=== PATIENT | female | born 1950 | race American Indian/Alaskan Native ===

== ENCOUNTER 2016-10-07 15:05 | Emergency (ER) | payer MEDICARE ==
[2016-10-07] MEDS ORDERED: BOOSTRIX IM ONE (18:47)
[2016-10-07] MEDS ORDERED: NORCO 5/325 PO ONE (18:48)
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
[2016-10-07 18:58] LABS: Basophils % (Auto) 0.3 % (0.0-1.8); Eosinophils % (Auto) 0.1 % (0.0-4.3); Hemoglobin 9.6 gm/dl (10.1-14.3); Mean Corpuscular HGB Conc 32 % (30-34); Mean Corpuscular Hemoglobin 29 pg (28-32); Mean Corpuscular Volume 91 fl (79-97); Platelet Count 310 K/mm3 (140-440); Red Blood Count 3.31 M/mm3 (3.65-5.03); Red Cell Distribution Width 15.2 % (13.2-15.2)
[2016-10-07 19:08] LABS: BUN/Creatinine Ratio 5.86; Calcium 9.6 mg/dL (8.4-10.2); Chloride 90.7 mmol/L (98-107); Potassium 5.2 mmol/L (3.6-5.0)
[2016-10-07 19:13] LABS: INR 1.16 (0.87-1.13)
[2016-10-07 19:14] LABS: Partial Thromboplastin Time 28.7 Sec. (24.2-36.6)
[2016-10-07] MEDS ORDERED: TRIPLE ANTIBIOTIC TP ONE ×2 (19:44→21:18)
[2016-10-07] MEDS ORDERED: ZOFRAN IV ONE (19:59)
[2016-10-07] MEDS ORDERED: BACITRACIN (ED) OINT PACKET TP ONE (20:00)
--- NOTE | 2016-10-07 20:00 | Cat Scan Report ---
FINAL REPORT EXAM: CT CERVICAL SPINE WO CON HISTORY: fall, hit head, on blood thinners TECHNIQUE: CT imaging is acquired through the cervical spine without contrast. Transaxial, coronal and sagittal reformations are provided. PRIORS: None. FINDINGS: Diffuse demineralization. The cervical spine is intact. Vertebral body heights are preserved. No acute fracture or listhesis. Atlanto-dens interval and odontoid process are intact. Intervertebral disc narrowing is moderate with associated endplate spondylosis C5-C6.. No perivertebral soft tissue swelling or hematoma identified. Limited soft tissue exam of the visualized neck is remarkable for a partially imaged right chest port, as well as scattered carotid calcifications. IMPRESSION: No acute cervical spine fracture identified. Sensitivity of fracture detection is decreased by demineralization and degenerative findings. Correlate with physical exam and follow up as warranted.
--- NOTE | 2016-10-07 20:02 | Cat Scan Report ---
FINAL REPORT EXAM: CT HEAD/BRAIN WO CON HISTORY: fall, hit head, on blood thinners TECHNIQUE: CT imaging is acquired through the brain without contrast. Transaxial reformations are provided. PRIORS: None. FINDINGS: Ventricles and CSF spaces are proportionately enlarged, consistent with parenchymal atrophy. Scattered deep and subcortical white matter hypodense foci are confluent in some areas and are compatible with microvascular angiopathy. No acute intracranial hemorrhage or mass effect. Left frontal and periorbital soft tissue swelling. Partially imaged fluid in the left maxillary sinus. Please see CT face of the same date. IMPRESSION: No acute intracranial abnormality. There are chronic sequela of atrophy and microvascular angiopathy. Left frontal and periorbital soft tissue swelling with fluid in the left maxillary sinus. Please see CT face of the same date.
--- NOTE | 2016-10-07 20:12 | Cat Scan Report ---
FINAL REPORT EXAM: CT FACIAL BONES WO CON HISTORY: fall, left facial injury TECHNIQUE: CT images are acquired through the face without contrast. Transaxial coronal and sagittal reformations are provided. PRIORS: Head CT of the same date FINDINGS: No facial fracture identified. Specifically, bony orbits, nasal bones and septum, pterygoid plates, mandible and maxilla appear intact.. Apical lucencies in the maxilla or most prominent about the left lateral incisor seen on coronal image 15. Streak artifact is present from dental catholic. Normal spherical shape of the globes. Retro bulbar fat is unremarkable. Preseptal left periorbital and left frontal soft tissue swelling and stranding. Hyperostosis frontalis. There is moderate mucosal thickening with a fluid level in the left maxillary sinus. Mild frontal ethmoid and right maxillary mucosal thickening in. A small fluid level is also present in the sphenoid sinus. The imaged nasopharynx is unremarkable. Mastoid air cells are unremarkable. IMPRESSION: No facial fracture. Mucosal thickening and fluid level in the left maxillary sinus are favored to be secondary to infection/sinusitis. Left maxillary incisor periapical lucency is concerning for dental infection. Clinical correlation is requested.
[2016-10-07] MEDS ORDERED: ZOFRAN ODT PO ONE (20:23)
[2016-10-07 20:37] VITALS: BP 138/76
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
[2016-10-07] MEDS ORDERED: KIONEX PO ONE (20:46)
[2016-10-08] MEDS ORDERED: TRIPLE ANTIBIOTIC TP ONE (03:27)
== END 2016-10-07 21:25 | disposition home or self-care (01) ==
LOC: ED 15:05
DX: S09.90XA Unspecified injury of head, initial encounter (principal); S80.01XA Contusion of right knee, initial encounter; I12.0 Hypertensive chronic kidney disease with stage 5 chronic kidney disease or end stage renal disease; N18.6 End stage renal disease; E87.5 Hyperkalemia; Z86.73 Personal history of transient ischemic attack (TIA), and cerebral infarction without residual deficits; I25.2 Old myocardial infarction; E11.9 Type 2 diabetes mellitus without complications; W01.0XXA Fall on same level from slipping, tripping and stumbling without subsequent striking against object, initial encounter; Y93.01 Activity, walking, marching and hiking; Y92.89 Other specified places as the place of occurrence of the external cause; Y99.8 Other external cause status
CPT/HCPCS: 36415; 70450; 70486; 72125; 80048; 85025; 85610; 85730; 90471; 90715; 93005; 93010; A6250; Q0162

== ENCOUNTER 2016-10-11 23:43 | Inpatient (IN) | payer MEDICARE ==
[2016-10-11] MEDS ORDERED: D50W (25GM) IV ONE (23:59)
[2016-10-12] MEDS ORDERED: D50W (25GM) IV ONE (00:07)
[2016-10-12] MEDS ORDERED: ZOFRAN IV ONE (00:08)
[2016-10-12 00:29] LABS: Mean Corpuscular HGB Conc 27 % (30-34); Mean Corpuscular Hemoglobin 29 pg (28-32); Mean Corpuscular Volume 105 fl (79-97); Platelet Count 529 K/mm3 (140-440); Red Blood Count 3.32 M/mm3 (3.65-5.03); Red Cell Distribution Width 16.7 % (13.2-15.2); White Blood Count 17.4 K/mm3 (4.5-11.0)
[2016-10-12 00:34] LABS: Hematocrit 34.9 % (30.3-42.9); Hemoglobin 9.4 gm/dl (10.1-14.3)
[2016-10-12 00:42] LABS: Albumin 3.3 g/dL (3.9-5); Albumin/Globulin Ratio 0.7 %; BUN/Creatinine Ratio 5.83; Bilirubin,Total 0.3 mg/dL (0.1-1.2); Calcium 9.9 mg/dL (8.4-10.2); Chloride 83.6 mmol/L (98-107); Potassium 5.3 mmol/L (3.6-5.0); Total Protein 8.1 g/dL (6.3-8.2)
--- NOTE | 2016-10-12 00:57 | Emergency Department Report ---
ED General Adult HPI - General Stated complaint: NAUSEA/VOMITING Time Seen by Provider: 10/12/16 00:02 Source: patient, family Mode of arrival: Stretcher Limitations: Altered Mental Status (ed caveat for altered mental status) - History of Present Illness Initial comments: This is a 66-year-old female brought in by EMS after nephew noted the patient to be unresponsive. EMS arrived on scene and found patient to have low blood sugar. He was given oral glucose. She did have some increase in temperature of her mental status. And was brought to us. Upon arrival here she still noted to be quite altered. IV was established patient was given D50 with good results. Patient still seems to be quite agitated and uncomfortable. She still has significant confusion as well. Daughter is at the bedside and is the major historian at this time. Daughter indicates patient is new onset end-stage renal disease with hemodialysis. She did get dialyzed on Friday and Friday. She went for dialysis this morning but apparently her catheter was clogged and could not be dialyzed. She is supposed to follow-up on Friday for reassessment of her catheter. Patient has had poor oral intake in general. She apparently has had other episodes of hypoglycemia. The daughter indicates this one seems much worse than the prior ones. Recent admission to the hospital one week ago which sounds similar to presentation today as well. She had metabolic acidosis at that time as well combination likely due to uremia as well as lactic acidosis. She was on a bicarbonate drip and ultimately require required hemodialysis. The patient specifically complains of some nausea. No vomiting. Minimal abdominal pain. -: Gradual, hour(s) Location: abdomen Radiation: non-radiation - Related Data Home Medications Medication Instructions Recorded Confirmed Last Taken AtorvaSTATin [Lipitor] 80 mg PO HS 09/27/16 10/07/16 09/25/16 Colchicine 0.6 mg PO BID 09/27/16 10/07/16 09/25/16 Ranitidine HCl [Zantac 300 MG TAB] 300 mg PO DAILY 09/27/16 10/07/16 09/25/16 metFORMIN [Glucophage] 500 mg PO BID 09/27/16 10/07/16 09/25/16 Previous Rx's Medication Instructions Recorded Last Taken Type Losartan [Cozaar] 100 mg PO QDAY #30 tablet 10/05/16 Unknown Rx Sodium Polystyrene Sulfonate 45 gm PO ONCE #180 ml 10/07/16 Unknown Rx traMADol [Ultram] 50 mg PO Q6HR PRN #10 tablet 10/07/16 Unknown Rx Allergies Allergy/AdvReac Type Severity Reaction Status Date / Time No Known Allergies Allergy Unverified 09/26/16 13:51 ED Review of Systems ROS: Stated complaint: NAUSEA/VOMITING Other details as noted in HPI Comment: Unobtainable due to pts medical conditions Respiratory: denies: cough Cardiovascular: denies: chest pain Gastrointestinal: abdominal pain, nausea. denies: vomiting, diarrhea ED Past Medical Hx - Past Medical History Hx Hypertension: Yes Hx CVA: Yes Hx Heart Attack/AMI: Yes Hx Diabetes: Yes Hx Renal Disease: Yes Hx HIV: No - Surgical History Hx Open Heart Surgery: Yes (CABG 2005) - Social History Smoking Status: Never Smoker - Medications Home Medications: Home Medications Medication Instructions Recorded Confirmed Last Taken Type AtorvaSTATin [Lipitor] 80 mg PO HS 09/27/16 10/07/16 09/25/16 History Colchicine 0.6 mg PO BID 09/27/16 10/07/16 09/25/16 History Ranitidine HCl [Zantac 300 MG TAB] 300 mg PO DAILY 09/27/16 10/07/16 09/25/16 History metFORMIN [Glucophage] 500 mg PO BID 09/27/16 10/07/16 09/25/16 History Losartan [Cozaar] 100 mg PO QDAY #30 tablet 10/05/16 10/07/16 Unknown Rx Sodium Polystyrene Sulfonate 45 gm PO ONCE #180 ml 10/07/16 Unknown Rx traMADol [Ultram] 50 mg PO Q6HR PRN #10 tablet 10/07/16 Unknown Rx ED Physical Exam - General Limitations: Altered Mental Status General appearance: lethargic, in distress, other (rapid breathing) - Head Head exam: Present: other (L forehead and L periorbital region with ecchymoses c /w 4-5 days. No bony depression appreciated.) - Eye Eye exam: Present: PERRL, EOMI, other (Large L subconj hematoma. ) - ENT ENT exam: Present: normal orophraynx, mucous membranes dry - Neck Neck exam: Present: full ROM. Absent: tenderness, meningismus, lymphadenopathy - Respiratory Respiratory exam: Present: other (tachypnea). Absent: wheezes, rales, decreased breath sounds - Cardiovascular Cardiovascular Exam: Present: tachycardia, other (L chest wall with port-a-cath in place. No surrounding erythema). Absent: systolic murmur, diastolic murmur - GI/Abdominal GI/Abdominal exam: Present: soft, tenderness (mild), normal bowel sounds. Absent: guarding, rebound - Extremities Exam Extremities exam: Present: pedal edema (trace). Absent: tenderness, calf tenderness - Back Exam Back exam: Absent: CVA tenderness (R), CVA tenderness (L), paraspinal tenderness , rash noted - Neurological Exam Neurological exam: Present: other (follows very simple commands. Moves all 4 extremities spontaneously. He is quite somnolent here.) - Skin Skin exam: Present: warm, dry, intact. Absent: diaphoretic ED Course Vital Signs 10/12/16 10/12/16 10/12/16 00:05 00:26 02:00 Temperature Pulse Rate 118 H 111 H Respiratory 34 H 24 Rate Blood Pressure 158/80 Blood Pressure 154/77 [Left] O2 Sat by Pulse 100 98 96 Oximetry 10/12/16 10/12/16 10/12/16 02:43 03:00 03:46 Temperature 92.7 F L Pulse Rate 99 H Respiratory 21 Rate Blood Pressure Blood Pressure 132/113 76/49 [Left] O2 Sat by Pulse 96 Oximetry 10/12/16 10/12/16 04:30 04:45 Temperature Pulse Rate 97 H 94 H Respiratory 15 16 Rate Blood Pressure Blood Pressure 78/39 75/42 [Left] O2 Sat by Pulse 100 99 Oximetry - Reevaluation(s) Reevaluation #1: 10/12/16 02:25 ECG at 0046 with sinus tachycardia at 119 bpm normal AL and QRS is noted. Nonspecific ST-T wave abnormalities are noted. Normal Moira is noted. Reevaluation #2: 10/12/16 02:36 Patient is not well-appearing here appears to be acidotic. Tachypnea is noted. CO2 is 5 here. Lactate is noted to be quite high at 20 patient was given 1 L saline bolus due to appearing dehydrated as well as needing to wash out the lactate. A little bit limited as she is only minimally urine producing. She does need dialysis. Did look for infectious etiology chest x-ray appears normal. Awaiting urinalysis. Cell count noted to be elevated troponin is also noted be elevated. Suspect this is more a stress response and a primary cardiac etiology. ECG does not demonstrate STEMI. CT brain is negative for acute process. Dr. Vasquez from hospitalist service was contacted regarding this patient. I consider to be in septic shock. I did start her empirically on antibiotics. I do not see etiology to this though I do feel it is a possibility. Her acidosis appears consistent with the lactate as well as probably uremia component as well. Suspicion is her hypoglycemia is secondary to the other conditions described though it could be the primary problem and they cause for the other systems noted as well 10/12/16 06:07 Reevaluation #3: 10/12/16 06:07 Central line was placed to the pressures continuing to drop. The patient was started on norepinephrine. She will be admitted to the ICU. Passive rewarming has been taking place as well with Iqra perry. - Central Line Placement Left SC Consent Obtained: emergent situation Time Out Performed: Yes Patient Placed on Monitor/Pulse Ox: Yes MD Prep: mask, gown, gloves Central Line Prep: Chlorhexidine scrub Local Anesthesia Used: Lidocaine 1% Amount of Anesthesia Used (mls): 1 Ultrasound Used for Placement: Yes Central Line Lumen Inserted: triple Bloods Obtained for Lab: Yes Central Line Position: good blood return, sutured in place with 2-0, other ( proximal port failed to return blood but flushes well.) Dressing Applied: Tegaderm Post Procedure X-Ray: tip of catheter in good p Patient Tolerated Procedure: well ED Medical Decision Making - Lab Data Result diagrams: 10/12/16 00:02 10/12/16 00:02 - Radiology Data Radiology results: report reviewed, image reviewed interpreted by me: Chest x-ray with out acute. Chest x-ray without acute CT brain without acute process. Small ischemic changes are noted please refer to the CT results. Critical Care Time: Yes Critical care time in (mins) excluding proc time.: 45 Critical care attestation.: If time is entered above; I have spent that time in minutes in the direct care of this critically ill patient, excluding procedure time. ED Disposition Clinical Impression: Septic shock, Renal failure, Lactic acidosis, Hypoglycemia Disposition: OP ADMITTED IP TO THIS HOSP Is pt being admited?: Yes Does the pt Need Aspirin: No Condition: Stable Time of Disposition: 02:26
[2016-10-12] MEDS ORDERED: NACL 0.9% 1000 ML 1,000 ML IV ONE ×6 (01:06→11:42)
[2016-10-12 01:46] LABS: Bilirubin,Urine NEG (Negative); Blood,Urine SM (Negative); Ketones,Urine TR mg/dL (Negative); Leukocyte Esterase,Urine NEG (Negative); Nitrite,Urine NEG (Negative); RBC,Urine < 1.0 /HPF (0.0-6.0); Urobilinogen,Urine < 2.0 mg/dL (<2.0)
[2016-10-12] MEDS ORDERED: ROCEPHIN/NS 1 GM/50 ML 1 GM/50 ML BAG IV ONE (02:02)
--- NOTE | 2016-10-12 02:09 | Cat Scan Report ---
FINAL REPORT PROCEDURE: CT HEAD/BRAIN WO CON TECHNIQUE: Computerized tomography of the head was performed without contrast material. HISTORY: trauma COMPARISON: 10/07/2016 FINDINGS: Skull and scalp: There is left frontal scalp swelling. There is no skull fracture.. Paranasal sinuses: Normal. Ventricles and subarachnoid spaces: There is advanced central and cortical atrophy. There is no hydrocephalus or asymmetry.. Cerebrum: No evidence of hemorrhage, acute infarction or mass . Cerebellum and brainstem: No evidence of hemorrhage, acute infarction or mass. There is an old lacunar infarct defect in the kenny. Vasculature: Normal. Comments: There is chronic deep white matter ischemic gliosis. There are old lacunar infarct defects in the basal ganglia bilaterally.. IMPRESSION: There are chronic involutional and ischemic changes. There is no intracranial hemorrhage. There is left frontal scalp swelling.
[2016-10-12 02:34] LABS: Basophils % (Manual) 0 % (0.0-1.8); Blastocytes % (Manual) 0 %; Eosinophils % (Manual) 0 % (0.0-4.3); Total Cells Counted Percent 0
[2016-10-12 02:35] LABS: Anisocytosis 1+; Hypochromasia 1+
[2016-10-12 02:36] LABS: Burr Cells 1+; Diff Status Complete; Large Platelets Few; Platelet Estimate Consistent w Auto
[2016-10-12] MEDS ORDERED: SODIUM BICARBONATE 150 MEQ in D5W 1,000 ML IV ONE (03:45)
[2016-10-12] MEDS: LEVOPHED DRIP 4 MG/NS 250 ML 4 MG/250 ML BAG IV SCH ×2 (05:28→13:49)
--- NOTE | 2016-10-12 07:49 | XRay Report ---
FINAL REPORT PROCEDURE: XRAY CHEST SINGLE VIEW TECHNIQUE: Chest radiograph anteroposterior view. CPT 37411 HISTORY: Nausea and Vomiting. Diabetes. Dialysis PT. Septic Shock. Renal Failure. Acidosis. COMPARISON: Chest one view 09/26/2016 FINDINGS: Vaso cath has its tip projecting over the SVC as well as noted smaller line overlying the left neck tip projecting over the SVC. Prior CABG noted. The heart is top-normal in size. There no focal infiltrate, pneumothorax or definite pleural fluid. The thoracic cage is intact. IMPRESSION: No radiographically evident acute disease.
[2016-10-12 09:02] LABS: Albumin 2.7 g/dL (3.9-5); Albumin/Globulin Ratio 0.7 %; Alkaline Phosphatase 99 units/L (35-129); BUN/Creatinine Ratio 6.04; Bilirubin,Total 0.2 mg/dL (0.1-1.2); Blood Urea Nitrogen 52 mg/dL (7-17); Calcium 9.2 mg/dL (8.4-10.2); Chloride 81.9 mmol/L (98-107); Glucose 320 mg/dL (65-100); Sodium 139 mmol/L (137-145); Total Protein 6.4 g/dL (6.3-8.2)
[2016-10-12 09:07] LABS: Anion Gap 60 mmol/L
[2016-10-12 09:11] LABS: Alanine Aminotransferase < 5 units/L (7-56); Carbon Dioxide 3 mmol/L (22-30)
[2016-10-12 09:24] LABS: ISTAT Base Excess -26; ISTAT HCO3 4.1; ISTAT PCO2 13.8 (35-45); ISTAT PO2 155 (80-105); ISTAT SO2 99; ISTAT TCO2 < 5
[2016-10-12] MEDS ORDERED: SODIUM BICARBONATE IV ONE ×4 (09:28→10:30)
--- NOTE | 2016-10-12 09:32 | XRay Report ---
AP CHEST: HISTORY: Altered mental status CABG changes and right IJ venous catheter are unchanged since 09/26/16. Heart and mediastinal structures are within normal limits. The lungs are clear. No pleural effusion or pneumothorax. IMPRESSION: No acute cardiopulmonary process.
[2016-10-12] MEDS ORDERED: SODIUM BICARBONATE 150 MEQ in D5W 1,000 ML IV SCH (10:00)
--- NOTE | 2016-10-12 11:42 | Event Note ---
Date: 10/12/16 See H/p in reports Sepsis Hypoglycemia ESRD on HD Hypotension on levophed GERD Vas cath malfunction
--- NOTE | 2016-10-12 11:49 | Consultation ---
History of Present Illness - Reason for Consult Consult date: 10/12/16 Metabolic acidosis, Hypotension, hyperkalemia Requesting physician: MILI RIOS - History of Present Illness 66 y/o female with ESRD on HD, admitted with toxic encephalopathy, and hypotension. Mixed reports but per nursing who spoke with daughter, patient found down at home. was brought to ED and was hypotensive. Questionable if she had HD this week or not. Per Daughter, missed M and yesterday but had HD on Friday. In the ED appears a venous pH was less than 7. Bicarb drip was started and patient was started on vasopressors and transferred to ICU this am during shift change. An ABG was ordered and I was called with the results. I had not been notified about this patient prior to arrival to ICU. pH this am was 7. CO2 was 13. Bicarb was 3 and Lactic acid is 23. I ordered 4 more liter boluses of fluid (patient satting 100% on room air) and ordered bicarb pushes. IT does not appear that renal or IR were notified until this am as well. Patient is obtunded but responds to painful stimuli. Remainder is negative. Past History Past Medical History: diabetes, ESRD, GERD, hypertension, hyperlipidemia, other (all history obtained from chart as patient cannot provide at this time. ) Medications and Allergies Allergies Allergy/AdvReac Type Severity Reaction Status Date / Time No Known Allergies Allergy Unverified 09/26/16 13:51 Home Medications Medication Instructions Recorded Confirmed Last Taken Type AtorvaSTATin [Lipitor] 80 mg PO HS 09/27/16 10/12/16 09/25/16 History Colchicine 0.6 mg PO BID 09/27/16 10/12/16 09/25/16 History Ranitidine HCl [Zantac 300 MG TAB] 300 mg PO DAILY 09/27/16 10/12/16 09/25/16 History metFORMIN [Glucophage] 500 mg PO BID 09/27/16 10/12/16 09/25/16 History Losartan [Cozaar] 100 mg PO QDAY #30 tablet 10/05/16 10/12/16 Unknown Rx Sodium Polystyrene Sulfonate 45 gm PO ONCE #180 ml 10/07/16 10/12/16 Unknown Rx traMADol [Ultram] 50 mg PO Q6HR PRN #10 tablet 10/07/16 10/12/16 Unknown Rx Active Meds: Active Medications Norepinephrine (Levophed Drip 4 Mg/Ns 250 Ml) 4 mg in 250 mls @ 18.75 mls/hr IV TITR GUANACO; 5 MCG/MIN PRN Reason: Protocol Last Titration: 10/12/16 10:18 Dose: 8 mcg/min, 30 mls/hr Sodium Bicarbonate 150 meq/ (Dextrose) 1,150 mls @ 250 mls/hr IV DIRECT GUANACO Vasopressin 20 unit/ Sodium (Chloride) 101 mls @ 12.12 mls/hr IV TITR GUANACO; 0.04 UNITS/MIN PRN Reason: Protocol Sodium Chloride (Nacl 0.9% 1000 Ml) 1,000 mls @ 999 mls/hr IV BOLUS ONE Stop: 10/12/16 12:41 Sodium Chloride (Nacl 0.9% 1000 Ml) 1,000 mls @ 999 mls/hr IV BOLUS ONE Stop: 10/12/16 12:42 Sodium Chloride (Nacl 0.9% 1000 Ml) 1,000 mls @ 999 mls/hr IV BOLUS ONE Stop: 10/12/16 12:42 Influenza Virus Vaccine Quadrival (Fluarix Quad 2755-4625(36 Mos+)) 60 mcg IM .ONCE ONE Stop: 10/13/16 12:01 Insulin Human Regular (Novolin R) 10 units IV ONCE ONE Stop: 10/12/16 12:01 Pneumococcal Polyvalent Vaccine (Pneumovax 23) 0.5 ml IM .ONCE ONE Stop: 10/13/16 08:43 Review of Systems ROS unobtainable: due to mental status Exam - Constitutional Vitals: Temp Pulse Resp BP Pulse Ox 94.3 F L 115 H 27 H 124/60 100 10/12/16 08:00 10/12/16 08:40 10/12/16 08:40 10/12/16 08:40 10/12/16 08:40 General appearance: Present: no acute distress, disheveled, other (black left eye with some hemorrhage) - EENT ENT: hearing intact, poor dentition - Neck Neck: Present: supple Details: EVidence of prior venous access sticks on right side of neck - Respiratory Respiratory effort: other (tachypnic, which appropriate based on acid base status) Respiratory: bilateral: CTA Details: Patient with HD catheter in right chest Results - Labs CBC & Chem 7: 10/12/16 00:02 10/12/16 08:05 Labs: Abnormal lab results 10/12/16 10/12/16 10/12/16 Range/Units 06:45 07:51 08:05 POC ABG pH (7.35-7.45) POC ABG pCO2 (35-45) POC ABG pO2 (80-105) VBG pH 6.953 L* (7.320-7.420) Potassium 6.0 H (3.6-5.0) mmol/L Chloride 81.9 L (98-107) mmol/L Carbon Dioxide 3 L* (22-30) mmol/L BUN 52 H (7-17) mg/dL Creatinine 8.6 H (0.7-1.2) mg/dL Glucose 320 H (65-100) mg/dL POC Glucose 298 H (70-105) Lactic Acid (0.7-2.0) mmol/L ALT < 5 L (7-56) units/L Albumin 2.7 L (3.9-5) g/dL 10/12/16 10/12/16 10/12/16 Range/Units 08:05 08:42 11:13 POC ABG pH 7.080 L (7.35-7.45) POC ABG pCO2 13.8 L (35-45) POC ABG pO2 155 H (80-105) VBG pH (7.320-7.420) Potassium (3.6-5.0) mmol/L Chloride (98-107) mmol/L Carbon Dioxide (22-30) mmol/L BUN (7-17) mg/dL Creatinine (0.7-1.2) mg/dL Glucose (65-100) mg/dL POC Glucose 281 H (70-105) Lactic Acid 22.7 H* (0.7-2.0) mmol/L ALT (7-56) units/L Albumin (3.9-5) g/dL - Imaging and Cardiology Chest x-ray: image reviewed (Cardiomegaly with clear lung krueger, prior surgical clips) Assessment and Plan 66 y/o female with toxic encephalopathy secondary to severe metabolic acidosis with elevated lactic acid and renal failure, possible from lack of HD vs, sepsis vs ischemia with shock, most likely related to profound acidemia and hyperkalemia. 1. Insulin 10 units. Patient already on D5 with Bicarb drip. Also given 2 amps of bicarb pushed this am 2. Will add vasopressin to levophed to help with blood pressure given profound acidemia, doubt that levophed is helping much 3. Continue to bolus IVF's, despite renal disease. 4. Serial lactic acids, at least q 6hours 5. Will discuss with RT about obtaining art line if possible 6. At this point, not indicated for intubation as she is able to protect her airway, however she is critically il. 7. Follow up with renal in regards to HD, hopeful they can do this soon Overall prognosis is guarded to poor. No family at bedside. CCT 31 minutes.
[2016-10-12] MEDS ORDERED: NACL 0.9% 100 ML IV PRN (12:14)
[2016-10-12] MEDS: PITRESSin 20 UNIT in NACL 0.9% 100 ML IV SCH (12:25)
--- NOTE | 2016-10-12 13:14 | XRay Report ---
SUPINE KUB: History: Dobbhoff tube placement. The abdominal gas pattern is unremarkable. No masses or organomegaly is identified and there is no gross evidence of free air or fluid. No significant soft tissue calcifications are noted. The Dobbhoff tube is coiled in the fundus of the stomach. IMPRESSION: Normal study.
[2016-10-12] MEDS ORDERED: VANCOMYCIN PHARMACY TO DOSE IV SCH (14:00)
--- NOTE | 2016-10-12 14:18 | History and Physical Report ---
CHIEF COMPLAINT: Altered mental status and low blood sugar. HISTORY OF PRESENT ILLNESS: A 66-year-old female, who was recently started on hemodialysis, brought in for low blood sugar and altered mental status. The patient has fever and altered mental status. On arrival, she was found to be quite altered. D50 was given with good results, but the patient seemed to be quite agitated and uncomfortable, was still confused. The patient had new onset end-stage renal disease with hemodialysis. She did get dialyzed on Friday and Friday; today is Friday, she went for dialysis, where the catheter was clogged and could not be dialyzed. She was supposed to follow up on Friday for reassessment for catheter. The patient had poor oral intake in general. She has been having episodes of hypoglycemia. She has history of diabetes and was on metformin till recently and metformin was not discontinued in spite of worsening renal function. PAST MEDICAL HISTORY: As mentioned, significant for hypertension, cerebrovascular accident, end-stage renal disease , and diabetes. PAST SURGICAL HISTORY: Coronary artery bypass graft in 2005. SOCIAL HISTORY: Does not smoke. No alcohol, no recreational drugs. Lives with family. FAMILY HISTORY: Significant for hypertension. CURRENT MEDICATIONS: Atorvastatin 80 mg p.o. at bedtime, colchicine 0.6 twice a day, ranitidine 300 mg once a day, metformin 500 mg twice a day, losartan 100 mg once a day, sodium polystyrene sulfonate 45 g once a day, and tramadol 50 mg p.o. q.6. REVIEW OF SYSTEMS: Significant for altered sensorium, agitation, confusion, and fever. PHYSICAL EXAMINATION: GENERAL: Elderly female, altered sensorium, agitated, lying in bed. VITAL SIGNS: Temperature was 92.7, pulse rate is 118, respiratory rate is 34, and blood pressure was 154/77, which later dropped to 76/49 and 75/42. HEENT: Unremarkable. Pupils are equal and reactive. NECK: Supple, no lymphadenopathy, no thyromegaly. LUNGS: Clear to auscultation and percussion. Good air entry. CARDIOVASCULAR: S1, S2 heard. No gallop, no murmur, no rub. Apical impulse in left fifth intercostal space and midclavicular line. ABDOMEN: Soft and benign. No hepatosplenomegaly. No guarding, no rigidity. Hernial orifices are normal. EXTREMITIES: Good pedal pulses. No pedal edema. CENTRAL NERVOUS SYSTEM: Lethargic, altered sensorium, decreased responsiveness, and agitated occasionally. SKIN: Normal. LABORATORY DATA: Significant for white count of 17,400; hemoglobin of 9.4 and hematocrit of 34.9. As mentioned sodium is 139, potassium is 5.3, chloride is 83.6, bicarbonate is 5, glucose is 19. Lactic acid is 20.2. Lipase is 214. Urine negative. Head CT was normal. Chest x-ray shows no acute cardiopulmonary process. ASSESSMENT AND PLAN: 1. Septic shock syndrome. The patient is put on IV Zosyn, IV fluids, and IV Levophed. 2. Hypoglycemia corrected. Persistent hypoglycemia secondary to end-stage renal disease and metformin. Metformin is stopped. Metformin needs to be discontinued totally because of the high creatinine. Continue hemodialysis. Vascath malformation. 3. Vascath malformation, Vascular Surgery consult requested. 4. End-stage renal disease, needing dialysis. Nephrology consulted. 5. Hypotension, IV Levophed titrated to keep the systolic blood pressure over 100. 6. Type 2 diabetes. The patient does not need to be on metformin. We will hold metformin and Accu-Cheks in the morning and at bedtime coverage. 7. Hypertension. We will hold antihypertensives as the patient is hypotensive. 8. Gastroesophageal reflux disease. Continue ranitidine. 9. Deep venous thrombosis prophylaxis, heparin 5000 q.12. The patient is critically ill. In the ED, the patient was started with a central line on IV Levophed and IV antibiotics. Also, possibly to be done. CRITICAL CARE STATEMENT: The high probability of a clinically significant sudden or life-threatening deterioration of the cardiopulmonary system required my full and direct attention, intervention, and personal management. The aggregate critical care time was 40 minutes. This time is in addition to time spent performing reported procedures, but includes the following; data review and interpretation, the patient's assessment and monitoring of vital signs, documentation, medication orders and management. JOB# [id number] MORENA/JAYDEN CLAY
[2016-10-12] MEDS ORDERED: KIONEX PO ONE (14:32)
--- NOTE | 2016-10-12 14:44 | XRay Report ---
FINAL REPORT PROCEDURE: XR ABDOMEN 1V AP TECHNIQUE: AP view HISTORY: Right femoral Vas Cath placement COMPARISON: None FINDINGS: Right femoral Vas-Cath has been placed, catheter tip overlying the expected location of the IVC superior L2 level. There is a dense calcification of the left hemipelvis 6.2 x 6.5 centimeters likely a calcified fibroid. Bowel gas pattern is nonspecific. Feeding tube is in place coiled within the stomach. There is no acute osseous abnormality. IMPRESSION: Right femoral Vas-Cath in place, distal catheter tip at the superior L2 vertebral body level. Feeding tube in place. No radiographically evident acute abdominal disease. Calcified fibroid.
[2016-10-12] MEDS: ZOSYN/NS 2.25 GM/50ML 2.25 GM/50 ML BAG IV SCH (14:49)
[2016-10-12] MEDS ORDERED: VANCOMYCIN VIAL 500 MG in NACL 0.9% 100 ML IV SCH (15:00)
--- NOTE | 2016-10-12 16:11 | Consultation ---
History of Present Illness - Reason for Consult Consult date: 10/12/16 nonfunctioning vascular catheter - History of Present Illness 66 year old female with ESRD on HD who was admitted with toxic encephalopathy, and hypotension. According to the patient's daughter, she fell on Friday injuring her left face and one of her legs, had dialysis on Friday, but on Friday could not have dialysis due to catheter malfunction (clotted catheter). [facility] was not contacted. The patient had altered mental status with severe metabolic derangements including severe hypoglycemia (which the family reports this happened in the past) and was brought to the emergency room due to the mental status decline at home. Unclear if she was "found down". Consultation for nonfunctional PermCath. Evaluation of the right chest PermCath demonstrates no purulence or erythema. The patient is severely altered. Past History Past Medical History: diabetes, ESRD, GERD, hypertension, hyperlipidemia, other (all history obtained from chart as patient cannot provide at this time. ) Past Surgical History: Other (patient unable to provide history) Social history: other (patient unable to provide history) Family history: other (non-contributory) Medications and Allergies Allergies Allergy/AdvReac Type Severity Reaction Status Date / Time No Known Allergies Allergy Unverified 09/26/16 13:51 Home Medications Medication Instructions Recorded Confirmed Last Taken Type AtorvaSTATin [Lipitor] 80 mg PO HS 09/27/16 10/12/16 09/25/16 History Colchicine 0.6 mg PO BID 09/27/16 10/12/16 09/25/16 History Ranitidine HCl [Zantac 300 MG TAB] 300 mg PO DAILY 09/27/16 10/12/16 09/25/16 History metFORMIN [Glucophage] 500 mg PO BID 09/27/16 10/12/16 09/25/16 History Losartan [Cozaar] 100 mg PO QDAY #30 tablet 10/05/16 10/12/16 Unknown Rx Sodium Polystyrene Sulfonate 45 gm PO ONCE #180 ml 10/07/16 10/12/16 Unknown Rx traMADol [Ultram] 50 mg PO Q6HR PRN #10 tablet 10/07/16 10/12/16 Unknown Rx Active Meds: Active Medications Famotidine (Pepcid) 40 mg PO BID GUANACO Norepinephrine (Levophed Drip 4 Mg/Ns 250 Ml) 4 mg in 250 mls @ 18.75 mls/hr IV TITR GUANACO; 5 MCG/MIN PRN Reason: Protocol Last Admin: 10/12/16 13:49 Dose: 8 mcg/min, 30 mls/hr Sodium Bicarbonate 150 meq/ (Dextrose) 1,150 mls @ 250 mls/hr IV DIRECT GUANACO Last Admin: 10/12/16 12:30 Dose: 250 mls/hr Vasopressin 20 unit/ Sodium (Chloride) 101 mls @ 12.12 mls/hr IV TITR GUANACO; 0.04 UNITS/MIN PRN Reason: Protocol Last Admin: 10/12/16 12:25 Dose: 0.04 units/min, 12.12 mls/hr Piperacillin Sod/Tazobactam Sod (Zosyn/Ns 2.25 Gm/50ml) 2.25 gm in 50 mls @ 100 mls/hr IV Q8HR GUANACO PRN Reason: Protocol Last Admin: 10/12/16 14:49 Dose: 100 mls/hr Sodium Chloride (Nacl 0.9%) 100 mls @ 999 mls/hr IV ANDRES PRN PRN Reason: Hypotension Vancomycin HCl 500 mg/ Sodium (Chloride) 100 mls @ 66.667 mls/hr IV Q48H GUANACO Last Admin: 10/12/16 14:49 Dose: 66.667 mls/hr Influenza Virus Vaccine Quadrival (Fluarix Quad [id number](36 Mos+)) 60 mcg IM .ONCE ONE Stop: 10/13/16 12:01 Pneumococcal Polyvalent Vaccine (Pneumovax 23) 0.5 ml IM .ONCE ONE Stop: 10/13/16 08:43 Vancomycin HCl (Vancomycin Pharmacy To Dose) 1 each IV PKCONSULT GUANACO PRN Reason: Protocol Review of Systems ROS unobtainable: due to mental status Exam - Constitutional Vitals: Temp Pulse Resp BP Pulse Ox 94.3 F L 133 H 29 H 136/81 100 10/12/16 12:14 10/12/16 16:00 10/12/16 12:20 10/12/16 16:00 10/12/16 12:20 General appearance: Present: other (severely altered with intermittent random movements and attempts to get out of bed) - EENT ENT: other (altered) - Neck Neck: Present: other (right chest PermCath without purulence or erythema) - Extremities Extremities: normal temperature, normal color - Psychiatric Psychiatric: other (altered mental status) - Neurologic Neurologic: other (altered mental status) Results - Labs CBC & Chem 7: 10/12/16 00:02 10/12/16 08:05 Labs: Abnormal lab results 10/12/16 10/12/16 10/12/16 Range/Units 06:39 06:45 06:45 POC ABG pH (7.35-7.45) POC ABG pCO2 (35-45) POC ABG pO2 (80-105) VBG pH 6.953 L* (7.320-7.420) Potassium (3.6-5.0) mmol/L Chloride (98-107) mmol/L Carbon Dioxide (22-30) mmol/L BUN (7-17) mg/dL Creatinine (0.7-1.2) mg/dL Glucose (65-100) mg/dL POC Glucose 378 H 365 H (70-105) Lactic Acid (0.7-2.0) mmol/L ALT (7-56) units/L Albumin (3.9-5) g/dL 10/12/16 10/12/16 10/12/16 Range/Units 07:51 08:05 08:05 POC ABG pH (7.35-7.45) POC ABG pCO2 (35-45) POC ABG pO2 (80-105) VBG pH (7.320-7.420) Potassium 6.0 H (3.6-5.0) mmol/L Chloride 81.9 L (98-107) mmol/L Carbon Dioxide 3 L* (22-30) mmol/L BUN 52 H (7-17) mg/dL Creatinine 8.6 H (0.7-1.2) mg/dL Glucose 320 H (65-100) mg/dL POC Glucose 298 H (70-105) Lactic Acid 22.7 H* (0.7-2.0) mmol/L ALT < 5 L (7-56) units/L Albumin 2.7 L (3.9-5) g/dL 10/12/16 10/12/16 10/12/16 Range/Units 08:42 11:13 12:24 POC ABG pH 7.080 L (7.35-7.45) POC ABG pCO2 13.8 L (35-45) POC ABG pO2 155 H (80-105) VBG pH (7.320-7.420) Potassium (3.6-5.0) mmol/L Chloride (98-107) mmol/L Carbon Dioxide (22-30) mmol/L BUN (7-17) mg/dL Creatinine (0.7-1.2) mg/dL Glucose (65-100) mg/dL POC Glucose 281 H 256 H (70-105) Lactic Acid (0.7-2.0) mmol/L ALT (7-56) units/L Albumin (3.9-5) g/dL // Range/Units 14:06 POC ABG pH (7.35-7.45) POC ABG pCO2 (35-45) POC ABG pO2 (80-105) VBG pH (7.320-7.420) Potassium (3.6-5.0) mmol/L Chloride (98-107) mmol/L Carbon Dioxide (22-30) mmol/L BUN (7-17) mg/dL Creatinine (0.7-1.2) mg/dL Glucose (65-100) mg/dL POC Glucose 279 H (70-105) Lactic Acid (0.7-2.0) mmol/L ALT (7-56) units/L Albumin (3.9-5) g/dL Assessment and Plan 66-year-old female with end-stage renal disease and multiple metabolic abnormalities requiring urgent hemodialysis. Discussed with the patient's sister and daughter that she will need both a PermCath exchange once stable, and a Vas-Cath placement urgently for dialysis now. I also discussed with the family to contact [facility] vascular she has any further problems with her hemodialysis access. Overall, due to severe metabolic derangements, poor prognosis.
--- NOTE | 2016-10-12 16:21 | Operative Report ---
Operative Report Operative Report: EXAM: 1. Ultrasound-guided puncture of the right common femoral vein 2. Placement of a right common femoral vein triple lumen nontunneled noncuffed hemodialysis catheter. DATE: 10/12/16 ; I was alerted at approximately 10:30 AM about this consult; the procedure was started at approximately 12:30 to 1PM and required significant preparation including restraints for patient safety. INDICATION: End-stage renal disease with severe metabolic derangements requiring hemodialysis access. MEDICATIONS: Local anesthetic (1% lidocaine). DEVICES: Triple lumen nontunneled noncuffed hemodialysis catheter, 13 [place], 30 cm CAFETERIA DIRECTOR: NOEL CARRILLO MD CONTRAST: None PROCEDURE: The risks, benefits, and alternatives were discussed and informed consent was obtained by the patient's daughter. The patient's right common femoral vein was assessed with ultrasound at bedside and determined to be patent prior to procedure. The patient was prepped and draped in a sterile fashion. The puncture site was anesthetized. Under sonographic guidance, the right common femoral vein was punctured with a 18-gauge micropuncture needle and a 0.035 inch wire was advanced through the needle. Over the 0.035 inch wire, dilatation was performed. The catheter was advanced over the wire. 3-0 nylon suture was used to secure the catheter. The hemodialysis lumens of the catheter were charged with 1000 units of heparin per mL of space. The central lumen of the catheter was charged with saline. Biopatch and tegaderm were applied. Abdominal x ray was ordered and the patient tolerated the procedure without immediate post procedual complication. FINDINGS: 1. Ultrasound documented patency of the right common femoral vein. The vessel was accessed under direct ultrasound guidance. 2. On the post procedural abdominal x ray, the catheter tip is appropriately placed in the IVC, to the right of the spine. IMPRESSION: 1. Successful ultrasound guided bedside placement of a right common femoral vein triple lumen nontunneled noncuffed hemodialysis catheter.
[2016-10-12] MEDS ORDERED: NACL 0.9% 1000 ML 2,000 ML ONE (17:26)
[2016-10-12] MEDS: HEPARIN IV PRN (19:59)
--- NOTE | 2016-10-12 20:08 | Consultation ---
History of Present Illness - Reason for Consult Consult date: 10/12/16 end stage renal disease, metabolic acidosis - History of Present Illness History obtained from medical records due to patient's mental status Mrs. Hernandez is a 66yo w/ new ESRD who presented to the ED with hx of unresponsiveness at home. EMS arrived on scene and found patient was hypoglycemic and was given oral glucose. Upon arrival to ED, she remained altered and confused. Per outpatient dialysis clinic records, patient only dialyzed on Oct 11 last week. In ED, labs were notable for HCO3 5. Patient was admitted to the ICU. Nephrology was called this am by Dr. Cline re: metabolic acidosis Past History Past Medical History: diabetes, ESRD, GERD, hypertension, hyperlipidemia, other (all history obtained from chart as patient cannot provide at this time. ) Past Surgical History: Other (patient unable to provide history) Social history: other (patient unable to provide history) Family history: other (non-contributory) Medications and Allergies Allergies Allergy/AdvReac Type Severity Reaction Status Date / Time No Known Allergies Allergy Unverified 09/26/16 13:51 Home Medications Medication Instructions Recorded Confirmed Last Taken Type AtorvaSTATin [Lipitor] 80 mg PO HS 09/27/16 10/12/16 09/25/16 History Colchicine 0.6 mg PO BID 09/27/16 10/12/16 09/25/16 History Ranitidine HCl [Zantac 300 MG TAB] 300 mg PO DAILY 09/27/16 10/12/16 09/25/16 History metFORMIN [Glucophage] 500 mg PO BID 09/27/16 10/12/16 09/25/16 History Losartan [Cozaar] 100 mg PO QDAY #30 tablet 10/05/16 10/12/16 Unknown Rx Sodium Polystyrene Sulfonate 45 gm PO ONCE #180 ml 10/07/16 10/12/16 Unknown Rx traMADol [Ultram] 50 mg PO Q6HR PRN #10 tablet 10/07/16 10/12/16 Unknown Rx Active Meds: Active Medications Famotidine (Pepcid) 40 mg PO BID GUANACO Heparin Sodium (Porcine) (Heparin) 5,000 unit IV ANDRES PRN PRN Reason: hemodialysis Last Admin: 10/12/16 19:59 Dose: 5,000 unit Norepinephrine (Levophed Drip 4 Mg/Ns 250 Ml) 4 mg in 250 mls @ 18.75 mls/hr IV TITR GUANACO; 5 MCG/MIN PRN Reason: Protocol Last Admin: 10/12/16 13:49 Dose: 8 mcg/min, 30 mls/hr Sodium Bicarbonate 150 meq/ (Dextrose) 1,150 mls @ 250 mls/hr IV DIRECT GUANACO Last Admin: 10/12/16 12:30 Dose: 250 mls/hr Vasopressin 20 unit/ Sodium (Chloride) 101 mls @ 12.12 mls/hr IV TITR GUANACO; 0.04 UNITS/MIN PRN Reason: Protocol Last Admin: 10/12/16 12:25 Dose: 0.04 units/min, 12.12 mls/hr Piperacillin Sod/Tazobactam Sod (Zosyn/Ns 2.25 Gm/50ml) 2.25 gm in 50 mls @ 100 mls/hr IV Q8HR GUANACO PRN Reason: Protocol Last Admin: 10/12/16 14:49 Dose: 100 mls/hr Sodium Chloride (Nacl 0.9%) 100 mls @ 999 mls/hr IV ANDRES PRN PRN Reason: Hypotension Vancomycin HCl 500 mg/ Sodium (Chloride) 100 mls @ 66.667 mls/hr IV Q48H GUANACO Last Admin: 10/12/16 14:49 Dose: 66.667 mls/hr Influenza Virus Vaccine Quadrival (Fluarix Quad [id number](36 Mos+)) 60 mcg IM .ONCE ONE Stop: 10/13/16 12:01 Pneumococcal Polyvalent Vaccine (Pneumovax 23) 0.5 ml IM .ONCE ONE Stop: 10/13/16 08:43 Vancomycin HCl (Vancomycin Pharmacy To Dose) 1 each IV PKCONSULT GUANACO PRN Reason: Protocol Review of Systems ROS unobtainable: due to mental status Exam - Vital Signs Vital signs: Vital Signs Pulse Resp BP Pulse Ox 118 H 34 H 154/77 100 10/12/16 00:05 10/12/16 00:05 10/12/16 00:05 10/12/16 00:05 - General Appearance General appearance: well-developed, well-nourished EENT: other (ecchymosis - periorbital, left eye) Respiratory: Clear to Ascultation Heart: regular, S1S2 Gastrointestinal: Present: normal. Absent: tenderness, distended Integumentary: no rash Psychiatric: cooperative Results - Lab Results 10/12/16 22:43 10/12/16 21:13 Most recent lab results Calcium 9.2 mg/dL (8.4-10.2) 10/12/16 08:05 Assessment and Plan Impression: * End stage renal disease * Severe metabolic acidosis * Malfunctioning permcath * Sepsis * Anemia secondary to ESRD Plan: * Stat hemodialysis ordered this am; patient is seen s/p treatment * Reassess for need for HD tomorrow am * Access management per vascular surgery - femoral vas cath inserted as HD need emergent * Abx per primary team * Await culture data * Pressors prn maintain MAP>65 * Epogen for goal Hb 10-12
[2016-10-12 21:34] LABS: ISTAT Base Excess 3; ISTAT HCO3 25.4; ISTAT PCO2 29.4 (35-45); ISTAT PH 7.544 (7.35-7.45); ISTAT PO2 110 (80-105); ISTAT SO2 99; ISTAT TCO2 26
[2016-10-12 21:46] LABS: Hematocrit TNR % (30.3-42.9); Hemoglobin TNR gm/dl (10.1-14.3)
[2016-10-12 22:03] LABS: BUN/Creatinine Ratio 6.19; Chloride 94.4 mmol/L (98-107); Potassium 3.3 mmol/L (3.6-5.0)
[2016-10-12 22:19] LABS: Calcium 7.6 mg/dL (8.4-10.2)
[2016-10-12 23:08] LABS: Hematocrit 21.2 % (30.3-42.9); Hemoglobin 6.6 gm/dl (10.1-14.3)
[2016-10-13] MEDS: PEPCID PO SCH ×2 (00:34→10:05)
[2016-10-13] MEDS: ZOSYN/NS 2.25 GM/50ML 2.25 GM/50 ML BAG IV SCH ×4 (00:34→21:33)
--- NOTE | 2016-10-13 02:19 | Admit Criteria Form ---
Admission Criteria Documentation: SEPSIS and OTHER FEBRILE ILLNESS, W/O FOCAL INFECTION Clinical Indications for Admission to Inpatient Care ( Place 'X' for any and all applicable criteria): Admission is indicated for ANY ONE of the following (1)(2)(3)(4): [ ] I. Bacteremia [ ]II. Suspected or identified specific infection requiring hospitalization (eg, meningitis, endocarditis) [ ]III. Hemodynamic instability [ ]IV. Altered mental status [ ]V. Failure or unavailability of outpatient antimicrobial treatment [ ]. Hypoxemia [ ]VII. Seizures [ ]VIII. High-risk febrile neutropenia [ ]IX. Need for parenteral antibiotic in patient who is likely to abuse vascular access device (eg, injection drug user) [A](7) [ ]X. Temperature greater than 104.9 degrees F (40.5 degrees C) (oral) [X ]XI. Inpatient admission required rather than observation care because of ANY ONE of the following: [ ]1) Specific infection identified that is too severe for outpatient treatment or observation care trial [ X]2) Metabolic disorder (eg, hypoglycemia, hyperglycemia, metabolic acidosis) that is severe or persistent [ ]3) Temperature greater than 103.1 degrees F (39.5 degrees C) ( oral) that is not responsive to observation care treatment [ ]4) IV fluid to replace significant ongoing (eg, for over 24 hours) losses (> 3 L/m2 per day) [ ]5) Supplemental oxygen or respiratory treatments for over 24 hours that is performable only in acute inpatient setting [ ]6) Parenteral nutrition regimen need that must be implemented on inpatient basis [ ]7) Strict or protective (eg, laminar flow) isolation [X ]8) Other condition, treatment or monitoring requiring inpatient admission Extended stay beyond goal length of stay may be needed for(1)(3) [ ]a) Sepsis or septic shock(22) [ ]b) Positive blood cultures [ ]c) Insufficient oral intake [ ]d) High-risk febrile neutropenia(29)(30) [ ]e) Continued fever and clinical instability [ ]f) Clinically active comorbid illness (e.g,heart failure, renal failure , diabetes) The original [facility] content created by Sabino Valdez has been revised. The portions of the content which have been revised are identified through the use of italic text or in bold, and [email or web address] has neither reviewed nor approved the modified material. All other unmodified content is copyright [facility]. Please see references footnoted in the original [facility] edition 2016 Admission Criteria Met: Yes
[2016-10-13] MEDS: PITRESSin 20 UNIT in NACL 0.9% 100 ML IV SCH (03:37)
[2016-10-13] MEDS ORDERED: PNEUMOVAX 23 IM ONE (08:42)
--- NOTE | 2016-10-13 09:26 | XRay Report ---
AP PELVIS: History: Pelvic pain, right hip pain after fall. AP view of the pelvis shows normal pelvic contour and soft tissues. The hips are symmetric and within normal limits as are the sacroiliac joints. Large 7 cm calcified uterine fibroid is noted in the left side of the pelvis. A right femoral line is last visualized at the level of L2. IMPRESSION: No pelvic fracture or right hip abnormality appreciated.
[2016-10-13] MEDS ORDERED: NON-FORMULARY (Ranitidine Hcl [Zantac 300 Mg Tab] 300 MG) PO SCH (10:00)
--- NOTE | 2016-10-13 10:58 | Progress Note ---
Assessment and Plan Impression: * End stage renal disease * Severe metabolic acidosis - resolved * Malfunctioning permcath * Sepsis * Anemia secondary to ESRD Plan: * Acidosis improved with HD yesterday * Will plan for hemodialysis tomorrow * Access management per vascular surgery - femoral vas cath inserted as HD need emergent * Abx per primary team * Await culture data - blood cx NGTD * Pressors prn maintain MAP>65 * Epogen for goal Hb 10-12 Subjective Date of service: 10/13/16 Interval history: Patient more alert this am. Nods head to questions. Objective - Vital Signs Vital signs: Vital Signs - 12hr 10/12/16 10/12/16 10/12/16 22:56 23:00 23:01 Temperature Pulse Rate 99 H 98 H 101 H Respiratory 16 18 19 Rate Blood Pressure 160/78 161/79 161/79 O2 Sat by Pulse 100 100 100 Oximetry 10/12/16 10/12/16 10/12/16 23:10 23:12 23:20 Temperature Pulse Rate 103 H 102 H 100 H Respiratory 13 15 15 Rate Blood Pressure 161/79 161/79 146/74 O2 Sat by Pulse 100 100 100 Oximetry 10/12/16 10/12/16 10/12/16 23:30 23:41 23:51 Temperature Pulse Rate 91 H 104 H 101 H Respiratory 21 16 16 Rate Blood Pressure 146/74 140/77 O2 Sat by Pulse 100 100 100 Oximetry 10/13/16 10/13/16 10/13/16 00:00 00:11 00:21 Temperature 97.8 F Pulse Rate 107 H 106 H 108 H Respiratory 18 18 20 Rate Blood Pressure 136/79 136/79 134/72 O2 Sat by Pulse 100 100 100 Oximetry 10/13/16 10/13/16 10/13/16 00:30 00:41 00:51 Temperature Pulse Rate 115 H 105 H 103 H Respiratory 17 16 16 Rate Blood Pressure 124/70 124/70 137/73 O2 Sat by Pulse 100 100 100 Oximetry 10/13/16 10/13/16 10/13/16 01:00 01:11 01:21 Temperature Pulse Rate 104 H 95 H 100 H Respiratory 17 16 18 Rate Blood Pressure 130/69 130/69 145/70 O2 Sat by Pulse 100 100 100 Oximetry 10/13/16 10/13/16 10/13/16 01:30 01:41 01:51 Temperature Pulse Rate 88 95 H 95 H Respiratory 18 17 19 Rate Blood Pressure 134/67 134/67 138/69 O2 Sat by Pulse 100 100 100 Oximetry 10/13/16 10/13/16 10/13/16 02:00 02:11 02:21 Temperature Pulse Rate 101 H 96 H 102 H Respiratory 21 19 13 Rate Blood Pressure 136/69 136/69 136/69 O2 Sat by Pulse 100 100 100 Oximetry 10/13/16 10/13/16 10/13/16 02:30 02:41 02:51 Temperature Pulse Rate 97 H 92 H 95 H Respiratory 19 21 17 Rate Blood Pressure 130/67 130/67 130/67 O2 Sat by Pulse 100 100 100 Oximetry 10/13/16 10/13/16 10/13/16 03:00 03:11 03:21 Temperature Pulse Rate 96 H 98 H 100 H Respiratory 20 23 18 Rate Blood Pressure 138/69 138/69 138/69 O2 Sat by Pulse 100 100 100 Oximetry 10/13/16 10/13/16 10/13/16 03:30 03:41 03:51 Temperature Pulse Rate 96 H 93 H 98 H Respiratory 19 22 22 Rate Blood Pressure 144/66 144/66 144/66 O2 Sat by Pulse 100 100 100 Oximetry 10/13/16 10/13/16 10/13/16 03:59 04:00 04:05 Temperature 98.8 F 98.0 F Pulse Rate 93 H Respiratory 18 20 Rate Blood Pressure 138/67 O2 Sat by Pulse 100 Oximetry 10/13/16 10/13/16 10/13/16 04:11 04:21 04:31 Temperature Pulse Rate 95 H 93 H 107 H Respiratory 16 18 14 Rate Blood Pressure 138/67 138/67 135/76 O2 Sat by Pulse 100 100 Oximetry 10/13/16 10/13/16 10/13/16 04:41 04:51 05:00 Temperature Pulse Rate 92 H 93 H 93 H Respiratory 19 20 17 Rate Blood Pressure 135/76 135/76 150/75 O2 Sat by Pulse 100 100 100 Oximetry 10/13/16 10/13/16 10/13/16 05:11 05:21 05:30 Temperature Pulse Rate 93 H 92 H 99 H Respiratory 21 21 15 Rate Blood Pressure 150/75 150/75 145/77 O2 Sat by Pulse 100 100 100 Oximetry 03/12/2510/13/16 10/13/16 05:41 05:51 06:00 Temperature Pulse Rate 94 H 99 H 98 H Respiratory 21 20 21 Rate Blood Pressure 145/77 145/77 136/75 O2 Sat by Pulse 100 100 100 Oximetry 10/13/16 10/13/16 10/13/16 06:11 06:21 06:30 Temperature Pulse Rate 92 H 97 H 95 H Respiratory 20 18 19 Rate Blood Pressure 136/75 136/75 135/73 O2 Sat by Pulse 100 100 100 Oximetry 10/13/16 10/13/16 10/13/16 06:41 06:51 07:00 Temperature Pulse Rate 89 96 H 96 H Respiratory 20 18 20 Rate Blood Pressure 135/73 135/73 138/72 O2 Sat by Pulse 100 100 100 Oximetry 10/13/16 10/13/16 10/13/16 07:11 07:21 07:30 Temperature Pulse Rate 91 H 89 92 H Respiratory 19 20 20 Rate Blood Pressure 138/72 138/72 142/74 O2 Sat by Pulse 100 100 100 Oximetry 10/13/16 10/13/16 10/13/16 07:41 07:51 08:00 Temperature Pulse Rate 91 H 93 H 88 Respiratory 20 17 18 Rate Blood Pressure 142/74 142/74 136/70 O2 Sat by Pulse 100 100 100 Oximetry 10/13/16 08:38 Temperature Pulse Rate Respiratory Rate Blood Pressure O2 Sat by Pulse 100 Oximetry - General Appearance General appearance: well-developed, well-nourished EENT: other (periorbital ) Respiratory: Present: Decreased Breath Sounds Cardiology: regular, S1S2 Gastrointestinal: normal, no tenderness, no distended Integumentary: no rash Neurologic: alert and oriented x3 - Lab 10/12/16 22:43 10/12/16 21:13 Most recent lab results Calcium 7.6 mg/dL (8.4-10.2) L D 10/12/16 21:13
[2016-10-13] MEDS ORDERED: VANCOMYCIN/NS 1 GM/250 ML 1 GM/250 ML BAG IV ONE (12:00)
[2016-10-13] MEDS ORDERED: FLUARIX QUAD 2016-2017(36 MOS+) IM ONE (12:00)
--- NOTE | 2016-10-13 13:15 | Progress Note ---
Assessment and Plan 66 y/o female with toxic encephalopathy secondary to severe metabolic acidosis with elevated lactic acid and renal failure, possible from lack of HD vs, sepsis vs ischemia with shock, most likely related to profound acidemia and hyperkalemia. 1. Stat repeat CBC now. 2. Off all pressors, monitor BP 3. Stopped bicarb drip once ph was 7.5 on repeat ABG 4. Can stop serial lactic acids now that these are normal 5. No art Line is needed now. 6. HD tomorrow per renal 7. If repeat H/H is low, will transfuse at least 2 units of PRBC's 8. Can likely stop abx therapy. Subjective Date of service: 10/13/16 Interval history: Dialysis done on yesterday. Tolerated. Now off all pressors. Repeat H/H was low at 6.6. None drawn this am. Will repeat Stat. Patient more awake. Normal BP but still low for her as she suffers from hypertension. Objective - Constitutional Vitals: Vital Signs - 12hr 10/13/16 10/13/16 10/13/16 01:21 01:30 01:41 Temperature Pulse Rate 100 H 88 95 H Respiratory 18 18 17 Rate Blood Pressure 145/70 134/67 134/67 O2 Sat by Pulse 100 100 100 Oximetry 10/13/16 10/13/16 10/13/16 01:51 02:00 02:11 Temperature Pulse Rate 95 H 101 H 96 H Respiratory 19 21 19 Rate Blood Pressure 138/69 136/69 136/69 O2 Sat by Pulse 100 100 100 Oximetry 10/13/16 10/13/16 10/13/16 02:21 02:30 02:41 Temperature Pulse Rate 102 H 97 H 92 H Respiratory 13 19 21 Rate Blood Pressure 136/69 130/67 130/67 O2 Sat by Pulse 100 100 100 Oximetry 10/13/16 10/13/16 10/13/16 02:51 03:00 03:11 Temperature Pulse Rate 95 H 96 H 98 H Respiratory 17 20 23 Rate Blood Pressure 130/67 138/69 138/69 O2 Sat by Pulse 100 100 100 Oximetry 10/13/16 10/13/16 10/13/16 03:21 03:30 03:41 Temperature Pulse Rate 100 H 96 H 93 H Respiratory 18 19 22 Rate Blood Pressure 138/69 144/66 144/66 O2 Sat by Pulse 100 100 100 Oximetry 03/05/17 03/05/17 03/05/17 03:51 03:59 04:00 Temperature 98.8 F 98.0 F Pulse Rate 98 H 93 H Respiratory 22 18 Rate Blood Pressure 144/66 138/67 O2 Sat by Pulse 100 100 Oximetry 10/13/16 10/13/16 10/13/16 04:05 04:11 04:21 Temperature Pulse Rate 95 H 93 H Respiratory 20 16 18 Rate Blood Pressure 138/67 138/67 O2 Sat by Pulse 100 100 Oximetry 10/13/16 10/13/16 10/13/16 04:31 04:41 04:51 Temperature Pulse Rate 107 H 92 H 93 H Respiratory 14 19 20 Rate Blood Pressure 135/76 135/76 135/76 O2 Sat by Pulse 100 100 Oximetry 10/13/16 10/13/16 10/13/16 05:00 05:11 05:21 Temperature Pulse Rate 93 H 93 H 92 H Respiratory 17 21 21 Rate Blood Pressure 150/75 150/75 150/75 O2 Sat by Pulse 100 100 100 Oximetry 10/13/16 10/13/16 10/13/16 05:30 05:41 05:51 Temperature Pulse Rate 99 H 94 H 99 H Respiratory 15 21 20 Rate Blood Pressure 145/77 145/77 145/77 O2 Sat by Pulse 100 100 100 Oximetry 10/13/16 10/13/16 10/13/16 06:00 06:11 06:21 Temperature Pulse Rate 98 H 92 H 97 H Respiratory 21 20 18 Rate Blood Pressure 136/75 136/75 136/75 O2 Sat by Pulse 100 100 100 Oximetry 10/13/16 10/13/16 10/13/16 06:30 06:41 06:51 Temperature Pulse Rate 95 H 89 96 H Respiratory 19 20 18 Rate Blood Pressure 135/73 135/73 135/73 O2 Sat by Pulse 100 100 100 Oximetry 10/13/16 10/13/16 10/13/16 07:00 07:11 07:21 Temperature Pulse Rate 96 H 91 H 89 Respiratory 20 19 20 Rate Blood Pressure 138/72 138/72 138/72 O2 Sat by Pulse 100 100 100 Oximetry 10/13/16 10/13/16 10/13/16 07:30 07:41 07:51 Temperature Pulse Rate 92 H 91 H 93 H Respiratory 20 20 17 Rate Blood Pressure 142/74 142/74 142/74 O2 Sat by Pulse 100 100 100 Oximetry 10/13/16 10/13/16 10/13/16 08:00 08:11 08:21 Temperature 99.5 F Pulse Rate 88 88 84 Respiratory 18 16 20 Rate Blood Pressure 136/70 142/74 142/74 O2 Sat by Pulse 100 100 100 Oximetry 10/13/16 10/13/16 10/13/16 08:30 08:38 08:41 Temperature Pulse Rate 90 90 Respiratory 18 22 Rate Blood Pressure 142/73 136/70 O2 Sat by Pulse 100 100 98 Oximetry 10/13/16 10/13/16 10/13/16 08:51 09:00 09:11 Temperature Pulse Rate 91 H 89 93 H Respiratory 18 17 15 Rate Blood Pressure 136/70 139/75 139/75 O2 Sat by Pulse 100 100 100 Oximetry 10/13/16 10/13/16 10/13/16 09:20 09:30 09:41 Temperature Pulse Rate 88 104 H 90 Respiratory 19 14 17 Rate Blood Pressure 139/75 149/72 139/75 O2 Sat by Pulse 100 100 100 Oximetry 10/13/16 10/13/16 10/13/16 09:51 10:00 10:11 Temperature Pulse Rate 88 89 88 Respiratory 22 16 21 Rate Blood Pressure 139/75 139/69 149/72 O2 Sat by Pulse 100 100 100 Oximetry 10/13/16 10/13/16 10/13/16 10:21 10:30 10:41 Temperature Pulse Rate 88 94 H 98 H Respiratory 18 19 12 Rate Blood Pressure 149/72 134/70 134/70 O2 Sat by Pulse 100 100 100 Oximetry 10/13/16 10/13/16 10/13/16 10:51 11:00 11:15 Temperature Pulse Rate 93 H 92 H 89 Respiratory 19 18 18 Rate Blood Pressure 134/70 135/64 135/64 O2 Sat by Pulse 100 100 100 Oximetry 10/13/16 10/13/16 10/13/16 11:30 11:45 12:00 Temperature 98.9 F Pulse Rate 89 95 H 95 H Respiratory 20 23 15 Rate Blood Pressure 134/68 134/68 131/66 O2 Sat by Pulse 100 100 100 Oximetry - Labs CBC & Chem 7: 10/12/16 22:43 10/12/16 21:13 Labs: Abnormal lab results 10/12/16 10/12/16 10/12/16 Range/Units 06:39 06:45 12:24 Hgb (10.1-14.3) gm/dl Hct (30.3-42.9) % POC ABG pH (7.35-7.45) POC ABG pCO2 (35-45) POC ABG pO2 (80-105) Potassium (3.6-5.0) mmol/L Chloride (98-107) mmol/L Creatinine (0.7-1.2) mg/dL Glucose (65-100) mg/dL POC Glucose 378 H 365 H 256 H (70-105) Lactic Acid (0.7-2.0) mmol/L Calcium (8.4-10.2) mg/dL 10/12/16 10/12/16 10/12/16 Range/Units 14:06 17:18 19:08 Hgb (10.1-14.3) gm/dl Hct (30.3-42.9) % POC ABG pH (7.35-7.45) POC ABG pCO2 (35-45) POC ABG pO2 (80-105) Potassium (3.6-5.0) mmol/L Chloride (98-107) mmol/L Creatinine (0.7-1.2) mg/dL Glucose (65-100) mg/dL POC Glucose 279 H 281 H (70-105) Lactic Acid 4.1 H* (0.7-2.0) mmol/L Calcium (8.4-10.2) mg/dL 10/12/16 10/12/16 10/12/16 Range/Units 21:13 21:17 22:43 Hgb 6.6 L (10.1-14.3) gm/dl Hct 21.2 L D (30.3-42.9) % POC ABG pH 7.544 H (7.35-7.45) POC ABG pCO2 29.4 L (35-45) POC ABG pO2 110 H (80-105) Potassium 3.3 L D (3.6-5.0) mmol/L Chloride 94.4 L (98-107) mmol/L Creatinine 2.1 H D (0.7-1.2) mg/dL Glucose 222 H (65-100) mg/dL POC Glucose (70-105) Lactic Acid (0.7-2.0) mmol/L Calcium 7.6 L D (8.4-10.2) mg/dL 10/12/16 10/13/16 10/13/16 Range/Units 23:48 00:25 02:07 Hgb (10.1-14.3) gm/dl Hct (30.3-42.9) % POC ABG pH (7.35-7.45) POC ABG pCO2 (35-45) POC ABG pO2 (80-105) Potassium (3.6-5.0) mmol/L Chloride (98-107) mmol/L Creatinine (0.7-1.2) mg/dL Glucose (65-100) mg/dL POC Glucose 237 H 173 H (70-105) Lactic Acid 2.7 H* (0.7-2.0) mmol/L Calcium (8.4-10.2) mg/dL 10/13/16 10/13/16 10/13/16 Range/Units 04:21 09:46 11:59 Hgb (10.1-14.3) gm/dl Hct (30.3-42.9) % POC ABG pH (7.35-7.45) POC ABG pCO2 (35-45) POC ABG pO2 (80-105) Potassium (3.6-5.0) mmol/L Chloride (98-107) mmol/L Creatinine (0.7-1.2) mg/dL Glucose (65-100) mg/dL POC Glucose 177 H 195 H 177 H (70-105) Lactic Acid (0.7-2.0) mmol/L Calcium (8.4-10.2) mg/dL
--- NOTE | 2016-10-13 14:09 | Progress Note ---
Assessment and Plan 66-year-old female with end-stage renal disease and multiple metabolic abnormalities requiring urgent hemodialysis yesterday with improved metabolic labs today. Blood cultures have been negative. Patient is scheduled for dialysis tomorrow. Early this upcoming week, patient will require a PermCath exchange and subsequent femoral vascath removal. Subjective Date of service: 10/13/16 Interval history: Alert, non-combative, knows she is in a hospital, knows her name, does not know the year. Pressors have been weaned off. Metabolic panel improved. PH improved. Objective - Constitutional Vitals: Vital Signs - 12hr 10/13/16 10/13/16 10/13/16 02:11 02:21 02:30 Temperature Pulse Rate 96 H 102 H 97 H Respiratory 19 13 19 Rate Blood Pressure 136/69 136/69 130/67 O2 Sat by Pulse 100 100 100 Oximetry 10/13/16 10/13/16 10/13/16 02:41 02:51 03:00 Temperature Pulse Rate 92 H 95 H 96 H Respiratory 21 17 20 Rate Blood Pressure 130/67 130/67 138/69 O2 Sat by Pulse 100 100 100 Oximetry 10/13/16 10/13/16 10/13/16 03:11 03:21 03:30 Temperature Pulse Rate 98 H 100 H 96 H Respiratory 23 18 19 Rate Blood Pressure 138/69 138/69 144/66 O2 Sat by Pulse 100 100 100 Oximetry 10/13/16 10/13/16 10/13/16 03:41 03:51 03:59 Temperature 98.8 F Pulse Rate 93 H 98 H Respiratory 22 22 Rate Blood Pressure 144/66 144/66 O2 Sat by Pulse 100 100 Oximetry 10/13/16 10/13/16 10/13/16 04:00 04:05 04:11 Temperature 98.0 F Pulse Rate 93 H 95 H Respiratory 18 20 16 Rate Blood Pressure 138/67 138/67 O2 Sat by Pulse 100 100 Oximetry 10/13/16 10/13/16 10/13/16 04:21 04:31 04:41 Temperature Pulse Rate 93 H 107 H 92 H Respiratory 18 14 19 Rate Blood Pressure 138/67 135/76 135/76 O2 Sat by Pulse 100 100 Oximetry 10/13/16 10/13/16 10/13/16 04:51 05:00 05:11 Temperature Pulse Rate 93 H 93 H 93 H Respiratory 20 17 21 Rate Blood Pressure 135/76 150/75 150/75 O2 Sat by Pulse 100 100 100 Oximetry 10/13/16 10/13/16 10/13/16 05:21 05:30 05:41 Temperature Pulse Rate 92 H 99 H 94 H Respiratory 21 15 21 Rate Blood Pressure 150/75 145/77 145/77 O2 Sat by Pulse 100 100 100 Oximetry 10/13/16 10/13/16 10/13/16 05:51 06:00 06:11 Temperature Pulse Rate 99 H 98 H 92 H Respiratory 20 21 20 Rate Blood Pressure 145/77 136/75 136/75 O2 Sat by Pulse 100 100 100 Oximetry 10/13/16 10/13/16 10/13/16 06:21 06:30 06:41 Temperature Pulse Rate 97 H 95 H 89 Respiratory 18 19 20 Rate Blood Pressure 136/75 135/73 135/73 O2 Sat by Pulse 100 100 100 Oximetry 10/13/16 10/13/16 10/13/16 06:51 07:00 07:11 Temperature Pulse Rate 96 H 96 H 91 H Respiratory 18 20 19 Rate Blood Pressure 135/73 138/72 138/72 O2 Sat by Pulse 100 100 100 Oximetry 10/13/16 10/13/16 10/13/16 07:21 07:30 07:41 Temperature Pulse Rate 89 92 H 91 H Respiratory 20 20 20 Rate Blood Pressure 138/72 142/74 142/74 O2 Sat by Pulse 100 100 100 Oximetry 10/13/16 10/13/16 10/13/16 07:51 08:00 08:11 Temperature 99.5 F Pulse Rate 93 H 88 88 Respiratory 17 18 16 Rate Blood Pressure 142/74 136/70 142/74 O2 Sat by Pulse 100 100 100 Oximetry 10/13/16 10/13/16 10/13/16 08:21 08:30 08:38 Temperature Pulse Rate 84 90 Respiratory 20 18 Rate Blood Pressure 142/74 142/73 O2 Sat by Pulse 100 100 100 Oximetry 10/13/16 10/13/16 10/13/16 08:41 08:51 09:00 Temperature Pulse Rate 90 91 H 89 Respiratory 22 18 17 Rate Blood Pressure 136/70 136/70 139/75 O2 Sat by Pulse 98 100 100 Oximetry 10/13/16 10/13/16 10/13/16 09:11 09:20 09:30 Temperature Pulse Rate 93 H 88 104 H Respiratory 15 19 14 Rate Blood Pressure 139/75 139/75 149/72 O2 Sat by Pulse 100 100 100 Oximetry 10/13/16 10/13/16 10/13/16 09:41 09:51 10:00 Temperature Pulse Rate 90 88 89 Respiratory 17 22 16 Rate Blood Pressure 139/75 139/75 139/69 O2 Sat by Pulse 100 100 100 Oximetry 10/13/16 10/13/16 10/13/16 10:11 10:21 10:30 Temperature Pulse Rate 88 88 94 H Respiratory 21 18 19 Rate Blood Pressure 149/72 149/72 134/70 O2 Sat by Pulse 100 100 100 Oximetry 10/13/16 10/13/16 10/13/16 10:41 10:51 11:00 Temperature Pulse Rate 98 H 93 H 92 H Respiratory 12 19 18 Rate Blood Pressure 134/70 134/70 135/64 O2 Sat by Pulse 100 100 100 Oximetry 10/13/16 10/13/16 10/13/16 11:15 11:30 11:45 Temperature Pulse Rate 89 89 95 H Respiratory 18 20 23 Rate Blood Pressure 135/64 134/68 134/68 O2 Sat by Pulse 100 100 100 Oximetry 10/13/16 12:00 Temperature 98.9 F Pulse Rate 95 H Respiratory 15 Rate Blood Pressure 131/66 O2 Sat by Pulse 100 Oximetry General appearance: Present: no acute distress - EENT ENT: hearing intact Extremities: normal temperature, normal color - Psychiatric Psychiatric: no appropriate mood/affect, no memory intact, cooperative - Labs CBC & Chem 7: 10/12/16 22:43 10/12/16 21:13 Labs: Abnormal lab results 10/12/16 10/12/16 10/12/16 Range/Units 06:39 06:45 12:24 Hgb (10.1-14.3) gm/dl Hct (30.3-42.9) % POC ABG pH (7.35-7.45) POC ABG pCO2 (35-45) POC ABG pO2 (80-105) Potassium (3.6-5.0) mmol/L Chloride (98-107) mmol/L Creatinine (0.7-1.2) mg/dL Glucose (65-100) mg/dL POC Glucose 378 H 365 H 256 H (70-105) Lactic Acid (0.7-2.0) mmol/L Calcium (8.4-10.2) mg/dL 10/12/16 10/12/16 10/12/16 Range/Units 14:06 17:18 19:08 Hgb (10.1-14.3) gm/dl Hct (30.3-42.9) % POC ABG pH (7.35-7.45) POC ABG pCO2 (35-45) POC ABG pO2 (80-105) Potassium (3.6-5.0) mmol/L Chloride (98-107) mmol/L Creatinine (0.7-1.2) mg/dL Glucose (65-100) mg/dL POC Glucose 279 H 281 H (70-105) Lactic Acid 4.1 H* (0.7-2.0) mmol/L Calcium (8.4-10.2) mg/dL 10/12/16 10/12/16 10/12/16 Range/Units 21:13 21:17 22:43 Hgb 6.6 L (10.1-14.3) gm/dl Hct 21.2 L D (30.3-42.9) % POC ABG pH 7.544 H (7.35-7.45) POC ABG pCO2 29.4 L (35-45) POC ABG pO2 110 H (80-105) Potassium 3.3 L D (3.6-5.0) mmol/L Chloride 94.4 L (98-107) mmol/L Creatinine 2.1 H D (0.7-1.2) mg/dL Glucose 222 H (65-100) mg/dL POC Glucose (70-105) Lactic Acid (0.7-2.0) mmol/L Calcium 7.6 L D (8.4-10.2) mg/dL 10/12/16 10/13/16 10/13/16 Range/Units 23:48 00:25 02:07 Hgb (10.1-14.3) gm/dl Hct (30.3-42.9) % POC ABG pH (7.35-7.45) POC ABG pCO2 (35-45) POC ABG pO2 (80-105) Potassium (3.6-5.0) mmol/L Chloride (98-107) mmol/L Creatinine (0.7-1.2) mg/dL Glucose (65-100) mg/dL POC Glucose 237 H 173 H (70-105) Lactic Acid 2.7 H* (0.7-2.0) mmol/L Calcium (8.4-10.2) mg/dL 10/13/16 10/13/16 10/13/16 Range/Units 04:21 09:46 11:59 Hgb (10.1-14.3) gm/dl Hct (30.3-42.9) % POC ABG pH (7.35-7.45) POC ABG pCO2 (35-45) POC ABG pO2 (80-105) Potassium (3.6-5.0) mmol/L Chloride (98-107) mmol/L Creatinine (0.7-1.2) mg/dL Glucose (65-100) mg/dL POC Glucose 177 H 195 H 177 H (70-105) Lactic Acid (0.7-2.0) mmol/L Calcium (8.4-10.2) mg/dL
[2016-10-13 15:49] LABS: Hematocrit TNR % (30.3-42.9); Hemoglobin TNR gm/dl (10.1-14.3); Mean Corpuscular Volume TNR fl (79-97); Red Blood Count TNR M/mm3 (3.65-5.03)
[2016-10-13 15:51] LABS: Mean Corpuscular Hemoglobin TNR pg (28-32); White Blood Count TNR K/mm3 (4.5-11.0)
[2016-10-13 15:52] LABS: Mean Corpuscular HGB Conc TNR % (30-34); Mean Platelet Volume TNR fl (6-12); Platelet Count TNR K/mm3 (140-440); Red Cell Distribution Width TNR % (13.2-15.2)
--- NOTE | 2016-10-13 17:19 | Progress Note ---
Assessment and Plan Assessment and plan: 66-year-old woman with a history of end-stage renal disease who presented status post fall, she had been non compliant with HD and had a clotted permacath , she was found to be Confused and uremic 1. Uremia due to ESRD and Permacath malfunction -temporary femoral vasc cath placed 10/12, continue HD, nephrology input appreciated -WIll need exchange of clotted vasc cath prior to dc 2. Status post fall with trauma All trauma imaging have been negative for fracture, continue PT, continue pain management 3. Sepsis has been ruled out via neg urine, blood cultures and CXR and abx were dc 4. Hypotension was likely due to dehydration and anemia, pressors dc since 10/12. Has been normotensive since 5. Hypokalemia replete cautiously given ESRD 6. Anemia of chronic disease no evidence of acute blood loss, likely due to ESRD Transfuse 2 units PRBC Tentative transfer to floors in one to two days Critical care time 32 minutes History Interval history: mental status is much improved, she is now speaking and back to her baseline, she continues to ask when she can go home. at baseline, she is demented and minimally verbal and has poor insight. No events overnight, was weaned off pressors overnight Hospitalist Physical - Physical exam Narrative exam: General: appears well HEENT: Left eye contusion and bruising cardiac: S1-S2 heard lungs: clear to auscultation, abdomen: soft, nontender, nondistended bowel sounds positive extremities: no edema clubbing or cyanosis Skin: no rash or lesion Neuro: Demented, obeys commands, oriented to person, lacks insight. moves all extremities - Constitutional Vitals: Temp Pulse Resp BP Pulse Ox 99.9 F H 96 H 20 126/64 100 10/13/16 16:00 10/13/16 16:00 10/13/16 16:00 10/13/16 16:00 10/13/16 16:00 General appearance: Present: no acute distress Results - Labs CBC & Chem 7: 10/16/16 06:31 10/16/16 06:31 Labs: Laboratory Last Values WBC TNR 10/13/16 14:45 RBC TNR 10/13/16 14:45 Hgb TNR 10/13/16 14:45 Hct TNR 10/13/16 14:45 MCV TNR 10/13/16 14:45 MCH TNR 10/13/16 14:45 MCHC TNR 10/13/16 14:45 RDW TNR 10/13/16 14:45 Plt Count TNR 10/13/16 14:45 Add Manual Diff Complete 10/12/16 00:02 Total Counted 100 10/12/16 00:02 Seg Neutrophils % Head Miller 10/12/16 00:02 Seg Neuts % (Manual) 74.0 % (40.0-70.0) H 10/12/16 00:02 Band Neutrophils % 9.0 % 10/12/16 00:02 Lymphocytes % (Manual) 17.0 % (13.4-35.0) 10/12/16 00:02 Reactive Lymphs % (Man) 0 % 10/12/16 00:02 Monocytes % (Manual) 0 % (0.0-7.3) 10/12/16 00:02 Eosinophils % (Manual) 0 % (0.0-4.3) 10/12/16 00:02 Basophils % (Manual) 0 % (0.0-1.8) 10/12/16 00:02 Metamyelocytes % 0 % 10/12/16 00:02 Myelocytes % 0 % 10/12/16 00:02 Promyelocytes % 0 % 10/12/16 00:02 Blast Cells % 0 % 10/12/16 00:02 Nucleated RBC % Not Reportable 10/12/16 00:02 Seg Neutrophils # Man 12.9 K/mm3 (1.8-7.7) H 10/12/16 00:02 Band Neutrophils # 1.6 K/mm3 10/12/16 00:02 Lymphocytes # (Manual) 3.0 K/mm3 (1.2-5.4) 10/12/16 00:02 Abs React Lymphs (Man) 0.0 K/mm3 10/12/16 00:02 Monocytes # (Manual) 0.0 K/mm3 (0.0-0.8) 10/12/16 00:02 Eosinophils # (Manual) 0.0 K/mm3 (0.0-0.4) 10/12/16 00:02 Basophils # (Manual) 0.0 K/mm3 (0.0-0.1) 10/12/16 00:02 Metamyelocytes # 0.0 K/mm3 10/12/16 00:02 Myelocytes # 0.0 K/mm3 10/12/16 00:02 Promyelocytes # 0.0 K/mm3 10/12/16 00:02 Blast Cells # 0.0 K/mm3 10/12/16 00:02 WBC Morphology Not Reportable 10/12/16 00:02 Hypersegmented Neuts Not Reportable 10/12/16 00:02 Hyposegmented Neuts Not Reportable 10/12/16 00:02 Hypogranular Neuts Not Reportable 10/12/16 00:02 Smudge Cells Not Reportable 10/12/16 00:02 Toxic Granulation Not Reportable 10/12/16 00:02 Toxic Vacuolation Not Reportable 10/12/16 00:02 Dohle Bodies Not Reportable 10/12/16 00:02 Pelger-Huet Anomaly Not Reportable 10/12/16 00:02 Ladan Rods Not Reportable 10/12/16 00:02 Platelet Estimate Consistent w auto 10/12/16 00:02 Clumped Platelets Not Reportable 10/12/16 00:02 Plt Clumps, EDTA Not Reportable 10/12/16 00:02 Large Platelets Few 10/12/16 00:02 Giant Platelets Not Reportable 10/12/16 00:02 Platelet Satelliting Not Reportable 10/12/16 00:02 Plt Morphology Comment Not Reportable 10/12/16 00:02 RBC Morphology Not Reportable 10/12/16 00:02 Dimorphic RBCs Not Reportable 10/12/16 00:02 Polychromasia Not Reportable 10/12/16 00:02 Hypochromasia 1+ 10/12/16 00:02 Poikilocytosis Not Reportable 10/12/16 00:02 Anisocytosis 1+ 10/12/16 00:02 Microcytosis Not Reportable 10/12/16 00:02 Macrocytosis Not Reportable 10/12/16 00:02 Spherocytes Not Reportable 10/12/16 00:02 Pappenheimer Bodies Not Reportable 10/12/16 00:02 Sickle Cells Not Reportable 10/12/16 00:02 Target Cells Not Reportable 10/12/16 00:02 Tear Drop Cells Not Reportable 10/12/16 00:02 Ovalocytes Not Reportable 10/12/16 00:02 Helmet Cells Not Reportable 10/12/16 00:02 Montiel-Brisbin Bodies Not Reportable 10/12/16 00:02 Ferney Rings Not Reportable 10/12/16 00:02 Dalton Cells 1+ 10/12/16 00:02 Bite Cells Not Reportable 10/12/16 00:02 Crenated Cell Not Reportable 10/12/16 00:02 Elliptocytes Not Reportable 10/12/16 00:02 Acanthocytes (Spur) Not Reportable 10/12/16 00:02 Rouleaux Not Reportable 10/12/16 00:02 Hemoglobin C Crystals Not Reportable 10/12/16 00:02 Schistocytes Not Reportable 10/12/16 00:02 Malaria parasites Not Reportable 10/12/16 00:02 Jhony Bodies Not Reportable 10/12/16 00:02 Hem Pathologist Commnt No 10/12/16 00:02 POC ABG pH 7.544 (7.35-7.45) H 10/12/16 21:17 POC ABG pCO2 29.4 (35-45) L 10/12/16 21:17 POC ABG pO2 110 (80-105) H 10/12/16 21:17 POC ABG HCO3 25.4 10/12/16 21:17 POC ABG Total CO2 26 10/12/16 21:17 POC ABG O2 Sat 99 10/12/16 21:17 POC ABG Base Excess 3 10/12/16 21:17 VBG pH 6.953 (7.320-7.420) L* 10/12/16 06:45 FiO2 32 % 10/12/16 21:17 Sodium 140 mmol/L (137-145) 10/12/16 21:13 Potassium 3.3 mmol/L (3.6-5.0) L D 10/12/16 21:13 Chloride 94.4 mmol/L (98-107) L 10/12/16 21:13 Carbon Dioxide 26 mmol/L (22-30) D 10/12/16 21:13 Anion Gap 23 mmol/L 10/12/16 21:13 BUN 13 mg/dL (7-17) 10/12/16 21:13 Creatinine 2.1 mg/dL (0.7-1.2) H D 10/12/16 21:13 Estimated GFR 29 ml/min 10/12/16 21:13 BUN/Creatinine Ratio 6.19 % 10/12/16 21:13 Glucose 222 mg/dL (65-100) H 10/12/16 21:13 POC Glucose 145 (70-105) H 10/13/16 15:30 Lactic Acid 1.5 mmol/L (0.7-2.0) 10/13/16 06:15 Calcium 7.6 mg/dL (8.4-10.2) L D 10/12/16 21:13 Total Bilirubin 0.2 mg/dL (0.1-1.2) 10/12/16 08:05 AST 23 units/L (5-40) 10/12/16 08:05 ALT < 5 units/L (7-56) L 10/12/16 08:05 Alkaline Phosphatase 99 units/L (35-129) 10/12/16 08:05 Troponin T 0.087 ng/mL (0.00-0.029) H 10/12/16 00:02 Total Protein 6.4 g/dL (6.3-8.2) D 10/12/16 08:05 Albumin 2.7 g/dL (3.9-5) L 10/12/16 08:05 Albumin/Globulin Ratio 0.7 % 10/12/16 08:05 Triglycerides 132 mg/dL (2-149) 10/12/16 00:02 Cholesterol 135 mg/dL (50-199) 10/12/16 00:02 LDL Cholesterol Direct 68 mg/dL (50-130) 10/12/16 00:02 HDL Cholesterol 41 mg/dL (40-59) 10/12/16 00:02 Cholesterol/HDL Ratio 3.29 % 10/12/16 00:02 Lipase 214 units/L (13-60) H 10/12/16 00:02 Urine Color Yellow (Yellow) 10/11/16 00:10 Urine Turbidity Clear (Clear) 10/11/16 00:10 Urine pH 5.0 (5.0-7.0) 10/11/16 00:10 Ur Specific [place] 1.011 (1.003-1.030) 10/11/16 00:10 Urine Protein 100 mg/dl mg/dL (Negative) 10/11/16 00:10 Urine Glucose (UA) Neg mg/dL (Negative) 10/11/16 00:10 Urine Ketones Tr mg/dL (Negative) 10/11/16 00:10 Urine Blood Sm (Negative) 10/11/16 00:10 Urine Nitrite Neg (Negative) 10/11/16 00:10 Urine Bilirubin Neg (Negative) 10/11/16 00:10 Urine Urobilinogen < 2.0 mg/dL (<2.0) 10/11/16 00:10 Ur Leukocyte Esterase Neg (Negative) 10/11/16 00:10 Urine WBC (Auto) 1.0 /HPF (0.0-6.0) 10/11/16 00:10 Urine RBC (Auto) < 1.0 /HPF (0.0-6.0) 10/11/16 00:10 U Epithel Cells (Auto) 5.0 /HPF (0-13.0) 10/11/16 00:10 Amorphous Crystals 1+ 10/11/16 00:10 Blood Type O POSITIVE 10/13/16 07:51 Antibody Screen Negative 10/13/16 07:51
[2016-10-13 17:59] LABS: Basophils % (Auto) 0.2 % (0.0-1.8); Eosinophils % (Auto) 0.3 % (0.0-4.3); Mean Corpuscular HGB Conc 32 % (30-34); Mean Corpuscular Hemoglobin 28 pg (28-32); Mean Corpuscular Volume 88 fl (79-97); Platelet Count 146 K/mm3 (140-440); Red Blood Count 2.02 M/mm3 (3.65-5.03); Red Cell Distribution Width 14.5 % (13.2-15.2); White Blood Count 6.9 K/mm3 (4.5-11.0)
[2016-10-13 18:02] LABS: Hematocrit 17.8 % (30.3-42.9); Hemoglobin 5.7 gm/dl (10.1-14.3)
[2016-10-13 18:12] LABS: Albumin 2.4 g/dL (3.9-5); Albumin/Globulin Ratio 0.9 %; BUN/Creatinine Ratio 5.55; Bilirubin,Total 0.2 mg/dL (0.1-1.2); Calcium 7.1 mg/dL (8.4-10.2); Total Protein 5.2 g/dL (6.3-8.2)
[2016-10-13 18:21] LABS: Potassium 2.5 mmol/L (3.6-5.0)
[2016-10-13] MEDS ORDERED: NACL 0.9% 500 ML 500 ML IV ONE (18:23)
[2016-10-14] MEDS ORDERED: NACL 0.9% 500 ML 500 ML ONE (02:24)
[2016-10-14] MEDS: ZOSYN/NS 2.25 GM/50ML 2.25 GM/50 ML BAG IV SCH ×2 (05:02→13:00)
[2016-10-14] MEDS: PEPCID PO SCH (10:43)
[2016-10-14] MEDS ORDERED: NACL 0.9% 100 ML IV PRN (11:29)
--- NOTE | 2016-10-14 11:30 | Progress Note ---
Assessment and Plan Impression: * End stage renal disease * Severe metabolic acidosis - resolved * Malfunctioning permcath * Sepsis * Anemia secondary to ESRD Plan: * Stat BMP ordered for today * Hemodialysis MWF * Access management per vascular surgery - femoral vas cath inserted as HD need emergent * Abx per primary team * Await culture data - blood cx NGTD * Pressors prn maintain MAP>65 * Epogen for goal Hb 10-12 Subjective Date of service: 10/14/16 Objective - Vital Signs Vital signs: Vital Signs - 12hr 10/13/16 10/13/16 10/13/16 23:30 23:41 23:51 Temperature Pulse Rate 70 74 71 Respiratory 18 19 20 Rate Blood Pressure 132/78 132/78 132/78 O2 Sat by Pulse 100 100 100 Oximetry 10/14/16 10/14/16 10/14/16 00:00 00:11 00:21 Temperature Pulse Rate 81 80 68 Respiratory 17 21 20 Rate Blood Pressure 128/69 128/69 128/69 O2 Sat by Pulse 100 100 100 Oximetry 10/14/16 10/14/16 10/14/16 00:31 00:41 00:49 Temperature 98.4 F Pulse Rate 86 76 Respiratory 14 20 Rate Blood Pressure 138/72 138/72 O2 Sat by Pulse 100 100 Oximetry 10/14/16 10/14/16 10/14/16 00:51 01:00 01:11 Temperature Pulse Rate 74 82 79 Respiratory 20 16 13 Rate Blood Pressure 138/72 130/62 130/62 O2 Sat by Pulse 99 100 100 Oximetry 10/14/16 10/14/16 10/14/16 01:21 01:30 01:41 Temperature Pulse Rate 75 81 83 Respiratory 20 16 21 Rate Blood Pressure 130/62 126/61 126/61 O2 Sat by Pulse 100 100 100 Oximetry 10/14/16 10/14/16 10/14/16 01:50 02:00 02:11 Temperature Pulse Rate 73 75 82 Respiratory 20 22 16 Rate Blood Pressure 126/61 131/65 131/65 O2 Sat by Pulse 98 100 99 Oximetry 10/14/16 10/14/16 10/14/16 02:21 02:30 02:35 Temperature 98.6 F Pulse Rate 79 79 Respiratory 21 17 Rate Blood Pressure 131/65 131/60 O2 Sat by Pulse 99 99 Oximetry 10/14/16 10/14/16 10/14/16 02:45 02:55 03:00 Temperature 98.9 F Pulse Rate 80 Respiratory 15 Rate Blood Pressure 131/60 138/77 O2 Sat by Pulse 94 98 Oximetry 10/14/16 10/14/16 10/14/16 03:15 03:25 03:30 Temperature 98.7 F Pulse Rate 70 77 Respiratory 15 21 Rate Blood Pressure 131/60 145/71 O2 Sat by Pulse 97 99 Oximetry 10/14/16 10/14/16 10/14/16 03:45 03:55 04:00 Temperature 98.3 F Pulse Rate 78 78 Respiratory 16 19 Rate Blood Pressure 145/71 132/71 O2 Sat by Pulse 98 98 Oximetry 10/14/16 10/14/16 10/14/16 04:15 04:30 04:43 Temperature 98.4 F Pulse Rate 71 70 Respiratory 16 17 Rate Blood Pressure 132/71 141/70 O2 Sat by Pulse 97 99 Oximetry 10/14/16 10/14/16 10/14/16 04:55 05:00 05:25 Temperature 98.3 F 98.7 F Pulse Rate 76 Respiratory 13 Rate Blood Pressure 139/71 O2 Sat by Pulse 98 Oximetry 10/14/16 10/14/16 10/14/16 05:30 05:40 05:45 Temperature 98.7 F Pulse Rate 76 90 Respiratory 13 22 Rate Blood Pressure 137/80 137/80 O2 Sat by Pulse 99 96 Oximetry 10/14/16 10/14/16 10/14/16 06:01 06:05 06:15 Temperature 98.6 F Pulse Rate 65 76 Respiratory 18 18 Rate Blood Pressure 136/69 136/69 O2 Sat by Pulse 98 97 Oximetry 10/14/16 10/14/16 10/14/16 06:31 06:45 07:01 Temperature Pulse Rate 76 78 69 Respiratory 22 23 16 Rate Blood Pressure 146/68 136/69 141/66 O2 Sat by Pulse 98 100 100 Oximetry 10/14/16 10/14/16 10/14/16 07:30 07:31 08:00 Temperature 98 F 98.4 F Pulse Rate 72 66 74 Respiratory 16 15 17 Rate Blood Pressure 146/83 146/83 163/76 O2 Sat by Pulse 100 100 100 Oximetry 10/14/16 10/14/16 10/14/16 08:01 08:30 08:31 Temperature 98.4 F Pulse Rate 70 72 90 Respiratory 25 H 20 23 Rate Blood Pressure 163/76 158/97 158/97 O2 Sat by Pulse 100 100 100 Oximetry 10/14/16 10/14/16 10/14/16 08:34 09:00 09:01 Temperature 98.2 F Pulse Rate 67 68 Respiratory 18 16 Rate Blood Pressure 153/102 153/102 O2 Sat by Pulse 100 100 100 Oximetry 10/14/16 10/14/16 10/14/16 09:30 09:31 10:00 Temperature 98.4 F 98.3 F Pulse Rate 64 67 62 Respiratory 20 12 22 Rate Blood Pressure 154/112 154/112 152/77 O2 Sat by Pulse 100 100 100 Oximetry 10/14/16 10/14/16 10/14/16 10:01 10:20 10:31 Temperature 98.2 F Pulse Rate 62 61 63 Respiratory 21 21 22 Rate Blood Pressure 152/77 151/76 154/74 O2 Sat by Pulse 100 100 100 Oximetry 10/14/16 11:01 Temperature Pulse Rate 76 Respiratory 15 Rate Blood Pressure 156/76 O2 Sat by Pulse 100 Oximetry - Lab 10/13/16 17:45 10/13/16 17:45 Most recent lab results Calcium 7.1 mg/dL (8.4-10.2) L 10/13/16 17:45
[2016-10-14 11:39] LABS: Hematocrit 25.9 % (30.3-42.9); Hemoglobin 8.5 gm/dl (10.1-14.3); Mean Corpuscular HGB Conc 33 % (30-34); Mean Corpuscular Hemoglobin 29 pg (28-32); Mean Corpuscular Volume 88 fl (79-97); Platelet Count 123 K/mm3 (140-440); Red Blood Count 2.96 M/mm3 (3.65-5.03); White Blood Count 7.8 K/mm3 (4.5-11.0)
[2016-10-14 11:58] LABS: BUN/Creatinine Ratio 5.86; Calcium 7.2 mg/dL (8.4-10.2); Chloride 100.2 mmol/L (98-107)
[2016-10-14 12:08] LABS: Potassium 2.4 mmol/L (3.6-5.0)
[2016-10-14] MEDS: KCL 10MEQ/100ML 10 MEQ/100 ML BAG IV SCH ×2 (12:53→14:11)
--- NOTE | 2016-10-14 14:48 | Progress Note ---
Assessment and Plan Imp: 1. Hypoglycemia 2. Malfunctioned PC, missed HD 3. ESRD 4. HAGMA/lactic acidosis 2/2 above 5. Hypotension/SIRS 2/2 above; no clear evidence of infection/sepsis 6. Acute respiratory failure Rec: 1. HD per renal 2. K repletion 3. Advance diet to clear liquids 4. Off pressors 5. Stop ABX given negative cultures, CXR, and UA 6. Would try to mobilize, and consider transfer to floor Plan of care reviewed w/ patient, she understands/agrees Subjective Date of service: 10/14/16 Principal diagnosis: SIRS Interval history: No events. BP better off pressors. Awake, alert. Reports mild abdominal pain but wants to eat. States she is hungry. Denies N/V. No other complaints. Active Medications Famotidine (Pepcid) 20 mg PO DAILY GUANACO Last Admin: 10/14/16 10:43 Dose: 20 mg Heparin Sodium (Porcine) (Heparin) 5,000 unit IV ANDRES PRN PRN Reason: hemodialysis Last Admin: 10/12/16 19:59 Dose: 5,000 unit Norepinephrine (Levophed Drip 4 Mg/Ns 250 Ml) 4 mg in 250 mls @ 18.75 mls/hr IV TITR GUANACO; 5 MCG/MIN PRN Reason: Protocol Last Admin: 10/12/16 13:49 Dose: 8 mcg/min, 30 mls/hr Vasopressin 20 unit/ Sodium (Chloride) 101 mls @ 12.12 mls/hr IV TITR GUANACO; 0.04 UNITS/MIN PRN Reason: Protocol Last Admin: 10/13/16 03:37 Dose: 0.04 units/min, 12.12 mls/hr Sodium Chloride (Nacl 0.9%) 100 mls @ 999 mls/hr IV ANDRES PRN PRN Reason: Hypotension Sodium Chloride (Nacl 0.9%) 100 mls @ 999 mls/hr IV ANDRES PRN PRN Reason: Hypotension Potassium Chloride (Kcl 10meq/100ml) 10 meq in 100 mls @ 100 mls/hr IV Q1H GUANACO Stop: 10/14/16 14:59 Last Admin: 10/14/16 14:11 Dose: 100 mls/hr Objective Vital Signs - 12hr 10/14/16 10/14/16 10/14/16 02:45 02:55 03:00 Temperature 98.9 F Pulse Rate 80 Pulse Rate [ From Monitor] Respiratory 15 Rate Blood Pressure 131/60 138/77 O2 Sat by Pulse 94 98 Oximetry 10/14/16 10/14/16 10/14/16 03:15 03:25 03:30 Temperature 98.7 F Pulse Rate 70 77 Pulse Rate [ From Monitor] Respiratory 15 21 Rate Blood Pressure 131/60 145/71 O2 Sat by Pulse 97 99 Oximetry 10/14/16 10/14/16 10/14/16 03:45 03:55 04:00 Temperature 98.3 F Pulse Rate 78 78 Pulse Rate [ From Monitor] Respiratory 16 19 Rate Blood Pressure 145/71 132/71 O2 Sat by Pulse 98 98 Oximetry 10/14/16 10/14/16 10/14/16 04:15 04:30 04:43 Temperature 98.4 F Pulse Rate 71 70 Pulse Rate [ From Monitor] Respiratory 16 17 Rate Blood Pressure 132/71 141/70 O2 Sat by Pulse 97 99 Oximetry 10/14/16 10/14/16 10/14/16 04:55 05:00 05:25 Temperature 98.3 F 98.7 F Pulse Rate 76 Pulse Rate [ From Monitor] Respiratory 13 Rate Blood Pressure 139/71 O2 Sat by Pulse 98 Oximetry 10/14/16 10/14/16 10/14/16 05:30 05:40 05:45 Temperature 98.7 F Pulse Rate 76 90 Pulse Rate [ From Monitor] Respiratory 13 22 Rate Blood Pressure 137/80 137/80 O2 Sat by Pulse 99 96 Oximetry 10/14/16 10/14/16 10/14/16 06:01 06:05 06:15 Temperature 98.6 F Pulse Rate 65 76 Pulse Rate [ From Monitor] Respiratory 18 18 Rate Blood Pressure 136/69 136/69 O2 Sat by Pulse 98 97 Oximetry 10/14/16 10/14/16 10/14/16 06:31 06:45 07:01 Temperature Pulse Rate 76 78 69 Pulse Rate [ From Monitor] Respiratory 22 23 16 Rate Blood Pressure 146/68 136/69 141/66 O2 Sat by Pulse 98 100 100 Oximetry 10/14/16 10/14/16 10/14/16 07:30 07:31 08:00 Temperature 98 F 98.4 F Pulse Rate 72 66 74 Pulse Rate [ 76 From Monitor] Respiratory 16 15 18 Rate Blood Pressure 146/83 146/83 163/76 O2 Sat by Pulse 100 100 100 Oximetry 10/14/16 10/14/16 10/14/16 08:01 08:30 08:31 Temperature 98.4 F Pulse Rate 70 72 90 Pulse Rate [ From Monitor] Respiratory 25 H 20 23 Rate Blood Pressure 163/76 158/97 158/97 O2 Sat by Pulse 100 100 100 Oximetry 10/14/16 10/14/16 10/14/16 08:34 09:00 09:01 Temperature 98.2 F Pulse Rate 67 68 Pulse Rate [ From Monitor] Respiratory 18 16 Rate Blood Pressure 153/102 153/102 O2 Sat by Pulse 100 100 100 Oximetry 10/14/16 10/14/16 10/14/16 09:30 09:31 10:00 Temperature 98.4 F 98.3 F Pulse Rate 64 67 62 Pulse Rate [ From Monitor] Respiratory 20 12 22 Rate Blood Pressure 154/112 154/112 152/77 O2 Sat by Pulse 100 100 100 Oximetry 10/14/16 10/14/16 10/14/16 10:01 10:20 10:31 Temperature 98.2 F Pulse Rate 62 61 63 Pulse Rate [ From Monitor] Respiratory 21 21 22 Rate Blood Pressure 152/77 151/76 154/74 O2 Sat by Pulse 100 100 100 Oximetry 10/14/16 10/14/16 10/14/16 11:01 11:31 12:00 Temperature 97.9 F Pulse Rate 76 61 Pulse Rate [ 78 From Monitor] Respiratory 15 22 16 Rate Blood Pressure 156/76 154/78 O2 Sat by Pulse 100 100 100 Oximetry 10/14/16 10/14/16 10/14/16 12:01 12:31 13:01 Temperature Pulse Rate 66 64 63 Pulse Rate [ From Monitor] Respiratory 23 19 21 Rate Blood Pressure 153/88 151/79 153/78 O2 Sat by Pulse 100 100 100 Oximetry 10/14/16 10/14/16 13:31 14:01 Temperature Pulse Rate 65 62 Pulse Rate [ From Monitor] Respiratory 23 18 Rate Blood Pressure 153/78 153/78 O2 Sat by Pulse 97 100 Oximetry Constitutional: no acute distress, alert Eyes: non-icteric ENT: oropharynx moist Neck: supple Effort: normal Ascultation: Bilateral: clear Cardiovascular: regular rate and rhythm (no mrg) Gastrointestinal: normoactive bowel sounds, soft, non-tender, non-distended Integumentary: normal Extremities: no cyanosis, no edema, pink and warm Neurologic: normal mental status, non-focal exam, pupils equal and round, CN II- XII normal Psychiatric: mood appropriate, affect normal CBC and BMP: 10/14/16 11:20 10/14/16 11:20 ABG, PT/INR, D-dimer: ABG POC ABG pH 7.544 (7.35-7.45) H 10/12/16 21:17 POC ABG pCO2 29.4 (35-45) L 10/12/16 21: POC ABG pO2 110 (80-105) H 10/12/16 21: POC ABG HCO3 25.4 10/12/16 21: POC ABG Total CO2 26 10/12/16 21: POC ABG O2 Sat 99 10/12/16 21:17 Abnormal lab findings: Abnormal Labs 10/12/16 10/12/16 10/12/16 06:39 06:45 06:45 RBC Hgb Hct Plt Count Lymph % (Auto) Lymph # Seg Neutrophils % POC ABG pH POC ABG pCO2 POC ABG pO2 VBG pH 6.953 L* Potassium Chloride Carbon Dioxide BUN Creatinine Glucose POC Glucose 378 H 365 H Lactic Acid Calcium AST ALT Total Protein Albumin Crossmatch 10/12/16 10/12/16 10/12/16 07:51 08:05 08:05 RBC Hgb Hct Plt Count Lymph % (Auto) Lymph # Seg Neutrophils % POC ABG pH POC ABG pCO2 POC ABG pO2 VBG pH Potassium 6.0 H Chloride 81.9 L Carbon Dioxide 3 L* BUN 52 H Creatinine 8.6 H Glucose 320 H POC Glucose 298 H Lactic Acid 22.7 H* Calcium AST ALT < 5 L Total Protein Albumin 2.7 L Crossmatch 10/12/16 10/12/16 10/12/16 08:42 11:13 12:24 RBC Hgb Hct Plt Count Lymph % (Auto) Lymph # Seg Neutrophils % POC ABG pH 7.080 L POC ABG pCO2 13.8 L POC ABG pO2 155 H VBG pH Potassium Chloride Carbon Dioxide BUN Creatinine Glucose POC Glucose 281 H 256 H Lactic Acid Calcium AST ALT Total Protein Albumin Crossmatch 10/12/16 10/12/16 10/12/16 14:06 17:18 19:08 RBC Hgb Hct Plt Count Lymph % (Auto) Lymph # Seg Neutrophils % POC ABG pH POC ABG pCO2 POC ABG pO2 VBG pH Potassium Chloride Carbon Dioxide BUN Creatinine Glucose POC Glucose 279 H 281 H Lactic Acid 4.1 H* Calcium AST ALT Total Protein Albumin Crossmatch 10/12/16 10/12/16 10/12/16 21:13 21:17 22:43 RBC Hgb 6.6 L Hct 21.2 L D Plt Count Lymph % (Auto) Lymph # Seg Neutrophils % POC ABG pH 7.544 H POC ABG pCO2 29.4 L POC ABG pO2 110 H VBG pH Potassium 3.3 L D Chloride 94.4 L Carbon Dioxide BUN Creatinine 2.1 H D Glucose 222 H POC Glucose Lactic Acid Calcium 7.6 L D AST ALT Total Protein Albumin Crossmatch 10/12/16 10/13/16 10/13/16 23:48 00:25 02:07 RBC Hgb Hct Plt Count Lymph % (Auto) Lymph # Seg Neutrophils % POC ABG pH POC ABG pCO2 POC ABG pO2 VBG pH Potassium Chloride Carbon Dioxide BUN Creatinine Glucose POC Glucose 237 H 173 H Lactic Acid 2.7 H* Calcium AST ALT Total Protein Albumin Crossmatch 10/13/16 10/13/16 10/13/16 04:21 07:51 09:46 RBC Hgb Hct Plt Count Lymph % (Auto) Lymph # Seg Neutrophils % POC ABG pH POC ABG pCO2 POC ABG pO2 VBG pH Potassium Chloride Carbon Dioxide BUN Creatinine Glucose POC Glucose 177 H 195 H Lactic Acid Calcium AST ALT Total Protein Albumin Crossmatch See Detail 10/13/16 10/13/16 10/13/16 11:59 15:30 17:45 RBC 2.02 L Hgb 5.7 L* Hct 17.8 L* Plt Count Lymph % (Auto) 4.6 L Lymph # 0.3 L Seg Neutrophils % 87.6 H POC ABG pH POC ABG pCO2 POC ABG pO2 VBG pH Potassium Chloride Carbon Dioxide BUN Creatinine Glucose POC Glucose 177 H 145 H Lactic Acid Calcium AST ALT Total Protein Albumin Crossmatch 10/13/16 10/13/16 10/14/16 17:45 21:57 06:07 RBC Hgb Hct Plt Count Lymph % (Auto) Lymph # Seg Neutrophils % POC ABG pH POC ABG pCO2 POC ABG pO2 VBG pH Potassium 2.5 L* D Chloride 96.0 L Carbon Dioxide BUN 20 H Creatinine 3.6 H D Glucose 132 H POC Glucose 142 H 112 H Lactic Acid Calcium 7.1 L AST 43 H ALT 5 L Total Protein 5.2 L Albumin 2.4 L Crossmatch 10/14/16 10/14/16 10/14/16 11:20 11:20 14:02 RBC 2.96 L Hgb 8.5 L Hct 25.9 L D Plt Count 123 L Lymph % (Auto) Lymph # Seg Neutrophils % POC ABG pH POC ABG pCO2 POC ABG pO2 VBG pH Potassium 2.4 L* Chloride Carbon Dioxide BUN 27 H Creatinine 4.6 H Glucose 105 H POC Glucose 122 H Lactic Acid Calcium 7.2 L AST ALT Total Protein Albumin Crossmatch Chest x-ray: report reviewed, image reviewed (negative)
--- NOTE | 2016-10-14 17:09 | Progress Note ---
Assessment and Plan Assessment and plan: 66-year-old woman with a history of end-stage renal disease who presented status post fall, she had been non compliant with HD and had a clotted permacath , she was found to be Confused and uremic 1. Uremia due to ESRD and Permacath malfunction -temporary femoral vasc cath placed 10/12, continue HD, nephrology input appreciated -WIll need exchange of clotted vasc cath prior to dc 2. Status post fall with trauma All trauma imaging have been negative for fracture, continue PT, continue pain management 3. Sepsis has been ruled out via neg urine, blood cultures and CXR and abx were dc 4. Hypotension was likely due to dehydration and anemia, pressors dc since 10/12. Has been normotensive since, Received IVF and blood transfusion 5. Hypokalemia replete cautiously given ESRD 6. Anemia of chronic disease no evidence of acute blood loss, likely due to ESRD sp 2 units PRBC, with improvement of Hg Tentative transfer to floors in 24 hours if continues to improve Dispo: family wants her to go to Rehab, needs exchange of clotted vasc cath first. History Interval history: mental status is much improved, she is now speaking and back to her baseline, she continues to ask when she can go home. at baseline, she is demented and minimally verbal and has poor insight. No events overnight, Hospitalist Physical - Physical exam Narrative exam: General: appears well HEENT: Left eye contusion and bruising cardiac: S1-S2 heard lungs: clear to auscultation, abdomen: soft, nontender, nondistended bowel sounds positive extremities: no edema clubbing or cyanosis Skin: no rash or lesion Neuro: Demented, obeys commands, oriented to person, lacks insight. moves all extremities - Constitutional Vitals: Temp Pulse Resp BP Pulse Ox 98.1 F 71 15 140/76 100 10/14/16 16:00 10/14/16 16:01 10/14/16 16:01 10/14/16 16:01 10/14/16 16:01 General appearance: Present: no acute distress Results - Labs CBC & Chem 7: 10/16/16 06:31 10/16/16 06:31 Labs: Laboratory Last Values WBC 7.8 K/mm3 (4.5-11.0) 10/14/16 11:20 RBC 2.96 M/mm3 (3.65-5.03) L 10/14/16 11:20 Hgb 8.5 gm/dl (10.1-14.3) L 10/14/16 11:20 Hct 25.9 % (30.3-42.9) L D 10/14/16 11:20 MCV 88 fl (79-97) 10/14/16 11:20 MCH 29 pg (28-32) 10/14/16 11:20 MCHC 33 % (30-34) 10/14/16 11:20 RDW 14.0 % (13.2-15.2) 10/14/16 11:20 Plt Count 123 K/mm3 (140-440) L 10/14/16 11:20 Lymph % (Auto) 4.6 % (13.4-35.0) L 10/13/16 17:45 [place] % (Auto) 7.3 % (0.0-7.3) 10/13/16 17:45 Eos % (Auto) 0.3 % (0.0-4.3) 10/13/16 17:45 Baso % (Auto) 0.2 % (0.0-1.8) 10/13/16 17:45 Lymph # 0.3 K/mm3 (1.2-5.4) L 10/13/16 17:45 [place] # 0.5 K/mm3 (0.0-0.8) 10/13/16 17:45 Eos # 0.0 K/mm3 (0.0-0.4) 10/13/16 17:45 Baso # 0.0 K/mm3 (0.0-0.1) 10/13/16 17:45 Add Manual Diff Complete 10/12/16 00:02 Total Counted 100 10/12/16 00:02 Seg Neutrophils % 87.6 % (40.0-70.0) H 10/13/16 17:45 Seg Neuts % (Manual) 74.0 % (40.0-70.0) H 10/12/16 00:02 Band Neutrophils % 9.0 % 10/12/16 00:02 Lymphocytes % (Manual) 17.0 % (13.4-35.0) 10/12/16 00:02 Reactive Lymphs % (Man) 0 % 10/12/16 00:02 Monocytes % (Manual) 0 % (0.0-7.3) 10/12/16 00:02 Eosinophils % (Manual) 0 % (0.0-4.3) 10/12/16 00:02 Basophils % (Manual) 0 % (0.0-1.8) 10/12/16 00:02 Metamyelocytes % 0 % 10/12/16 00:02 Myelocytes % 0 % 10/12/16 00:02 Promyelocytes % 0 % 10/12/16 00:02 Blast Cells % 0 % 10/12/16 00:02 Nucleated RBC % Not Reportable 10/12/16 00:02 Seg Neutrophils # 6.0 K/mm3 (1.8-7.7) 10/13/16 17:45 Seg Neutrophils # Man 12.9 K/mm3 (1.8-7.7) H 10/12/16 00:02 Band Neutrophils # 1.6 K/mm3 10/12/16 00:02 Lymphocytes # (Manual) 3.0 K/mm3 (1.2-5.4) 10/12/16 00:02 Abs React Lymphs (Man) 0.0 K/mm3 10/12/16 00:02 Monocytes # (Manual) 0.0 K/mm3 (0.0-0.8) 10/12/16 00:02 Eosinophils # (Manual) 0.0 K/mm3 (0.0-0.4) 10/12/16 00:02 Basophils # (Manual) 0.0 K/mm3 (0.0-0.1) 10/12/16 00:02 Metamyelocytes # 0.0 K/mm3 10/12/16 00:02 Myelocytes # 0.0 K/mm3 10/12/16 00:02 Promyelocytes # 0.0 K/mm3 10/12/16 00:02 Blast Cells # 0.0 K/mm3 10/12/16 00:02 WBC Morphology Not Reportable 10/12/16 00:02 Hypersegmented Neuts Not Reportable 10/12/16 00:02 Hyposegmented Neuts Not Reportable 10/12/16 00:02 Hypogranular Neuts Not Reportable 10/12/16 00:02 Smudge Cells Not Reportable 10/12/16 00:02 Toxic Granulation Not Reportable 10/12/16 00:02 Toxic Vacuolation Not Reportable 10/12/16 00:02 Dohle Bodies Not Reportable 10/12/16 00:02 Pelger-Huet Anomaly Not Reportable 10/12/16 00:02 Ladan Rods Not Reportable 10/12/16 00:02 Platelet Estimate Consistent w auto 10/12/16 00:02 Clumped Platelets Not Reportable 10/12/16 00:02 Plt Clumps, EDTA Not Reportable 10/12/16 00:02 Large Platelets Few 10/12/16 00:02 Giant Platelets Not Reportable 10/12/16 00:02 Platelet Satelliting Not Reportable 10/12/16 00:02 Plt Morphology Comment Not Reportable 10/12/16 00:02 RBC Morphology Not Reportable 10/12/16 00:02 Dimorphic RBCs Not Reportable 10/12/16 00:02 Polychromasia Not Reportable 10/12/16 00:02 Hypochromasia 1+ 10/12/16 00:02 Poikilocytosis Not Reportable 10/12/16 00:02 Anisocytosis 1+ 10/12/16 00:02 Microcytosis Not Reportable 10/12/16 00:02 Macrocytosis Not Reportable 10/12/16 00:02 Spherocytes Not Reportable 10/12/16 00:02 Pappenheimer Bodies Not Reportable 10/12/16 00:02 Sickle Cells Not Reportable 10/12/16 00:02 Target Cells Not Reportable 10/12/16 00:02 Tear Drop Cells Not Reportable 10/12/16 00:02 Ovalocytes Not Reportable 10/12/16 00:02 Helmet Cells Not Reportable 10/12/16 00:02 [place] Bodies Not Reportable 10/12/16 00:02 [place] Rings Not Reportable 10/12/16 00:02 Dalton Cells 1+ 10/12/16 00:02 Bite Cells Not Reportable 10/12/16 00:02 Crenated Cell Not Reportable 10/12/16 00:02 Elliptocytes Not Reportable 10/12/16 00:02 Acanthocytes (Spur) Not Reportable 10/12/16 00:02 Rouleaux Not Reportable 10/12/16 00:02 Hemoglobin C Crystals Not Reportable 10/12/16 00:02 Schistocytes Not Reportable 10/12/16 00:02 Malaria parasites Not Reportable 10/12/16 00:02 Jhony Bodies Not Reportable 10/12/16 00:02 Hem Pathologist Commnt No 10/12/16 00:02 POC ABG pH 7.544 (7.35-7.45) H 10/12/16 21:17 POC ABG pCO2 29.4 (35-45) L 10/12/16 21: POC ABG pO2 110 (80-105) H 10/12/16 21:17 POC ABG HCO3 25.4 10/12/16 21:17 POC ABG Total CO2 26 10/12/16 21:17 POC ABG O2 Sat 99 10/12/16 21: POC ABG Base Excess 3 10/12/16 21:17 VBG pH 6.953 (7.320-7.420) L* 10/12/16 06:45 FiO2 32 % 10/12/16 21:17 Sodium 144 mmol/L (137-145) 10/14/16 11:20 Potassium 2.4 mmol/L (3.6-5.0) L* 10/14/16 11:20 Chloride 100.2 mmol/L (98-107) 10/14/16 11:20 Carbon Dioxide 30 mmol/L (22-30) 10/14/16 11:20 Anion Gap 16 mmol/L 10/14/16 11:20 BUN 27 mg/dL (7-17) H 10/14/16 11:20 Creatinine 4.6 mg/dL (0.7-1.2) H 10/14/16 11:20 Estimated GFR 12 ml/min 10/14/16 11:20 BUN/Creatinine Ratio 5.86 % 10/14/16 11:20 Glucose 105 mg/dL (65-100) H 10/14/16 11:20 POC Glucose 122 (70-105) H 10/14/16 14:02 Lactic Acid 1.1 mmol/L (0.7-2.0) 10/14/16 11:20 Calcium 7.2 mg/dL (8.4-10.2) L 10/14/16 11:20 Total Bilirubin 0.2 mg/dL (0.1-1.2) 10/13/16 17:45 AST 43 units/L (5-40) H 10/13/16 17:45 ALT 5 units/L (7-56) L 10/13/16 17:45 Alkaline Phosphatase 66 units/L (35-129) 10/13/16 17:45 Troponin T 0.087 ng/mL (0.00-0.029) H 10/12/16 00:02 Total Protein 5.2 g/dL (6.3-8.2) L 10/13/16 17:45 Albumin 2.4 g/dL (3.9-5) L 10/13/16 17:45 Albumin/Globulin Ratio 0.9 % 10/13/16 17:45 Triglycerides 132 mg/dL (2-149) 10/12/16 00:02 Cholesterol 135 mg/dL (50-199) 10/12/16 00:02 LDL Cholesterol Direct 68 mg/dL (50-130) 10/12/16 00:02 HDL Cholesterol 41 mg/dL (40-59) 10/12/16 00:02 Cholesterol/HDL Ratio 3.29 % 10/12/16 00:02 Lipase 214 units/L (13-60) H 10/12/16 00:02 Urine Color Yellow (Yellow) 10/11/16 00:10 Urine Turbidity Clear (Clear) 10/11/16 00:10 Urine pH 5.0 (5.0-7.0) 10/11/16 00:10 Ur Specific [place] 1.011 (1.003-1.030) 10/11/16 00:10 Urine Protein 100 mg/dl mg/dL (Negative) 10/11/16 00:10 Urine Glucose (UA) Neg mg/dL (Negative) 10/11/16 00:10 Urine Ketones Tr mg/dL (Negative) 10/11/16 00:10 Urine Blood Sm (Negative) 10/11/16 00:10 Urine Nitrite Neg (Negative) 10/11/16 00:10 Urine Bilirubin Neg (Negative) 10/11/16 00:10 Urine Urobilinogen < 2.0 mg/dL (<2.0) 10/11/16 00:10 Ur Leukocyte Esterase Neg (Negative) 10/11/16 00:10 Urine WBC (Auto) 1.0 /HPF (0.0-6.0) 10/11/16 00:10 Urine RBC (Auto) < 1.0 /HPF (0.0-6.0) 10/11/16 00:10 U Epithel Cells (Auto) 5.0 /HPF (0-13.0) 10/11/16 00:10 Amorphous Crystals 1+ 10/11/16 00:10 Blood Type O POSITIVE 10/13/16 07:51 Antibody Screen Negative 10/13/16 07:51 Crossmatch See Detail 10/13/16 07:51
[2016-10-14] MEDS ORDERED: NACL 0.9 (PRIMING MACHINE ONLY DIALYSIS) MC ONE (22:10)
[2016-10-14] MEDS: HEPARIN IV PRN (22:31)
--- NOTE | 2016-10-15 08:57 | Discharge Summary ---
Providers - Providers Date of Admission: 10/12/16 05:39 Attending physician: SANDEEP NULL MD 10/12/16 05:54 Consult to Physician [CONS] Routine Consulting Provider: LINDA CLINE Reason For Exam: intensive care Place consult to:: Dr. Cline Notified:: no 10/12/16 10:22 Consult to Physician [CONS] Routine Consulting Provider: SONIA WILEY Reason For Exam: esrd Place consult to:: nena hull. neph Notified:: as Phone number called:: [phone] Was contact made?: Yes If yes, spoke with:: patience Time called:: 10:28 10/12/16 10:23 Consult to Physician [CONS] Routine Consulting Provider: NOEL CARRILLO Reason For Exam: Vas cath dysfunction Place consult to:: francois vas. Notified:: as Phone number called:: [phone] Was contact made?: Yes If yes, spoke with:: marlin Time called:: 10:32 Primary care physician: KATHRYN GALLOWAY Hospitalization Condition: Stable Hospital course: 66-year-old woman with a history of end-stage renal disease who presented status post fall, found to have hyporthermia, sepsis, and permacath malfunction. She was found to have metabolic acidosis due to missed dialysis sessions, temporary dialysis catheter was immediately placed and patient was started on dialysis, shortly after which she clinically improved. Of note sepsis was ruled out, chest x-ray and cultures were all negative. She did have sitters which was most likely due to severe metabolic acidosis and accumulation of toxins that could not be renally excreted. She was initially hypotensive, for which she received antibiotics and pressors for very short period of time, however as soon as sepsis was ruled out, all antibiotics were discontinued. She was later found to be hypertensive and restarted on her blood pressure medications, also she had a flare for acute gallops for which she was treated with colchicine and steroids and pain medications. With regards to recent fall , trauma imaging was done under all negative for any fractures. She was seen by physical therapy who noted that she is quite unsafe with walking and transferring and as per patient's request she is being transferred to a rehabilitation facility. Clotted cath was exchanged and she's to continue hemodialysis as per her schedule. Discharge diagnoses 1. Uremia 2. End-stage renal disease 3. dialysis catheter malfunction 4. Acute flare of gout Disposition: DC/TX SNF [facility] Time spent for discharge: 35 minutes Core Measure Documentation - Palliative Care Palliative Care/ Comfort Measures: Not Applicable - Core Measures Any of the following diagnoses?: none Exam - Physical Exam Narrative exam: General: appears well HEENT: MMM cardiac: S1-S2 heard lungs: clear to auscultation, abdomen: soft, nontender, nondistended bowel sounds positive extremities: mild right wrist edema and tenderness Skin: no rash or lesion Neuro: moves all extremities, obeys commands, demented - Constitutional Vitals: Temp Pulse Resp BP Pulse Ox 98.1 F 78 20 162/97 98 10/14/16 23:20 10/14/16 23:20 10/14/16 23:20 10/14/16 23:20 10/15/16 00:00 Plan Follow up with: PRIMARY CARE, [Referring] - 3-5 Days Prescriptions: HYDROcodone/APAP 5-325 [Crum 5/325] 1 each PO Q4HR PRN #6 tablet PRN Reason: Pain predniSONE [Deltasone] 20 mg PO QDAY #5 tab traMADol [Ultram 50 MG tab] 50 mg PO Q6HR PRN #10 tablet PRN Reason: Pain
[2016-10-15] MEDS: PEPCID PO SCH (10:29)
--- NOTE | 2016-10-15 12:18 | Progress Note ---
Assessment and Plan Imp: 1. Hypoglycemia 2. Malfunctioned PC, missed HD 3. ESRD 4. HAGMA/lactic acidosis 2/2 above 5. Hypotension/SIRS 2/2 above; no clear evidence of infection/sepsis 6. Acute respiratory failure, better Rec: 1. HD per renal 2. K repletion; would recheck level 3. Advance to renal diet 4. Stopped ABX given negative cultures, CXR, and UA 5. Would try to mobilize 6. Patient needs permcath exchange and vascath removal prior to d/c; see previous vascular notes Plan of care reviewed w/ patient, she understands/agrees; no family present Subjective Date of service: 10/15/16 Principal diagnosis: SIRS Interval history: No events. BP stable. Awake, alert. Tolerating clear liquids. No current complaints. Active Medications Famotidine (Pepcid) 20 mg PO DAILY GUANACO Last Admin: 10/15/16 10:29 Dose: 20 mg Heparin Sodium (Porcine) (Heparin) 5,000 unit IV ANDRES PRN PRN Reason: hemodialysis Last Admin: 10/14/16 22:31 Dose: 5,000 unit Sodium Chloride (Nacl 0.9%) 100 mls @ 999 mls/hr IV ANDRES PRN PRN Reason: Hypotension Sodium Chloride (Nacl 0.9%) 100 mls @ 999 mls/hr IV ANDRES PRN PRN Reason: Hypotension Objective Vital Signs - 12hr 10/15/16 10/15/16 09:44 11:30 Temperature 98.5 F Pulse Rate [ 72 From Monitor] Respiratory 18 Rate Blood Pressure 144/98 [Left Arm] O2 Sat by Pulse 95 95 Oximetry Constitutional: no acute distress, alert Eyes: non-icteric ENT: oropharynx moist Neck: supple Effort: normal Ascultation: Bilateral: clear Cardiovascular: regular rate and rhythm (no mrg) Gastrointestinal: normoactive bowel sounds, soft, non-tender, non-distended Integumentary: normal Extremities: no cyanosis, no edema, pink and warm Neurologic: normal mental status, non-focal exam, pupils equal and round, CN II- XII normal Psychiatric: mood appropriate, affect normal CBC and BMP: 10/14/16 11:20 10/14/16 11:20 ABG, PT/INR, D-dimer: ABG POC ABG pH 7.544 (7.35-7.45) H 10/12/16 21:17 POC ABG pCO2 29.4 (35-45) L 10/12/16 21:17 POC ABG pO2 110 (80-105) H 10/12/16 21:17 POC ABG HCO3 25.4 10/12/16 21:17 POC ABG Total CO2 26 10/12/16 21:17 POC ABG O2 Sat 99 10/12/16 21:17 Abnormal lab findings: Abnormal Labs 10/12/16 10/12/16 10/12/16 06:39 06:45 06:45 RBC Hgb Hct Plt Count Lymph % (Auto) Lymph # Seg Neutrophils % POC ABG pH POC ABG pCO2 POC ABG pO2 VBG pH 6.953 L* Potassium Chloride Carbon Dioxide BUN Creatinine Glucose POC Glucose 378 H 365 H Lactic Acid Calcium AST ALT Total Protein Albumin Crossmatch 10/12/16 10/12/16 10/12/16 07:51 08:05 08:05 RBC Hgb Hct Plt Count Lymph % (Auto) Lymph # Seg Neutrophils % POC ABG pH POC ABG pCO2 POC ABG pO2 VBG pH Potassium 6.0 H Chloride 81.9 L Carbon Dioxide 3 L* BUN 52 H Creatinine 8.6 H Glucose 320 H POC Glucose 298 H Lactic Acid 22.7 H* Calcium AST ALT < 5 L Total Protein Albumin 2.7 L Crossmatch 10/12/16 10/12/16 10/12/16 08:42 11:13 12:24 RBC Hgb Hct Plt Count Lymph % (Auto) Lymph # Seg Neutrophils % POC ABG pH 7.080 L POC ABG pCO2 13.8 L POC ABG pO2 155 H VBG pH Potassium Chloride Carbon Dioxide BUN Creatinine Glucose POC Glucose 281 H 256 H Lactic Acid Calcium AST ALT Total Protein Albumin Crossmatch 10/12/16 10/12/16 10/12/16 14:06 17:18 19:08 RBC Hgb Hct Plt Count Lymph % (Auto) Lymph # Seg Neutrophils % POC ABG pH POC ABG pCO2 POC ABG pO2 VBG pH Potassium Chloride Carbon Dioxide BUN Creatinine Glucose POC Glucose 279 H 281 H Lactic Acid 4.1 H* Calcium AST ALT Total Protein Albumin Crossmatch 10/12/16 10/12/16 10/12/16 21:13 21:17 22:43 RBC Hgb 6.6 L Hct 21.2 L D Plt Count Lymph % (Auto) Lymph # Seg Neutrophils % POC ABG pH 7.544 H POC ABG pCO2 29.4 L POC ABG pO2 110 H VBG pH Potassium 3.3 L D Chloride 94.4 L Carbon Dioxide BUN Creatinine 2.1 H D Glucose 222 H POC Glucose Lactic Acid Calcium 7.6 L D AST ALT Total Protein Albumin Crossmatch 10/12/16 10/13/16 10/13/16 23:48 00:25 02:07 RBC Hgb Hct Plt Count Lymph % (Auto) Lymph # Seg Neutrophils % POC ABG pH POC ABG pCO2 POC ABG pO2 VBG pH Potassium Chloride Carbon Dioxide BUN Creatinine Glucose POC Glucose 237 H 173 H Lactic Acid 2.7 H* Calcium AST ALT Total Protein Albumin Crossmatch 10/13/16 10/13/16 10/13/16 04:21 07:51 09:46 RBC Hgb Hct Plt Count Lymph % (Auto) Lymph # Seg Neutrophils % POC ABG pH POC ABG pCO2 POC ABG pO2 VBG pH Potassium Chloride Carbon Dioxide BUN Creatinine Glucose POC Glucose 177 H 195 H Lactic Acid Calcium AST ALT Total Protein Albumin Crossmatch See Detail 10/13/16 10/13/16 10/13/16 11:59 15:30 17:45 RBC 2.02 L Hgb 5.7 L* Hct 17.8 L* Plt Count Lymph % (Auto) 4.6 L Lymph # 0.3 L Seg Neutrophils % 87.6 H POC ABG pH POC ABG pCO2 POC ABG pO2 VBG pH Potassium Chloride Carbon Dioxide BUN Creatinine Glucose POC Glucose 177 H 145 H Lactic Acid Calcium AST ALT Total Protein Albumin Crossmatch 10/13/16 10/13/16 10/14/16 17:45 21:57 06:07 RBC Hgb Hct Plt Count Lymph % (Auto) Lymph # Seg Neutrophils % POC ABG pH POC ABG pCO2 POC ABG pO2 VBG pH Potassium 2.5 L* D Chloride 96.0 L Carbon Dioxide BUN 20 H Creatinine 3.6 H D Glucose 132 H POC Glucose 142 H 112 H Lactic Acid Calcium 7.1 L AST 43 H ALT 5 L Total Protein 5.2 L Albumin 2.4 L Crossmatch 10/14/16 10/14/16 10/14/16 11:20 11:20 14:02 RBC 2.96 L Hgb 8.5 L Hct 25.9 L D Plt Count 123 L Lymph % (Auto) Lymph # Seg Neutrophils % POC ABG pH POC ABG pCO2 POC ABG pO2 VBG pH Potassium 2.4 L* Chloride Carbon Dioxide BUN 27 H Creatinine 4.6 H Glucose 105 H POC Glucose 122 H Lactic Acid Calcium 7.2 L AST ALT Total Protein Albumin Crossmatch 10/14/16 10/15/16 10/15/16 18:15 03:06 03:48 RBC Hgb Hct Plt Count Lymph % (Auto) Lymph # Seg Neutrophils % POC ABG pH POC ABG pCO2 POC ABG pO2 VBG pH Potassium Chloride Carbon Dioxide BUN Creatinine Glucose POC Glucose 137 H 121 H 124 H Lactic Acid Calcium AST ALT Total Protein Albumin Crossmatch 10/15/16 06:47 RBC Hgb Hct Plt Count Lymph % (Auto) Lymph # Seg Neutrophils % POC ABG pH POC ABG pCO2 POC ABG pO2 VBG pH Potassium Chloride Carbon Dioxide BUN Creatinine Glucose POC Glucose 112 H Lactic Acid Calcium AST ALT Total Protein Albumin Crossmatch Chest x-ray: report reviewed, image reviewed
--- NOTE | 2016-10-15 12:25 | Progress Note ---
Assessment and Plan Impression: * End stage renal disease on HD MWF * Severe metabolic acidosis - resolved * Malfunctioning IJ permcath * Sepsis * Anemia secondary to ESRD Plan: * Hemodialysis MWF * Access management per vascular surgery - femoral vas cath inserted as HD need emergent; needs permcath exchange prior to d/c * Abx per primary team * Await culture data - blood cx NGTD * Pressors prn maintain MAP>65 * Epogen for goal Hb 10-12 Subjective Date of service: 10/15/16 Principal diagnosis: SIRS Interval history: Patient has no complaints. Objective - Vital Signs Vital signs: Vital Signs - 12hr 10/15/16 10/15/16 09:44 11:30 Temperature 98.5 F Pulse Rate [ 72 From Monitor] Respiratory 18 Rate Blood Pressure 144/98 [Left Arm] O2 Sat by Pulse 95 95 Oximetry - General Appearance General appearance: well-developed, well-nourished Respiratory: Present: Clear to Ascultation Cardiology: regular, S1S2 Gastrointestinal: normal, no tenderness, no distended Integumentary: no rash Neurologic: no focal deficit Musculoskeletal: other (no edema) Psychiatric: cooperative - Lab 10/16/16 06:31 10/16/16 06:31 Most recent lab results Calcium 7.2 mg/dL (8.4-10.2) L 10/14/16 11:20
--- NOTE | 2016-10-15 15:30 | Progress Note ---
Assessment and Plan Assessment and plan: 66-year-old woman with a history of end-stage renal disease who presented status post fall, she had been non compliant with HD and had a clotted permacath , she was found to be Confused and uremic 1. Uremia due to ESRD and Permacath malfunction -temporary femoral vasc cath placed 10/12, continue HD, nephrology input appreciated -WIll need exchange of clotted vasc cath prior to dc 2. Status post fall with trauma All trauma imaging have been negative for fracture, continue PT, continue pain management 3. Sepsis has been ruled out via neg urine, blood cultures and CXR and abx were dc 4. Hypotension was likely due to dehydration and anemia, pressors dc since 10/12. Has been normotensive since, Received IVF and blood transfusion 5. Hypokalemia replete cautiously given ESRD 6. Anemia of chronic disease no evidence of acute blood loss, likely due to ESRD sp 2 units PRBC, with improvement of Hg Tentative transfer to floors in 24 hours if continues to improve Dispo: family wants her to go to Rehab, needs exchange of clotted vasc cath first. History Interval history: mental status is much improved, she is now speaking and back to her baseline, she continues to ask when she can go home. at baseline, she is demented and minimally verbal and has poor insight. No events overnight, Hospitalist Physical - Physical exam Narrative exam: General: appears well HEENT: Left eye contusion and bruising cardiac: S1-S2 heard lungs: clear to auscultation, abdomen: soft, nontender, nondistended bowel sounds positive extremities: no edema clubbing or cyanosis Skin: no rash or lesion Neuro: Demented, obeys commands, oriented to person, lacks insight. moves all extremities - Constitutional Vitals: Temp Pulse Resp BP Pulse Ox 98.5 F 72 18 144/98 95 10/15/16 09:44 10/15/16 09:44 10/15/16 09:44 10/15/16 09:44 10/15/16 11:30 General appearance: Present: no acute distress Results - Labs CBC & Chem 7: 10/16/16 06:31 10/16/16 06:31 Labs: Laboratory Last Values WBC 7.8 K/mm3 (4.5-11.0) 10/14/16 11:20 RBC 2.96 M/mm3 (3.65-5.03) L 10/14/16 11:20 Hgb 8.5 gm/dl (10.1-14.3) L 10/14/16 11:20 Hct 25.9 % (30.3-42.9) L D 10/14/16 11:20 MCV 88 fl (79-97) 10/14/16 11:20 MCH 29 pg (28-32) 10/14/16 11:20 MCHC 33 % (30-34) 10/14/16 11:20 RDW 14.0 % (13.2-15.2) 10/14/16 11:20 Plt Count 123 K/mm3 (140-440) L 10/14/16 11:20 Lymph % (Auto) 4.6 % (13.4-35.0) L 10/13/16 17:45 [place] % (Auto) 7.3 % (0.0-7.3) 10/13/16 17:45 Eos % (Auto) 0.3 % (0.0-4.3) 10/13/16 17:45 Baso % (Auto) 0.2 % (0.0-1.8) 10/13/16 17:45 Lymph # 0.3 K/mm3 (1.2-5.4) L 10/13/16 17:45 [place] # 0.5 K/mm3 (0.0-0.8) 10/13/16 17:45 Eos # 0.0 K/mm3 (0.0-0.4) 10/13/16 17:45 Baso # 0.0 K/mm3 (0.0-0.1) 10/13/16 17:45 Add Manual Diff Complete 10/12/16 00:02 Total Counted 100 10/12/16 00:02 Seg Neutrophils % 87.6 % (40.0-70.0) H 10/13/16 17:45 Seg Neuts % (Manual) 74.0 % (40.0-70.0) H 10/12/16 00:02 Band Neutrophils % 9.0 % 10/12/16 00:02 Lymphocytes % (Manual) 17.0 % (13.4-35.0) 10/12/16 00:02 Reactive Lymphs % (Man) 0 % 10/12/16 00:02 Monocytes % (Manual) 0 % (0.0-7.3) 10/12/16 00:02 Eosinophils % (Manual) 0 % (0.0-4.3) 10/12/16 00:02 Basophils % (Manual) 0 % (0.0-1.8) 10/12/16 00:02 Metamyelocytes % 0 % 10/12/16 00:02 Myelocytes % 0 % 10/12/16 00:02 Promyelocytes % 0 % 10/12/16 00:02 Blast Cells % 0 % 10/12/16 00:02 Nucleated RBC % Not Reportable 10/12/16 00:02 Seg Neutrophils # 6.0 K/mm3 (1.8-7.7) 10/13/16 17:45 Seg Neutrophils # Man 12.9 K/mm3 (1.8-7.7) H 10/12/16 00:02 Band Neutrophils # 1.6 K/mm3 10/12/16 00:02 Lymphocytes # (Manual) 3.0 K/mm3 (1.2-5.4) 10/12/16 00:02 Abs React Lymphs (Man) 0.0 K/mm3 10/12/16 00:02 Monocytes # (Manual) 0.0 K/mm3 (0.0-0.8) 10/12/16 00:02 Eosinophils # (Manual) 0.0 K/mm3 (0.0-0.4) 10/12/16 00:02 Basophils # (Manual) 0.0 K/mm3 (0.0-0.1) 10/12/16 00:02 Metamyelocytes # 0.0 K/mm3 10/12/16 00:02 Myelocytes # 0.0 K/mm3 10/12/16 00:02 Promyelocytes # 0.0 K/mm3 10/12/16 00:02 Blast Cells # 0.0 K/mm3 10/12/16 00:02 WBC Morphology Not Reportable 10/12/16 00:02 Hypersegmented Neuts Not Reportable 10/12/16 00:02 Hyposegmented Neuts Not Reportable 10/12/16 00:02 Hypogranular Neuts Not Reportable 10/12/16 00:02 Smudge Cells Not Reportable 10/12/16 00:02 Toxic Granulation Not Reportable 10/12/16 00:02 Toxic Vacuolation Not Reportable 10/12/16 00:02 Dohle Bodies Not Reportable 10/12/16 00:02 Pelger-Huet Anomaly Not Reportable 10/12/16 00:02 Ladan Rods Not Reportable 10/12/16 00:02 Platelet Estimate Consistent w auto 10/12/16 00:02 Clumped Platelets Not Reportable 10/12/16 00:02 Plt Clumps, EDTA Not Reportable 10/12/16 00:02 Large Platelets Few 10/12/16 00:02 Giant Platelets Not Reportable 10/12/16 00:02 Platelet Satelliting Not Reportable 10/12/16 00:02 Plt Morphology Comment Not Reportable 10/12/16 00:02 RBC Morphology Not Reportable 10/12/16 00:02 Dimorphic RBCs Not Reportable 10/12/16 00:02 Polychromasia Not Reportable 10/12/16 00:02 Hypochromasia 1+ 10/12/16 00:02 Poikilocytosis Not Reportable 10/12/16 00:02 Anisocytosis 1+ 10/12/16 00:02 Microcytosis Not Reportable 10/12/16 00:02 Macrocytosis Not Reportable 10/12/16 00:02 Spherocytes Not Reportable 10/12/16 00:02 Pappenheimer Bodies Not Reportable 10/12/16 00:02 Sickle Cells Not Reportable 10/12/16 00:02 Target Cells Not Reportable 10/12/16 00:02 Tear Drop Cells Not Reportable 10/12/16 00:02 Ovalocytes Not Reportable 10/12/16 00:02 Helmet Cells Not Reportable 10/12/16 00:02 [place] Bodies Not Reportable 10/12/16 00:02 [place] Rings Not Reportable 10/12/16 00:02 [place] Cells 1+ 10/12/16 00:02 Bite Cells Not Reportable 10/12/16 00:02 Crenated Cell Not Reportable 10/12/16 00:02 Elliptocytes Not Reportable 10/12/16 00:02 Acanthocytes (Spur) Not Reportable 10/12/16 00:02 Rouleaux Not Reportable 10/12/16 00:02 Hemoglobin C Crystals Not Reportable 10/12/16 00:02 Schistocytes Not Reportable 10/12/16 00:02 Malaria parasites Not Reportable 10/12/16 00:02 Jhony Bodies Not Reportable 10/12/16 00:02 Hem Pathologist Commnt No 10/12/16 00:02 POC ABG pH 7.544 (7.35-7.45) H 10/12/16 21:17 POC ABG pCO2 29.4 (35-45) L 10/12/16 21: POC ABG pO2 110 (80-105) H 10/12/16 21:17 POC ABG HCO3 25.4 10/12/16 21:17 POC ABG Total CO2 26 10/12/16 21: POC ABG O2 Sat 99 10/12/16 21: POC ABG Base Excess 3 10/12/16 21:17 VBG pH 6.953 (7.320-7.420) L* 10/12/16 06:45 FiO2 32 % 10/12/16 21:17 Sodium 144 mmol/L (137-145) 10/14/16 11:20 Potassium 2.4 mmol/L (3.6-5.0) L* 10/14/16 11:20 Chloride 100.2 mmol/L (98-107) 10/14/16 11:20 Carbon Dioxide 30 mmol/L (22-30) 10/14/16 11:20 Anion Gap 16 mmol/L 10/14/16 11:20 BUN 27 mg/dL (7-17) H 10/14/16 11:20 Creatinine 4.6 mg/dL (0.7-1.2) H 10/14/16 11:20 Estimated GFR 12 ml/min 10/14/16 11:20 BUN/Creatinine Ratio 5.86 % 10/14/16 11:20 Glucose 105 mg/dL (65-100) H 10/14/16 11:20 POC Glucose 112 (70-105) H 10/15/16 06:47 Lactic Acid 1.1 mmol/L (0.7-2.0) 10/14/16 11:20 Calcium 7.2 mg/dL (8.4-10.2) L 10/14/16 11:20 Total Bilirubin 0.2 mg/dL (0.1-1.2) 10/13/16 17:45 AST 43 units/L (5-40) H 10/13/16 17:45 ALT 5 units/L (7-56) L 10/13/16 17:45 Alkaline Phosphatase 66 units/L (35-129) 10/13/16 17:45 Troponin T 0.087 ng/mL (0.00-0.029) H 10/12/16 00:02 Total Protein 5.2 g/dL (6.3-8.2) L 10/13/16 17:45 Albumin 2.4 g/dL (3.9-5) L 10/13/16 17:45 Albumin/Globulin Ratio 0.9 % 10/13/16 17:45 Triglycerides 132 mg/dL (2-149) 10/12/16 00:02 Cholesterol 135 mg/dL (50-199) 10/12/16 00:02 LDL Cholesterol Direct 68 mg/dL (50-130) 10/12/16 00:02 HDL Cholesterol 41 mg/dL (40-59) 10/12/16 00:02 Cholesterol/HDL Ratio 3.29 % 10/12/16 00:02 Lipase 214 units/L (13-60) H 10/12/16 00:02 Urine Color Yellow (Yellow) 10/11/16 00:10 Urine Turbidity Clear (Clear) 10/11/16 00:10 Urine pH 5.0 (5.0-7.0) 10/11/16 00:10 Ur Specific [place] 1.011 (1.003-1.030) 10/11/16 00:10 Urine Protein 100 mg/dl mg/dL (Negative) 10/11/16 00:10 Urine Glucose (UA) Neg mg/dL (Negative) 10/11/16 00:10 Urine Ketones Tr mg/dL (Negative) 10/11/16 00:10 Urine Blood Sm (Negative) 10/11/16 00:10 Urine Nitrite Neg (Negative) 10/11/16 00:10 Urine Bilirubin Neg (Negative) 10/11/16 00:10 Urine Urobilinogen < 2.0 mg/dL (<2.0) 10/11/16 00:10 Ur Leukocyte Esterase Neg (Negative) 10/11/16 00:10 Urine WBC (Auto) 1.0 /HPF (0.0-6.0) 10/11/16 00:10 Urine RBC (Auto) < 1.0 /HPF (0.0-6.0) 10/11/16 00:10 U Epithel Cells (Auto) 5.0 /HPF (0-13.0) 10/11/16 00:10 Amorphous Crystals 1+ 10/11/16 00:10 Blood Type O POSITIVE 10/13/16 07:51 Antibody Screen Negative 10/13/16 07:51 Crossmatch See Detail 10/13/16 07:51
[2016-10-15] MEDS ORDERED: K-DUR PO ONE (23:05)
[2016-10-16] MEDS ORDERED: ANCEF/STERILE WATER 2 GM/20 ML IV NR (06:00)
[2016-10-16 06:59] LABS: Hematocrit 27.1 % (30.3-42.9); Mean Corpuscular HGB Conc 33 % (30-34); Mean Corpuscular Hemoglobin 29 pg (28-32); Mean Corpuscular Volume 87 fl (79-97); Platelet Count 130 K/mm3 (140-440); Red Blood Count 3.13 M/mm3 (3.65-5.03); White Blood Count 12.6 K/mm3 (4.5-11.0)
[2016-10-16 07:19] LABS: BUN/Creatinine Ratio 6.21; Calcium 7.1 mg/dL (8.4-10.2); Chloride 96.3 mmol/L (98-107)
[2016-10-16 07:21] LABS: Potassium 2.4 mmol/L (3.6-5.0)
[2016-10-16] MEDS ORDERED: K-DUR PO ONE (08:00)
[2016-10-16] MEDS ORDERED: KCL 40 MEQ in NACL 0.9% 500 ML 500 ML IV SCH (08:00)
[2016-10-16 08:15] LABS: Basophils % (Manual) 0 % (0.0-1.8); Blastocytes % (Manual) 0 %; Eosinophils % (Manual) 0 % (0.0-4.3)
[2016-10-16 08:16] LABS: Anisocytosis 1+; Stomatocytes Few
[2016-10-16 08:17] LABS: Diff Status Complete; Platelet Estimate Consistent w Auto
[2016-10-16] MEDS: PEPCID PO SCH (10:13)
--- NOTE | 2016-10-16 10:58 | Progress Note ---
Assessment and Plan Impression: * End stage renal disease on HD MWF * Severe metabolic acidosis - resolved * Malfunctioning IJ permcath * Sepsis * Anemia secondary to ESRD Plan: * Hemodialysis MWF; UF as tolerated * Access management per vascular surgery; needs permcath exchange prior to d/c - blood cx negative x 4 days * Abx per primary team * Renal diet * Epogen for goal Hb 10-12 Subjective Date of service: 10/16/16 Principal diagnosis: SIRS Interval history: Patient seen on HD without complaint. Objective - Vital Signs Vital signs: Vital Signs - 12hr 10/15/16 10/16/16 10/16/16 23:00 04:00 08:30 Temperature 99.3 F 98.3 F Pulse Rate [ 80 70 From Monitor] Pulse Rate [ 70 Right Radial] Respiratory 16 16 20 Rate Blood Pressure 167/77 145/72 156/75 [Left Arm] O2 Sat by Pulse 100 98 Oximetry 10/16/16 08:43 Temperature Pulse Rate [ From Monitor] Pulse Rate [ Right Radial] Respiratory Rate Blood Pressure [Left Arm] O2 Sat by Pulse 100 Oximetry - General Appearance General appearance: well-developed, well-nourished EENT: other (left eye w/ periorbital ecchymosis) Respiratory: Present: Clear to Ascultation Cardiology: regular, S1S2 Gastrointestinal: normal, no tenderness, no distended Integumentary: no rash Musculoskeletal: other (no edema) Psychiatric: cooperative - Lab 10/16/16 06:31 10/16/16 06:31 Most recent lab results Calcium 7.1 mg/dL (8.4-10.2) L 10/16/16 06:31
[2016-10-16] MEDS ORDERED: NACL 0.9% 1000 ML 2,000 ML ONE (11:29)
[2016-10-16] MEDS ORDERED: KCL 40 MEQ in NACL 0.9% 500 ML 500 ML IV ONE (12:00)
--- NOTE | 2016-10-16 12:51 | Progress Note ---
Assessment and Plan Imp: 1. Hypoglycemia 2. Malfunctioned PC, missed HD 3. ESRD 4. HAGMA/lactic acidosis 2/2 above 5. Hypotension/SIRS 2/2 above; no clear evidence of infection/sepsis 6. Acute respiratory failure, better Rec: 1. HD per renal 2. K repletion per primary/renal 3. Stopped ABX given negative cultures, CXR, and UA 4. Would try to mobilize; consider PT consult 5. Awaiting permcath exchange; can be discharged [id number] Plan of care reviewed w/ patient, she understands/agrees; no family present Subjective Date of service: 10/16/16 Principal diagnosis: SIRS Interval history: No events. BP stable. Awake, alert. Tolerating renal diet. On HD now. No current complaints. Active Medications Cefazolin Sodium (Ancef/Sterile Water 2 Gm/20 Ml) 2 gm IV PREOP NR Stop: 10/16/16 23:00 Famotidine (Pepcid) 20 mg PO DAILY GUANACO Last Admin: 10/16/16 10:13 Dose: Not Given Heparin Sodium (Porcine) (Heparin) 5,000 unit IV ANDRES PRN PRN Reason: hemodialysis Last Admin: 10/14/16 22:31 Dose: 5,000 unit Sodium Chloride (Nacl 0.9%) 100 mls @ 999 mls/hr IV ANDRES PRN PRN Reason: Hypotension Sodium Chloride (Nacl 0.9%) 100 mls @ 999 mls/hr IV ANDRES PRN PRN Reason: Hypotension Potassium Chloride 40 meq/ (Sodium Chloride) 520 mls @ 50 mls/hr IV ONCE ONE Stop: 10/16/16 22:23 Objective Vital Signs - 12hr 10/16/16 10/16/16 10/16/16 04:00 08:30 08:43 Temperature 98.3 F Pulse Rate Pulse Rate [ 70 From Monitor] Pulse Rate [ 70 Right Radial] Respiratory 16 20 Rate Blood Pressure Blood Pressure 145/72 156/75 [Left Arm] O2 Sat by Pulse 98 100 Oximetry 10/16/16 10/16/16 10/16/16 10:25 10:35 10:45 Temperature 98.4 F Pulse Rate 63 62 78 Pulse Rate [ From Monitor] Pulse Rate [ Right Radial] Respiratory 20 Rate Blood Pressure 161/83 160/80 135/73 Blood Pressure [Left Arm] O2 Sat by Pulse Oximetry 10/16/16 10/16/16 10/16/16 11:00 11:15 11:30 Temperature Pulse Rate 76 70 66 Pulse Rate [ From Monitor] Pulse Rate [ Right Radial] Respiratory Rate Blood Pressure 135/73 161/90 180/88 Blood Pressure [Left Arm] O2 Sat by Pulse Oximetry 10/16/16 10/16/16 10/16/16 11:45 12:00 12:15 Temperature Pulse Rate 70 72 71 Pulse Rate [ From Monitor] Pulse Rate [ Right Radial] Respiratory Rate Blood Pressure 154/88 156/91 152/90 Blood Pressure [Left Arm] O2 Sat by Pulse Oximetry Constitutional: no acute distress, alert Eyes: non-icteric ENT: oropharynx moist Neck: supple Effort: normal Ascultation: Bilateral: clear Cardiovascular: regular rate and rhythm (no mrg) Gastrointestinal: normoactive bowel sounds, soft, non-tender, non-distended Integumentary: normal Extremities: no cyanosis, no edema, pink and warm Neurologic: normal mental status, non-focal exam, pupils equal and round, CN II- XII normal Psychiatric: mood appropriate, affect normal CBC and BMP: 10/16/16 06:31 10/16/16 06:31 ABG, PT/INR, D-dimer: ABG POC ABG pH 7.544 (7.35-7.45) H 10/12/16 21:17 POC ABG pCO2 29.4 (35-45) L 10/12/16 21:17 POC ABG pO2 110 (80-105) H 10/12/16 21:17 POC ABG HCO3 25.4 10/12/16 21:17 POC ABG Total CO2 26 10/12/16 21:17 POC ABG O2 Sat 99 10/12/16 21:17 Abnormal lab findings: Abnormal Labs 10/12/16 10/12/16 10/12/16 06:39 06:45 06:45 WBC RBC Hgb Hct Plt Count Lymph % (Auto) Lymph # Seg Neutrophils % Seg Neuts % (Manual) Lymphocytes % (Manual) Seg Neutrophils # Man Lymphocytes # (Manual) POC ABG pH POC ABG pCO2 POC ABG pO2 VBG pH 6.953 L* Potassium Chloride Carbon Dioxide BUN Creatinine Glucose POC Glucose 378 H 365 H Lactic Acid Calcium AST ALT Total Protein Albumin Crossmatch 10/12/16 10/12/16 10/12/16 07:51 08:05 08:05 WBC RBC Hgb Hct Plt Count Lymph % (Auto) Lymph # Seg Neutrophils % Seg Neuts % (Manual) Lymphocytes % (Manual) Seg Neutrophils # Man Lymphocytes # (Manual) POC ABG pH POC ABG pCO2 POC ABG pO2 VBG pH Potassium 6.0 H Chloride 81.9 L Carbon Dioxide 3 L* BUN 52 H Creatinine 8.6 H Glucose 320 H POC Glucose 298 H Lactic Acid 22.7 H* Calcium AST ALT < 5 L Total Protein Albumin 2.7 L Crossmatch 10/12/16 10/12/16 10/12/16 08:42 11:13 12:24 WBC RBC Hgb Hct Plt Count Lymph % (Auto) Lymph # Seg Neutrophils % Seg Neuts % (Manual) Lymphocytes % (Manual) Seg Neutrophils # Man Lymphocytes # (Manual) POC ABG pH 7.080 L POC ABG pCO2 13.8 L POC ABG pO2 155 H VBG pH Potassium Chloride Carbon Dioxide BUN Creatinine Glucose POC Glucose 281 H 256 H Lactic Acid Calcium AST ALT Total Protein Albumin Crossmatch 10/12/16 10/12/16 10/12/16 14:06 17:18 19:08 WBC RBC Hgb Hct Plt Count Lymph % (Auto) Lymph # Seg Neutrophils % Seg Neuts % (Manual) Lymphocytes % (Manual) Seg Neutrophils # Man Lymphocytes # (Manual) POC ABG pH POC ABG pCO2 POC ABG pO2 VBG pH Potassium Chloride Carbon Dioxide BUN Creatinine Glucose POC Glucose 279 H 281 H Lactic Acid 4.1 H* Calcium AST ALT Total Protein Albumin Crossmatch 10/12/16 10/12/16 10/12/16 21:13 21:17 22:43 WBC RBC Hgb 6.6 L Hct 21.2 L D Plt Count Lymph % (Auto) Lymph # Seg Neutrophils % Seg Neuts % (Manual) Lymphocytes % (Manual) Seg Neutrophils # Man Lymphocytes # (Manual) POC ABG pH 7.544 H POC ABG pCO2 29.4 L POC ABG pO2 110 H VBG pH Potassium 3.3 L D Chloride 94.4 L Carbon Dioxide BUN Creatinine 2.1 H D Glucose 222 H POC Glucose Lactic Acid Calcium 7.6 L D AST ALT Total Protein Albumin Crossmatch 10/12/16 10/13/16 10/13/16 23:48 00:25 02:07 WBC RBC Hgb Hct Plt Count Lymph % (Auto) Lymph # Seg Neutrophils % Seg Neuts % (Manual) Lymphocytes % (Manual) Seg Neutrophils # Man Lymphocytes # (Manual) POC ABG pH POC ABG pCO2 POC ABG pO2 VBG pH Potassium Chloride Carbon Dioxide BUN Creatinine Glucose POC Glucose 237 H 173 H Lactic Acid 2.7 H* Calcium AST ALT Total Protein Albumin Crossmatch 10/13/16 10/13/16 10/13/16 04:21 07:51 09:46 WBC RBC Hgb Hct Plt Count Lymph % (Auto) Lymph # Seg Neutrophils % Seg Neuts % (Manual) Lymphocytes % (Manual) Seg Neutrophils # Man Lymphocytes # (Manual) POC ABG pH POC ABG pCO2 POC ABG pO2 VBG pH Potassium Chloride Carbon Dioxide BUN Creatinine Glucose POC Glucose 177 H 195 H Lactic Acid Calcium AST ALT Total Protein Albumin Crossmatch See Detail 10/13/16 10/13/16 10/13/16 11:59 15:30 17:45 WBC RBC 2.02 L Hgb 5.7 L* Hct 17.8 L* Plt Count Lymph % (Auto) 4.6 L Lymph # 0.3 L Seg Neutrophils % 87.6 H Seg Neuts % (Manual) Lymphocytes % (Manual) Seg Neutrophils # Man Lymphocytes # (Manual) POC ABG pH POC ABG pCO2 POC ABG pO2 VBG pH Potassium Chloride Carbon Dioxide BUN Creatinine Glucose POC Glucose 177 H 145 H Lactic Acid Calcium AST ALT Total Protein Albumin Crossmatch 10/13/16 10/13/16 10/14/16 17:45 21:57 06:07 WBC RBC Hgb Hct Plt Count Lymph % (Auto) Lymph # Seg Neutrophils % Seg Neuts % (Manual) Lymphocytes % (Manual) Seg Neutrophils # Man Lymphocytes # (Manual) POC ABG pH POC ABG pCO2 POC ABG pO2 VBG pH Potassium 2.5 L* D Chloride 96.0 L Carbon Dioxide BUN 20 H Creatinine 3.6 H D Glucose 132 H POC Glucose 142 H 112 H Lactic Acid Calcium 7.1 L AST 43 H ALT 5 L Total Protein 5.2 L Albumin 2.4 L Crossmatch 10/14/16 10/14/16 10/14/16 11:20 11:20 14:02 WBC RBC 2.96 L Hgb 8.5 L Hct 25.9 L D Plt Count 123 L Lymph % (Auto) Lymph # Seg Neutrophils % Seg Neuts % (Manual) Lymphocytes % (Manual) Seg Neutrophils # Man Lymphocytes # (Manual) POC ABG pH POC ABG pCO2 POC ABG pO2 VBG pH Potassium 2.4 L* Chloride Carbon Dioxide BUN 27 H Creatinine 4.6 H Glucose 105 H POC Glucose 122 H Lactic Acid Calcium 7.2 L AST ALT Total Protein Albumin Crossmatch 10/14/16 10/15/16 10/15/16 18:15 03:06 03:48 WBC RBC Hgb Hct Plt Count Lymph % (Auto) Lymph # Seg Neutrophils % Seg Neuts % (Manual) Lymphocytes % (Manual) Seg Neutrophils # Man Lymphocytes # (Manual) POC ABG pH POC ABG pCO2 POC ABG pO2 VBG pH Potassium Chloride Carbon Dioxide BUN Creatinine Glucose POC Glucose 137 H 121 H 124 H Lactic Acid Calcium AST ALT Total Protein Albumin Crossmatch 10/15/16 10/15/16 10/15/16 06:47 16:52 20:20 WBC RBC Hgb Hct Plt Count Lymph % (Auto) Lymph # Seg Neutrophils % Seg Neuts % (Manual) Lymphocytes % (Manual) Seg Neutrophils # Man Lymphocytes # (Manual) POC ABG pH POC ABG pCO2 POC ABG pO2 VBG pH Potassium 2.5 L* Chloride Carbon Dioxide BUN Creatinine Glucose POC Glucose 112 H 180 H Lactic Acid Calcium AST ALT Total Protein Albumin Crossmatch 10/15/16 10/16/16 10/16/16 22:06 06:16 06:31 WBC 12.6 H RBC 3.13 L Hgb 9.0 L Hct 27.1 L Plt Count 130 L Lymph % (Auto) Lymph # Seg Neutrophils % Seg Neuts % (Manual) 93.0 H Lymphocytes % (Manual) 4.0 L Seg Neutrophils # Man 11.7 H Lymphocytes # (Manual) 0.5 L POC ABG pH POC ABG pCO2 POC ABG pO2 VBG pH Potassium Chloride Carbon Dioxide BUN Creatinine Glucose POC Glucose 223 H 127 H Lactic Acid Calcium AST ALT Total Protein Albumin Crossmatch 10/16/16 06:31 WBC RBC Hgb Hct Plt Count Lymph % (Auto) Lymph # Seg Neutrophils % Seg Neuts % (Manual) Lymphocytes % (Manual) Seg Neutrophils # Man Lymphocytes # (Manual) POC ABG pH POC ABG pCO2 POC ABG pO2 VBG pH Potassium 2.4 L* Chloride 96.3 L Carbon Dioxide BUN 23 H Creatinine 3.7 H Glucose 129 H POC Glucose Lactic Acid Calcium 7.1 L AST ALT Total Protein Albumin Crossmatch Chest x-ray: report reviewed, image reviewed
[2016-10-16] MEDS ORDERED: NACL 0.9% 250ML 0 ML ONE (13:44)
[2016-10-16] MEDS ORDERED: HEPARIN 10,000 UNITS/10 ML ONE (13:44)
[2016-10-16] MEDS ORDERED: ANCEF/STERILE WATER 2 GM/20 ML 2 GM/20 ML SYRINGE IV ONE (13:44)
[2016-10-16] MEDS: XYLOCAINE 2% INFILTRATI ONE ×3 (14:33→15:02)
[2016-10-16] MEDS ORDERED: SUBLIMAZE ONE (14:33)
[2016-10-16] MEDS ORDERED: VERSED ONE (14:33)
[2016-10-16] MEDS: HEPARIN/NS 5000 UNIT/500ML(CATH LAB) 500 ML IR ONE ×2 (14:33→15:02)
[2016-10-16] MEDS ORDERED: ZOFRAN ONE (15:23)
--- NOTE | 2016-10-16 15:36 | Operative Report ---
Operative Report Operative Report: EXAM: 1. Fluoroscopic guided exchange of a right internal jugular tunneled cuffed hemodialysis catheter. DATE: 10/16/16 INDICATION: End-stage renal disease with clotted right internal jugular PermCath MEDICATIONS: Please see nursing report for full details. ORTHOTICS PROSTHETICS TECHNICIAN: NOEL CARRILLO MD DEVICES: 23 cm tip to cuff 15 Fr dual lumen hemodialysis catheter (palindrome) ; existing catheter was a 23 cm tip to cuff dual lumen hemodialysis catheter ( glidepath) CONTRAST: None. PROCEDURE: The risks, benefits, and alternatives were discussed and informed consent was obtained by telephone with the patient's daughter. The patient was transported to the angiography suite in satisfactory/stable condition and was transported onto the angiography table. The patient was prepped and draped in a sterile fashion. The existing PermCath was prepped and draped in a sterile fashion. Heparin was removed from the lumens and then saline was used to flush the lumens. A stiff angled Glidewire was advanced through each lumen of the existing PermCath. Lidocaine was used to anesthetize the existing PermCath dermatotomy. Using a hemostat, blunt dissection was used to free the existing cuff. Over both 0.035 inch wires, the existing PermCath was removed. Wire was cleaned with chlorprep. A new PermCath was advanced over the wire and position centrally under fluoroscopic guidance. 2-0 Ethilon suture was used to secure the catheter at the dermatotomy. The catheter was charged with heparin 1000 units/mL space. The patient was transferred from the angiography suite back to the floor in stable condition. FINDINGS: 1. Excellent flow was obtained through the dialysis catheter with 20 mL syringes. 2. The new catheter tip is in the right atrium. IMPRESSION: 1. Successful fluoroscopic guided replacement of a right internal jugular tunneled cuffed hemodialysis catheter.
--- NOTE | 2016-10-16 16:05 | Progress Note ---
Assessment and Plan Assessment and plan: 66-year-old woman with a history of end-stage renal disease who presented status post fall, she had been non compliant with HD and had a clotted permacath , she was found to be Confused and uremic 1. Uremia due to ESRD and Permacath malfunction -temporary femoral vasc cath placed 10/12, continue HD, nephrology input appreciated -WIll need exchange of clotted vasc cath prior to dc 2. Status post fall with trauma All trauma imaging have been negative for fracture, continue PT, continue pain management 3. Sepsis has been ruled out via neg urine, blood cultures and CXR and abx were dc 4. Hypotension was likely due to dehydration and anemia, pressors dc since 10/12. Has been normotensive since, Received IVF and blood transfusion 5. Hypokalemia replete cautiously given ESRD 6. Anemia of chronic disease no evidence of acute blood loss, likely due to ESRD sp 2 units PRBC, with improvement of Hg Tentative transfer to floors in 24 hours if continues to improve Critical care time 32 minutes History Interval history: mental status is much improved, she is now speaking and back to her baseline, she continues to ask when she can go home. at baseline, she is demented and minimally verbal and has poor insight. No events overnight, Hospitalist Physical - Physical exam Narrative exam: General: appears well HEENT: Left eye contusion and bruising cardiac: S1-S2 heard lungs: clear to auscultation, abdomen: soft, nontender, nondistended bowel sounds positive extremities: no edema clubbing or cyanosis Skin: no rash or lesion Neuro: Demented, obeys commands, oriented to person, lacks insight. moves all extremities - Constitutional Vitals: Temp Pulse Resp BP Pulse Ox 98.2 F 74 18 158/97 100 10/16/16 13:30 10/16/16 13:30 10/16/16 13:30 10/16/16 13:30 10/16/16 08:43 General appearance: Present: no acute distress Results - Labs CBC & Chem 7: 10/16/16 06:31 10/16/16 06:31 Labs: Laboratory Last Values WBC 12.6 K/mm3 (4.5-11.0) H 10/16/16 06:31 RBC 3.13 M/mm3 (3.65-5.03) L 10/16/16 06:31 Hgb 9.0 gm/dl (10.1-14.3) L 10/16/16 06:31 Hct 27.1 % (30.3-42.9) L 10/16/16 06:31 MCV 87 fl (79-97) 10/16/16 06:31 MCH 29 pg (28-32) 10/16/16 06:31 MCHC 33 % (30-34) 10/16/16 06:31 RDW 14.0 % (13.2-15.2) 10/16/16 06:31 Plt Count 130 K/mm3 (140-440) L 10/16/16 06:31 Lymph % (Auto) 4.6 % (13.4-35.0) L 10/13/16 17:45 [place] % (Auto) 7.3 % (0.0-7.3) 10/13/16 17:45 Eos % (Auto) 0.3 % (0.0-4.3) 10/13/16 17:45 Baso % (Auto) 0.2 % (0.0-1.8) 10/13/16 17:45 Lymph # 0.3 K/mm3 (1.2-5.4) L 10/13/16 17:45 [place] # 0.5 K/mm3 (0.0-0.8) 10/13/16 17:45 Eos # 0.0 K/mm3 (0.0-0.4) 10/13/16 17:45 Baso # 0.0 K/mm3 (0.0-0.1) 10/13/16 17:45 Add Manual Diff Complete 10/16/16 06:31 Total Counted 100 10/16/16 06:31 Seg Neutrophils % Medical Staff Manager 10/16/16 06:31 Seg Neuts % (Manual) 93.0 % (40.0-70.0) H 10/16/16 06:31 Band Neutrophils % 1.0 % 10/16/16 06:31 Lymphocytes % (Manual) 4.0 % (13.4-35.0) L 10/16/16 06:31 Reactive Lymphs % (Man) 0 % 10/16/16 06:31 Monocytes % (Manual) 2.0 % (0.0-7.3) 10/16/16 06:31 Eosinophils % (Manual) 0 % (0.0-4.3) 10/16/16 06:31 Basophils % (Manual) 0 % (0.0-1.8) 10/16/16 06:31 Metamyelocytes % 0 % 10/16/16 06:31 Myelocytes % 0 % 10/16/16 06:31 Promyelocytes % 0 % 10/16/16 06:31 Blast Cells % 0 % 10/16/16 06:31 Nucleated RBC % Not Reportable 10/16/16 06:31 Seg Neutrophils # 6.0 K/mm3 (1.8-7.7) 10/13/16 17:45 Seg Neutrophils # Man 11.7 K/mm3 (1.8-7.7) H 10/16/16 06:31 Band Neutrophils # 0.1 K/mm3 10/16/16 06:31 Lymphocytes # (Manual) 0.5 K/mm3 (1.2-5.4) L 10/16/16 06:31 Abs React Lymphs (Man) 0.0 K/mm3 10/16/16 06:31 Monocytes # (Manual) 0.3 K/mm3 (0.0-0.8) 10/16/16 06:31 Eosinophils # (Manual) 0.0 K/mm3 (0.0-0.4) 10/16/16 06:31 Basophils # (Manual) 0.0 K/mm3 (0.0-0.1) 10/16/16 06:31 Metamyelocytes # 0.0 K/mm3 10/16/16 06:31 Myelocytes # 0.0 K/mm3 10/16/16 06:31 Promyelocytes # 0.0 K/mm3 10/16/16 06:31 Blast Cells # 0.0 K/mm3 10/16/16 06:31 WBC Morphology Not Reportable 10/16/16 06:31 Hypersegmented Neuts Not Reportable 10/16/16 06:31 Hyposegmented Neuts Not Reportable 10/16/16 06:31 Hypogranular Neuts Not Reportable 10/16/16 06:31 Smudge Cells Not Reportable 10/16/16 06:31 Toxic Granulation Not Reportable 10/16/16 06:31 Toxic Vacuolation Not Reportable 10/16/16 06:31 Dohle Bodies Not Reportable 10/16/16 06:31 Pelger-Huet Anomaly Not Reportable 10/16/16 06:31 Ladan Rods Not Reportable 10/16/16 06:31 Platelet Estimate Consistent w auto 10/16/16 06:31 Clumped Platelets Not Reportable 10/16/16 06:31 Plt Clumps, EDTA Not Reportable 10/16/16 06:31 Large Platelets Not Reportable 10/16/16 06:31 Giant Platelets Not Reportable 10/16/16 06:31 Platelet Satelliting Not Reportable 10/16/16 06:31 Plt Morphology Comment Not Reportable 10/16/16 06:31 RBC Morphology Not Reportable 10/16/16 06:31 Dimorphic RBCs Not Reportable 10/16/16 06:31 Polychromasia Not Reportable 10/16/16 06:31 Hypochromasia Not Reportable 10/16/16 06:31 Poikilocytosis Not Reportable 10/16/16 06:31 Anisocytosis 1+ 10/16/16 06:31 Microcytosis Not Reportable 10/16/16 06:31 Macrocytosis Not Reportable 10/16/16 06:31 Spherocytes Not Reportable 10/16/16 06:31 Pappenheimer Bodies Not Reportable 10/16/16 06:31 Sickle Cells Not Reportable 10/16/16 06:31 Target Cells Not Reportable 10/16/16 06:31 Tear Drop Cells Not Reportable 10/16/16 06:31 Ovalocytes Not Reportable 10/16/16 06:31 Stomatocytes Few 10/16/16 06:31 Helmet Cells Not Reportable 10/16/16 06:31 [place]iel-[place] Bodies Not Reportable 10/16/16 06:31 [place] Rings Not Reportable 10/16/16 06:31 [place] Cells Not Reportable 10/16/16 06:31 Bite Cells Not Reportable 10/16/16 06:31 Crenated Cell Not Reportable 10/16/16 06:31 Elliptocytes Not Reportable 10/16/16 06:31 Acanthocytes (Spur) Not Reportable 10/16/16 06:31 Rouleaux Not Reportable 10/16/16 06:31 Hemoglobin C Crystals Not Reportable 10/16/16 06:31 Schistocytes Not Reportable 10/16/16 06:31 Malaria parasites Not Reportable 10/16/16 06:31 Jhony Bodies Not Reportable 10/16/16 06:31 Hem Pathologist Commnt No 10/16/16 06:31 POC ABG pH 7.544 (7.35-7.45) H 10/12/16 21:17 POC ABG pCO2 29.4 (35-45) L 10/12/16 21:17 POC ABG pO2 110 (80-105) H 10/12/16 21:17 POC ABG HCO3 25.4 10/12/16 21:17 POC ABG Total CO2 26 10/12/16 21:17 POC ABG O2 Sat 99 10/12/16 21:17 POC ABG Base Excess 3 10/12/16 21:17 VBG pH 6.953 (7.320-7.420) L* 10/12/16 06:45 FiO2 32 % 10/12/16 21:17 Sodium 140 mmol/L (137-145) 10/16/16 06:31 Potassium 2.4 mmol/L (3.6-5.0) L* 10/16/16 06:31 Chloride 96.3 mmol/L (98-107) L 10/16/16 06:31 Carbon Dioxide 27 mmol/L (22-30) 10/16/16 06:31 Anion Gap 19 mmol/L 10/16/16 06:31 BUN 23 mg/dL (7-17) H 10/16/16 06:31 Creatinine 3.7 mg/dL (0.7-1.2) H 10/16/16 06:31 Estimated GFR 15 ml/min 10/16/16 06:31 BUN/Creatinine Ratio 6.21 % 10/16/16 06:31 Glucose 129 mg/dL (65-100) H 10/16/16 06:31 POC Glucose 127 (70-105) H 10/16/16 06:16 Lactic Acid 1.1 mmol/L (0.7-2.0) 10/14/16 11:20 Calcium 7.1 mg/dL (8.4-10.2) L 10/16/16 06:31 Total Bilirubin 0.2 mg/dL (0.1-1.2) 10/13/16 17:45 AST 43 units/L (5-40) H 10/13/16 17:45 ALT 5 units/L (7-56) L 10/13/16 17:45 Alkaline Phosphatase 66 units/L (35-129) 10/13/16 17:45 Troponin T 0.087 ng/mL (0.00-0.029) H 10/12/16 00:02 Total Protein 5.2 g/dL (6.3-8.2) L 10/13/16 17:45 Albumin 2.4 g/dL (3.9-5) L 10/13/16 17:45 Albumin/Globulin Ratio 0.9 % 10/13/16 17:45 Triglycerides 132 mg/dL (2-149) 10/12/16 00:02 Cholesterol 135 mg/dL (50-199) 10/12/16 00:02 LDL Cholesterol Direct 68 mg/dL (50-130) 10/12/16 00:02 HDL Cholesterol 41 mg/dL (40-59) 10/12/16 00:02 Cholesterol/HDL Ratio 3.29 % 10/12/16 00:02 Lipase 214 units/L (13-60) H 10/12/16 00:02 Urine Color Yellow (Yellow) 10/11/16 00:10 Urine Turbidity Clear (Clear) 10/11/16 00:10 Urine pH 5.0 (5.0-7.0) 10/11/16 00:10 Ur Specific [place] 1.011 (1.003-1.030) 10/11/16 00:10 Urine Protein 100 mg/dl mg/dL (Negative) 10/11/16 00:10 Urine Glucose (UA) Neg mg/dL (Negative) 10/11/16 00:10 Urine Ketones Tr mg/dL (Negative) 10/11/16 00:10 Urine Blood Sm (Negative) 10/11/16 00:10 Urine Nitrite Neg (Negative) 10/11/16 00:10 Urine Bilirubin Neg (Negative) 10/11/16 00:10 Urine Urobilinogen < 2.0 mg/dL (<2.0) 10/11/16 00:10 Ur Leukocyte Esterase Neg (Negative) 10/11/16 00:10 Urine WBC (Auto) 1.0 /HPF (0.0-6.0) 10/11/16 00:10 Urine RBC (Auto) < 1.0 /HPF (0.0-6.0) 10/11/16 00:10 U Epithel Cells (Auto) 5.0 /HPF (0-13.0) 10/11/16 00:10 Amorphous Crystals 1+ 10/11/16 00:10 Blood Type O POSITIVE 10/13/16 07:51 Antibody Screen Negative 10/13/16 07:51 Crossmatch See Detail 10/13/16 07:51
[2016-10-17] MEDS ORDERED: D50W (25GM) IV PRN (08:00)
[2016-10-17 08:28] LABS: BUN/Creatinine Ratio 5.15; Calcium 7.8 mg/dL (8.4-10.2); Chloride 98.3 mmol/L (98-107); Potassium 3.2 mmol/L (3.6-5.0)
[2016-10-17] MEDS ORDERED: K-DUR PO ONE (08:40)
--- NOTE | 2016-10-17 08:40 | Progress Note ---
Assessment and Plan Impression: * End stage renal disease on HD MWF * Severe metabolic acidosis - resolved * Malfunctioning IJ permcath * Sepsis * Anemia secondary to ESRD * Hypokalemia Plan: * Hemodialysis MWF; UF as tolerated * HD via right internal jugular permcath - exchanged 10/16 * K improved - 3.2 today - will give 20meq x 1 dose * Abx per primary team * Renal diet * Epogen for goal Hb 10-12 Subjective Date of service: 10/17/16 Principal diagnosis: SIRS Interval history: Patient seen without complaint Objective - Vital Signs Vital signs: Vital Signs - 12hr 10/17/16 00:15 Temperature 98.4 F Pulse Rate [ 82 From Monitor] Respiratory 16 Rate Blood Pressure 151/80 [Left Arm] O2 Sat by Pulse 98 Oximetry - General Appearance General appearance: well-developed, well-nourished EENT: other (left eye ecchymosis) Respiratory: Present: Clear to Ascultation Cardiology: regular, S1S2 Gastrointestinal: normal, no tenderness, no distended Integumentary: no rash Psychiatric: mood/affect appropriate, cooperative - Lab 10/16/16 06:31 10/17/16 07:48 Most recent lab results Calcium 7.8 mg/dL (8.4-10.2) L 10/17/16 07:48
[2016-10-17] MEDS: PEPCID PO SCH (10:16)
[2016-10-17] MEDS: ULTRAM PO PRN ×2 (10:24→18:32)
[2016-10-17] MEDS: COZAAR PO SCH (10:25)
--- NOTE | 2016-10-17 13:15 | Progress Note ---
Assessment and Plan Imp: 1. Hypoglycemia 2. Malfunctioned PC, missed HD 3. ESRD 4. HAGMA/lactic acidosis 2/2 above 5. Hypotension/SIRS 2/2 above; no clear evidence of infection/sepsis 6. Acute respiratory failure, better Rec: 1. HD per renal 2. K repletion per primary/renal 3. Stopped ABX given negative cultures, CXR, and UA 4. Would try to mobilize; f/u w/ PCP re: chronic pain in her feet 5. Can be discharged pulm-[id number]; we will sign off; call with any questions Plan of care reviewed w/ patient/family, they understand/agree Subjective Date of service: 10/17/16 Principal diagnosis: SIRS Interval history: No events. BP stable. Awake, alert. Tolerating renal diet. On HD now. PC exchanged. C/o of hand and bilateral feet pain (chronic per family). Active Medications Dextrose (D50w (25gm)) 50 ml IV PRN PRN PRN Reason: Hypoglycemia Famotidine (Pepcid) 20 mg PO DAILY [facility] Last Admin: 10/17/16 10:16 Dose: 20 mg Heparin Sodium (Porcine) (Heparin) 5,000 unit IV ANDRES PRN PRN Reason: hemodialysis Last Admin: 10/14/16 22:31 Dose: 5,000 unit Sodium Chloride (Nacl 0.9%) 100 mls @ 999 mls/hr IV ANDRES PRN PRN Reason: Hypotension Sodium Chloride (Nacl 0.9%) 100 mls @ 999 mls/hr IV ANDRES PRN PRN Reason: Hypotension Insulin Aspart (Novolog) 0 units SUB-Q ACHS [facility] PRN Reason: Protocol Losartan Potassium (Cozaar) 50 mg PO QDAY [facility] Last Admin: 10/17/16 10:25 Dose: 50 mg Tramadol HCl (Ultram) 50 mg PO Q6H PRN PRN Reason: Pain, Moderate (4-6) Last Admin: 10/17/16 10:24 Dose: 50 mg Objective Vital Signs - 12hr 10/17/16 10/17/16 10/17/16 08:00 10:01 10:24 Temperature 98.9 F Pulse Rate Pulse Rate [ 80 From Monitor] Respiratory 18 20 20 Rate Blood Pressure Blood Pressure 163/82 [Left Arm] O2 Sat by Pulse 100 Oximetry 10/17/16 10:25 Temperature Pulse Rate 76 Pulse Rate [ From Monitor] Respiratory Rate Blood Pressure 140/80 Blood Pressure [Left Arm] O2 Sat by Pulse Oximetry Constitutional: no acute distress, alert Eyes: non-icteric ENT: oropharynx moist Neck: supple Effort: normal Ascultation: Bilateral: clear Cardiovascular: regular rate and rhythm (no mrg) Gastrointestinal: normoactive bowel sounds, soft, non-tender, non-distended Integumentary: normal Extremities: no cyanosis, no edema, pink and warm Neurologic: normal mental status, non-focal exam, pupils equal and round, CN II- XII normal Psychiatric: mood appropriate, affect normal CBC and BMP: 10/16/16 06:31 10/17/16 07:48 ABG, PT/INR, D-dimer: ABG POC ABG pH 7.544 (7.35-7.45) H 10/12/16 21:17 POC ABG pCO2 29.4 (35-45) L 10/12/16 21:17 POC ABG pO2 110 (80-105) H 10/12/16 21:17 POC ABG HCO3 25.4 10/12/16 21:17 POC ABG Total CO2 26 10/12/16 21:17 POC ABG O2 Sat 99 10/12/16 21:17 Abnormal lab findings: Abnormal Labs 10/12/16 10/12/16 10/12/16 06:39 06:45 06:45 WBC RBC Hgb Hct Plt Count Lymph % (Auto) Lymph # Seg Neutrophils % Seg Neuts % (Manual) Lymphocytes % (Manual) Seg Neutrophils # Man Lymphocytes # (Manual) POC ABG pH POC ABG pCO2 POC ABG pO2 VBG pH 6.953 L* Potassium Chloride Carbon Dioxide BUN Creatinine Glucose POC Glucose 378 H 365 H Lactic Acid Calcium AST ALT Total Protein Albumin Crossmatch 10/12/16 10/12/16 10/12/16 07:51 08:05 08:05 WBC RBC Hgb Hct Plt Count Lymph % (Auto) Lymph # Seg Neutrophils % Seg Neuts % (Manual) Lymphocytes % (Manual) Seg Neutrophils # Man Lymphocytes # (Manual) POC ABG pH POC ABG pCO2 POC ABG pO2 VBG pH Potassium 6.0 H Chloride 81.9 L Carbon Dioxide 3 L* BUN 52 H Creatinine 8.6 H Glucose 320 H POC Glucose 298 H Lactic Acid 22.7 H* Calcium AST ALT < 5 L Total Protein Albumin 2.7 L Crossmatch 10/12/16 10/12/16 10/12/16 08:42 11:13 12:24 WBC RBC Hgb Hct Plt Count Lymph % (Auto) Lymph # Seg Neutrophils % Seg Neuts % (Manual) Lymphocytes % (Manual) Seg Neutrophils # Man Lymphocytes # (Manual) POC ABG pH 7.080 L POC ABG pCO2 13.8 L POC ABG pO2 155 H VBG pH Potassium Chloride Carbon Dioxide BUN Creatinine Glucose POC Glucose 281 H 256 H Lactic Acid Calcium AST ALT Total Protein Albumin Crossmatch 10/12/16 10/12/16 10/12/16 14:06 17:18 19:08 WBC RBC Hgb Hct Plt Count Lymph % (Auto) Lymph # Seg Neutrophils % Seg Neuts % (Manual) Lymphocytes % (Manual) Seg Neutrophils # Man Lymphocytes # (Manual) POC ABG pH POC ABG pCO2 POC ABG pO2 VBG pH Potassium Chloride Carbon Dioxide BUN Creatinine Glucose POC Glucose 279 H 281 H Lactic Acid 4.1 H* Calcium AST ALT Total Protein Albumin Crossmatch 10/12/16 10/12/16 10/12/16 21:13 21:17 22:43 WBC RBC Hgb 6.6 L Hct 21.2 L D Plt Count Lymph % (Auto) Lymph # Seg Neutrophils % Seg Neuts % (Manual) Lymphocytes % (Manual) Seg Neutrophils # Man Lymphocytes # (Manual) POC ABG pH 7.544 H POC ABG pCO2 29.4 L POC ABG pO2 110 H VBG pH Potassium 3.3 L D Chloride 94.4 L Carbon Dioxide BUN Creatinine 2.1 H D Glucose 222 H POC Glucose Lactic Acid Calcium 7.6 L D AST ALT Total Protein Albumin Crossmatch 10/12/16 10/13/16 10/13/16 23:48 00:25 02:07 WBC RBC Hgb Hct Plt Count Lymph % (Auto) Lymph # Seg Neutrophils % Seg Neuts % (Manual) Lymphocytes % (Manual) Seg Neutrophils # Man Lymphocytes # (Manual) POC ABG pH POC ABG pCO2 POC ABG pO2 VBG pH Potassium Chloride Carbon Dioxide BUN Creatinine Glucose POC Glucose 237 H 173 H Lactic Acid 2.7 H* Calcium AST ALT Total Protein Albumin Crossmatch 10/13/16 10/13/16 10/13/16 04:21 07:51 09:46 WBC RBC Hgb Hct Plt Count Lymph % (Auto) Lymph # Seg Neutrophils % Seg Neuts % (Manual) Lymphocytes % (Manual) Seg Neutrophils # Man Lymphocytes # (Manual) POC ABG pH POC ABG pCO2 POC ABG pO2 VBG pH Potassium Chloride Carbon Dioxide BUN Creatinine Glucose POC Glucose 177 H 195 H Lactic Acid Calcium AST ALT Total Protein Albumin Crossmatch See Detail 10/13/16 10/13/16 10/13/16 11:59 15:30 17:45 WBC RBC 2.02 L Hgb 5.7 L* Hct 17.8 L* Plt Count Lymph % (Auto) 4.6 L Lymph # 0.3 L Seg Neutrophils % 87.6 H Seg Neuts % (Manual) Lymphocytes % (Manual) Seg Neutrophils # Man Lymphocytes # (Manual) POC ABG pH POC ABG pCO2 POC ABG pO2 VBG pH Potassium Chloride Carbon Dioxide BUN Creatinine Glucose POC Glucose 177 H 145 H Lactic Acid Calcium AST ALT Total Protein Albumin Crossmatch 10/13/16 10/13/16 10/14/16 17:45 21:57 06:07 WBC RBC Hgb Hct Plt Count Lymph % (Auto) Lymph # Seg Neutrophils % Seg Neuts % (Manual) Lymphocytes % (Manual) Seg Neutrophils # Man Lymphocytes # (Manual) POC ABG pH POC ABG pCO2 POC ABG pO2 VBG pH Potassium 2.5 L* D Chloride 96.0 L Carbon Dioxide BUN 20 H Creatinine 3.6 H D Glucose 132 H POC Glucose 142 H 112 H Lactic Acid Calcium 7.1 L AST 43 H ALT 5 L Total Protein 5.2 L Albumin 2.4 L Crossmatch 10/14/16 10/14/16 10/14/16 11:20 11:20 14:02 WBC RBC 2.96 L Hgb 8.5 L Hct 25.9 L D Plt Count 123 L Lymph % (Auto) Lymph # Seg Neutrophils % Seg Neuts % (Manual) Lymphocytes % (Manual) Seg Neutrophils # Man Lymphocytes # (Manual) POC ABG pH POC ABG pCO2 POC ABG pO2 VBG pH Potassium 2.4 L* Chloride Carbon Dioxide BUN 27 H Creatinine 4.6 H Glucose 105 H POC Glucose 122 H Lactic Acid Calcium 7.2 L AST ALT Total Protein Albumin Crossmatch 10/14/16 10/15/16 10/15/16 18:15 03:06 03:48 WBC RBC Hgb Hct Plt Count Lymph % (Auto) Lymph # Seg Neutrophils % Seg Neuts % (Manual) Lymphocytes % (Manual) Seg Neutrophils # Man Lymphocytes # (Manual) POC ABG pH POC ABG pCO2 POC ABG pO2 VBG pH Potassium Chloride Carbon Dioxide BUN Creatinine Glucose POC Glucose 137 H 121 H 124 H Lactic Acid Calcium AST ALT Total Protein Albumin Crossmatch 10/15/16 10/15/16 10/15/16 06:47 16:52 20:20 WBC RBC Hgb Hct Plt Count Lymph % (Auto) Lymph # Seg Neutrophils % Seg Neuts % (Manual) Lymphocytes % (Manual) Seg Neutrophils # Man Lymphocytes # (Manual) POC ABG pH POC ABG pCO2 POC ABG pO2 VBG pH Potassium 2.5 L* Chloride Carbon Dioxide BUN Creatinine Glucose POC Glucose 112 H 180 H Lactic Acid Calcium AST ALT Total Protein Albumin Crossmatch 10/15/16 10/16/16 10/16/16 22:06 06:16 06:31 WBC 12.6 H RBC 3.13 L Hgb 9.0 L Hct 27.1 L Plt Count 130 L Lymph % (Auto) Lymph # Seg Neutrophils % Seg Neuts % (Manual) 93.0 H Lymphocytes % (Manual) 4.0 L Seg Neutrophils # Man 11.7 H Lymphocytes # (Manual) 0.5 L POC ABG pH POC ABG pCO2 POC ABG pO2 VBG pH Potassium Chloride Carbon Dioxide BUN Creatinine Glucose POC Glucose 223 H 127 H Lactic Acid Calcium AST ALT Total Protein Albumin Crossmatch 10/16/16 10/16/16 10/16/16 06:31 17:02 21:08 WBC RBC Hgb Hct Plt Count Lymph % (Auto) Lymph # Seg Neutrophils % Seg Neuts % (Manual) Lymphocytes % (Manual) Seg Neutrophils # Man Lymphocytes # (Manual) POC ABG pH POC ABG pCO2 POC ABG pO2 VBG pH Potassium 2.4 L* Chloride 96.3 L Carbon Dioxide BUN 23 H Creatinine 3.7 H Glucose 129 H POC Glucose 133 H 145 H Lactic Acid Calcium 7.1 L AST ALT Total Protein Albumin Crossmatch 10/17/16 10/17/16 10/17/16 06:54 07:48 10:00 WBC RBC Hgb Hct Plt Count Lymph % (Auto) Lymph # Seg Neutrophils % Seg Neuts % (Manual) Lymphocytes % (Manual) Seg Neutrophils # Man Lymphocytes # (Manual) POC ABG pH POC ABG pCO2 POC ABG pO2 VBG pH Potassium 3.2 L D Chloride Carbon Dioxide BUN Creatinine 3.3 H Glucose 127 H POC Glucose 124 H 191 H Lactic Acid Calcium 7.8 L AST ALT Total Protein Albumin Crossmatch Chest x-ray: report reviewed, image reviewed
[2016-10-17] MEDS: NOVOLOG SUB-Q SCH ×2 (13:24→18:31)
--- NOTE | 2016-10-17 16:20 | Progress Note ---
Assessment and Plan Assessment and plan: 66-year-old woman with a history of end-stage renal disease who presented status post fall, she had been non compliant with HD and had a clotted permacath , she was found to be Confused and uremic 1. Uremia due to ESRD and Permacath malfunction -temporary femoral vasc cath placed 10/12, continue HD, nephrology input appreciated -s/p replacement of clotted vasc cath 2. Status post fall with trauma All trauma imaging have been negative for fracture, continue PT, continue pain management 3. Sepsis has been ruled out via neg urine, blood cultures and CXR and abx were dc 4. Hypotension was likely due to dehydration and anemia, pressors dc since 10/12. Has been normotensive since, Received IVF and blood transfusion 5. Hypokalemia replete cautiously given ESRD 6. Anemia of chronic disease no evidence of acute blood loss, likely due to ESRD sp 2 units PRBC, with improvement of Hg History Interval history: mental status is much improved, she is now speaking and back to her baseline, she continues to ask when she can go home. at baseline, she is demented and minimally verbal and has poor insight. No events overnight, Hospitalist Physical - Physical exam Narrative exam: General: Toxic appearance HEENT: Left eye contusion and bruising cardiac: S1-S2 heard lungs: clear to auscultation, abdomen: soft, nontender, nondistended bowel sounds positive extremities: no edema clubbing or cyanosis Skin: no rash or lesion Neuro: Altered mental status, lethargic and somnolent - Constitutional Vitals: Temp Pulse Resp BP Pulse Ox 98.9 F 76 16 140/80 100 10/17/16 08:00 10/17/16 10:25 10/17/16 11:24 10/17/16 10:25 10/17/16 08:00 General appearance: Present: no acute distress Results - Labs CBC & Chem 7: 10/20/16 06:33 10/20/16 06:33 Labs: Laboratory Last Values WBC 12.6 K/mm3 (4.5-11.0) H 10/16/16 06:31 RBC 3.13 M/mm3 (3.65-5.03) L 10/16/16 06:31 Hgb 9.0 gm/dl (10.1-14.3) L 10/16/16 06:31 Hct 27.1 % (30.3-42.9) L 10/16/16 06:31 MCV 87 fl (79-97) 10/16/16 06:31 MCH 29 pg (28-32) 10/16/16 06:31 MCHC 33 % (30-34) 10/16/16 06:31 RDW 14.0 % (13.2-15.2) 10/16/16 06:31 Plt Count 130 K/mm3 (140-440) L 10/16/16 06:31 Lymph % (Auto) 4.6 % (13.4-35.0) L 10/13/16 17:45 [place] % (Auto) 7.3 % (0.0-7.3) 10/13/16 17:45 Eos % (Auto) 0.3 % (0.0-4.3) 10/13/16 17:45 Baso % (Auto) 0.2 % (0.0-1.8) 10/13/16 17:45 Lymph # 0.3 K/mm3 (1.2-5.4) L 10/13/16 17:45 [place] # 0.5 K/mm3 (0.0-0.8) 10/13/16 17:45 Eos # 0.0 K/mm3 (0.0-0.4) 10/13/16 17:45 Baso # 0.0 K/mm3 (0.0-0.1) 03 17:45 Add Manual Diff Complete 10/16/16 06:31 Total Counted 100 10/16/16 06:31 Seg Neutrophils % [place] [employer] 10/16/16 06:31 Seg Neuts % (Manual) 93.0 % (40.0-70.0) H 10/16/16 06:31 Band Neutrophils % 1.0 % 10/16/16 06:31 Lymphocytes % (Manual) 4.0 % (13.4-35.0) L 10/16/16 06:31 Reactive Lymphs % (Man) 0 % 10/16/16 06:31 Monocytes % (Manual) 2.0 % (0.0-7.3) 10/16/16 06:31 Eosinophils % (Manual) 0 % (0.0-4.3) 10/16/16 06:31 Basophils % (Manual) 0 % (0.0-1.8) 10/16/16 06:31 Metamyelocytes % 0 % 10/16/16 06:31 Myelocytes % 0 % 10/16/16 06:31 Promyelocytes % 0 % 10/16/16 06:31 Blast Cells % 0 % 10/16/16 06:31 Nucleated RBC % Not Reportable 10/16/16 06:31 Seg Neutrophils # 6.0 K/mm3 (1.8-7.7) 10/13/16 17:45 Seg Neutrophils # Man 11.7 K/mm3 (1.8-7.7) H 10/16/16 06:31 Band Neutrophils # 0.1 K/mm3 10/16/16 06:31 Lymphocytes # (Manual) 0.5 K/mm3 (1.2-5.4) L 10/16/16 06:31 Abs React Lymphs (Man) 0.0 K/mm3 10/16/16 06:31 Monocytes # (Manual) 0.3 K/mm3 (0.0-0.8) 10/16/16 06:31 Eosinophils # (Manual) 0.0 K/mm3 (0.0-0.4) 10/16/16 06:31 Basophils # (Manual) 0.0 K/mm3 (0.0-0.1) 10/16/16 06:31 Metamyelocytes # 0.0 K/mm3 10/16/16 06:31 Myelocytes # 0.0 K/mm3 10/16/16 06:31 Promyelocytes # 0.0 K/mm3 10/16/16 06:31 Blast Cells # 0.0 K/mm3 10/16/16 06:31 WBC Morphology Not Reportable 10/16/16 06:31 Hypersegmented Neuts Not Reportable 10/16/16 06:31 Hyposegmented Neuts Not Reportable 10/16/16 06:31 Hypogranular Neuts Not Reportable 10/16/16 06:31 Smudge Cells Not Reportable 10/16/16 06:31 Toxic Granulation Not Reportable 10/16/16 06:31 Toxic Vacuolation Not Reportable 10/16/16 06:31 Dohle Bodies Not Reportable 10/16/16 06:31 Pelger-Huet Anomaly Not Reportable 10/16/16 06:31 Ladan Rods Not Reportable 10/16/16 06:31 Platelet Estimate Consistent w auto 10/16/16 06:31 Clumped Platelets Not Reportable 10/16/16 06:31 Plt Clumps, EDTA Not Reportable 10/16/16 06:31 Large Platelets Not Reportable 10/16/16 06:31 Giant Platelets Not Reportable 10/16/16 06:31 Platelet Satelliting Not Reportable 10/16/16 06:31 Plt Morphology Comment Not Reportable 10/16/16 06:31 RBC Morphology Not Reportable 10/16/16 06:31 Dimorphic RBCs Not Reportable 10/16/16 06:31 Polychromasia Not Reportable 10/16/16 06:31 Hypochromasia Not Reportable 10/16/16 06:31 Poikilocytosis Not Reportable 10/16/16 06:31 Anisocytosis 1+ 10/16/16 06:31 Microcytosis Not Reportable 10/16/16 06:31 Macrocytosis Not Reportable 10/16/16 06:31 Spherocytes Not Reportable 10/16/16 06:31 Pappenheimer Bodies Not Reportable 10/16/16 06:31 Sickle Cells Not Reportable 10/16/16 06:31 Target Cells Not Reportable 10/16/16 06:31 Tear Drop Cells Not Reportable 10/16/16 06:31 Ovalocytes Not Reportable 10/16/16 06:31 Stomatocytes Few 10/16/16 06:31 Helmet Cells Not Reportable 10/16/16 06:31 [place] Bodies Not Reportable 10/16/16 06:31 [place] Rings Not Reportable 10/16/16 06:31 [place] Cells Not Reportable 10/16/16 06:31 Bite Cells Not Reportable 10/16/16 06:31 Crenated Cell Not Reportable 10/16/16 06:31 Elliptocytes Not Reportable 10/16/16 06:31 Acanthocytes (Spur) Not Reportable 10/16/16 06:31 Rouleaux Not Reportable 10/16/16 06:31 Hemoglobin C Crystals Not Reportable 10/16/16 06:31 Schistocytes Not Reportable 10/16/16 06:31 Malaria parasites Not Reportable 10/16/16 06:31 Jhony Bodies Not Reportable 10/16/16 06:31 Hem Pathologist Commnt No 10/16/16 06:31 POC ABG pH 7.544 (7.35-7.45) H 10/12/16 21:17 POC ABG pCO2 29.4 (35-45) L 10/12/16 21:17 POC ABG pO2 110 (80-105) H 10/12/16 21:17 POC ABG HCO3 25.4 10/12/16 21:17 POC ABG Total CO2 26 10/12/16 21:17 POC ABG O2 Sat 99 10/12/16 21:17 POC ABG Base Excess 3 10/12/16 21:17 VBG pH 6.953 (7.320-7.420) L* 10/12/16 06:45 FiO2 32 % 10/12/16 21:17 Sodium 140 mmol/L (137-145) 10/17/16 07:48 Potassium 3.2 mmol/L (3.6-5.0) L D 10/17/16 07:48 Chloride 98.3 mmol/L (98-107) 10/17/16 07:48 Carbon Dioxide 24 mmol/L (22-30) 10/17/16 07:48 Anion Gap 21 mmol/L 10/17/16 07:48 BUN 17 mg/dL (7-17) 10/17/16 07:48 Creatinine 3.3 mg/dL (0.7-1.2) H 10/17/16 07:48 Estimated GFR 17 ml/min 10/17/16 07:48 BUN/Creatinine Ratio 5.15 % 10/17/16 07:48 Glucose 127 mg/dL (65-100) H 10/17/16 07:48 POC Glucose 191 (70-105) H 10/17/16 10:00 Lactic Acid 1.1 mmol/L (0.7-2.0) 10/14/16 11:20 Calcium 7.8 mg/dL (8.4-10.2) L 10/17/16 07:48 Total Bilirubin 0.2 mg/dL (0.1-1.2) 10/13/16 17:45 AST 43 units/L (5-40) H 10/13/16 17:45 ALT 5 units/L (7-56) L 10/13/16 17:45 Alkaline Phosphatase 66 units/L (35-129) 10/13/16 17:45 Troponin T 0.087 ng/mL (0.00-0.029) H 10/12/16 00:02 Total Protein 5.2 g/dL (6.3-8.2) L 10/13/16 17:45 Albumin 2.4 g/dL (3.9-5) L 10/13/16 17:45 Albumin/Globulin Ratio 0.9 % 10/13/16 17:45 Triglycerides 132 mg/dL (2-149) 10/12/16 00:02 Cholesterol 135 mg/dL (50-199) 10/12/16 00:02 LDL Cholesterol Direct 68 mg/dL (50-130) 10/12/16 00:02 HDL Cholesterol 41 mg/dL (40-59) 10/12/16 00:02 Cholesterol/HDL Ratio 3.29 % 10/12/16 00:02 Lipase 214 units/L (13-60) H 10/12/16 00:02 Urine Color Yellow (Yellow) 10/11/16 00:10 Urine Turbidity Clear (Clear) 10/11/16 00:10 Urine pH 5.0 (5.0-7.0) 10/11/16 00:10 Ur Specific [place] 1.011 (1.003-1.030) 10/11/16 00:10 Urine Protein 100 mg/dl mg/dL (Negative) 10/11/16 00:10 Urine Glucose (UA) Neg mg/dL (Negative) 10/11/16 00:10 Urine Ketones Tr mg/dL (Negative) 10/11/16 00:10 Urine Blood Sm (Negative) 10/11/16 00:10 Urine Nitrite Neg (Negative) 10/11/16 00:10 Urine Bilirubin Neg (Negative) 10/11/16 00:10 Urine Urobilinogen < 2.0 mg/dL (<2.0) 10/11/16 00:10 Ur Leukocyte Esterase Neg (Negative) 10/11/16 00:10 Urine WBC (Auto) 1.0 /HPF (0.0-6.0) 10/11/16 00:10 Urine RBC (Auto) < 1.0 /HPF (0.0-6.0) 10/11/16 00:10 U Epithel Cells (Auto) 5.0 /HPF (0-13.0) 10/11/16 00:10 Amorphous Crystals 1+ 10/11/16 00:10 Blood Type O POSITIVE 10/13/16 07:51 Antibody Screen Negative 10/13/16 07:51 Crossmatch See Detail 10/13/16 07:51
[2016-10-18] MEDS: NOVOLOG SUB-Q SCH ×5 (00:04→22:29)
[2016-10-18] MEDS: ULTRAM PO PRN ×3 (03:30→22:54)
--- NOTE | 2016-10-18 09:05 | Progress Note ---
Assessment and Plan Assessment and plan: 1. ESRD. Continue hemodialysis Friday, Friday and Friday. Nephrology following. 2. Severe metabolic acidosis. Resolved. 3. Malfunctioning IJ PermCath. Hemodialysis via right internal jugular PermCath exchange 10/16/16. 4. SIRS. No clear evidence of infection. Antibiotics have been discontinued. Patient has had negative cultures, chest x-ray and UA. 5. Deconditioned. Await placement. History Interval history: Patient complains of bilateral arm and lower extremity pain. Hospitalist Physical - Constitutional Vitals: Temp Pulse Resp BP Pulse Ox 98.9 F 109 H 18 166/79 97 10/18/16 08:03 10/18/16 08:03 10/18/16 08:03 10/18/16 08:03 10/18/16 08:03 General appearance: Present: no acute distress - EENT Eyes: Present: PERRL, EOM intact ENT: hearing intact, clear oral mucosa, dentition normal - Neck Neck: Present: supple, normal ROM - Respiratory Respiratory effort: normal Respiratory: bilateral: CTA - Cardiovascular Rhythm: regular Heart Sounds: Present: S1 & S2. Absent: gallop, rub - Extremities Extremities: no ischemia, No edema, Full ROM - Abdominal General gastrointestinal: soft, non-tender, non-distended, normal bowel sounds - Integumentary Integumentary: Present: clear, warm, dry - Neurologic Neurologic: CNII-XII intact, moves all extremities Results - Labs CBC & Chem 7: 10/16/16 06:31 10/17/16 07:48 Labs: Laboratory Last Values WBC 12.6 K/mm3 (4.5-11.0) H 10/16/16 06:31 RBC 3.13 M/mm3 (3.65-5.03) L 10/16/16 06:31 Hgb 9.0 gm/dl (10.1-14.3) L 10/16/16 06:31 Hct 27.1 % (30.3-42.9) L 10/16/16 06:31 MCV 87 fl (79-97) 10/16/16 06:31 MCH 29 pg (28-32) 10/16/16 06:31 MCHC 33 % (30-34) 10/16/16 06:31 RDW 14.0 % (13.2-15.2) 10/16/16 06:31 Plt Count 130 K/mm3 (140-440) L 10/16/16 06:31 Lymph % (Auto) 4.6 % (13.4-35.0) L 10/13/16 17:45 [place] % (Auto) 7.3 % (0.0-7.3) 10/13/16 17:45 Eos % (Auto) 0.3 % (0.0-4.3) 10/13/16 17:45 Baso % (Auto) 0.2 % (0.0-1.8) 10/13/16 17:45 Lymph # 0.3 K/mm3 (1.2-5.4) L 10/13/16 17:45 [place] # 0.5 K/mm3 (0.0-0.8) 10/13/16 17:45 Eos # 0.0 K/mm3 (0.0-0.4) 10/13/16 17:45 Baso # 0.0 K/mm3 (0.0-0.1) 10/13/16 17:45 Add Manual Diff Complete 10/16/16 06:31 Total Counted 100 10/16/16 06:31 Seg Neutrophils % Calibration Technician 10/16/16 06:31 Seg Neuts % (Manual) 93.0 % (40.0-70.0) H 10/16/16 06:31 Band Neutrophils % 1.0 % 10/16/16 06:31 Lymphocytes % (Manual) 4.0 % (13.4-35.0) L 10/16/16 06:31 Reactive Lymphs % (Man) 0 % 10/16/16 06:31 Monocytes % (Manual) 2.0 % (0.0-7.3) 10/16/16 06:31 Eosinophils % (Manual) 0 % (0.0-4.3) 10/16/16 06:31 Basophils % (Manual) 0 % (0.0-1.8) 10/16/16 06:31 Metamyelocytes % 0 % 10/16/16 06:31 Myelocytes % 0 % 10/16/16 06:31 Promyelocytes % 0 % 10/16/16 06:31 Blast Cells % 0 % 10/16/16 06:31 Nucleated RBC % Not Reportable 10/16/16 06:31 Seg Neutrophils # 6.0 K/mm3 (1.8-7.7) 10/13/16 17:45 Seg Neutrophils # Man 11.7 K/mm3 (1.8-7.7) H 10/16/16 06:31 Band Neutrophils # 0.1 K/mm3 10/16/16 06:31 Lymphocytes # (Manual) 0.5 K/mm3 (1.2-5.4) L 10/16/16 06:31 Abs React Lymphs (Man) 0.0 K/mm3 10/16/16 06:31 Monocytes # (Manual) 0.3 K/mm3 (0.0-0.8) 10/16/16 06:31 Eosinophils # (Manual) 0.0 K/mm3 (0.0-0.4) 10/16/16 06:31 Basophils # (Manual) 0.0 K/mm3 (0.0-0.1) 10/16/16 06:31 Metamyelocytes # 0.0 K/mm3 10/16/16 06:31 Myelocytes # 0.0 K/mm3 10/16/16 06:31 Promyelocytes # 0.0 K/mm3 10/16/16 06:31 Blast Cells # 0.0 K/mm3 10/16/16 06:31 WBC Morphology Not Reportable 10/16/16 06:31 Hypersegmented Neuts Not Reportable 10/16/16 06:31 Hyposegmented Neuts Not Reportable 10/16/16 06:31 Hypogranular Neuts Not Reportable 10/16/16 06:31 Smudge Cells Not Reportable 10/16/16 06:31 Toxic Granulation Not Reportable 10/16/16 06:31 Toxic Vacuolation Not Reportable 10/16/16 06:31 Dohle Bodies Not Reportable 10/16/16 06:31 Pelger-Huet Anomaly Not Reportable 10/16/16 06:31 Ladan Rods Not Reportable 10/16/16 06:31 Platelet Estimate Consistent w auto 10/16/16 06:31 Clumped Platelets Not Reportable 10/16/16 06:31 Plt Clumps, EDTA Not Reportable 10/16/16 06:31 Large Platelets Not Reportable 10/16/16 06:31 Giant Platelets Not Reportable 10/16/16 06:31 Platelet Satelliting Not Reportable 10/16/16 06:31 Plt Morphology Comment Not Reportable 10/16/16 06:31 RBC Morphology Not Reportable 10/16/16 06:31 Dimorphic RBCs Not Reportable 10/16/16 06:31 Polychromasia Not Reportable 10/16/16 06:31 Hypochromasia Not Reportable 10/16/16 06:31 Poikilocytosis Not Reportable 10/16/16 06:31 Anisocytosis 1+ 10/16/16 06:31 Microcytosis Not Reportable 10/16/16 06:31 Macrocytosis Not Reportable 10/16/16 06:31 Spherocytes Not Reportable 10/16/16 06:31 Pappenheimer Bodies Not Reportable 10/16/16 06:31 Sickle Cells Not Reportable 10/16/16 06:31 Target Cells Not Reportable 10/16/16 06:31 Tear Drop Cells Not Reportable 10/16/16 06:31 Ovalocytes Not Reportable 10/16/16 06:31 Stomatocytes Few 10/16/16 06:31 Helmet Cells Not Reportable 10/16/16 06:31 [place] Bodies Not Reportable 10/16/16 06:31 [place] Rings Not Reportable 10/16/16 06:31 [place] Cells Not Reportable 10/16/16 06:31 Bite Cells Not Reportable 10/16/16 06:31 Crenated Cell Not Reportable 10/16/16 06:31 Elliptocytes Not Reportable 10/16/16 06:31 Acanthocytes (Spur) Not Reportable 10/16/16 06:31 Rouleaux Not Reportable 10/16/16 06:31 Hemoglobin C Crystals Not Reportable 10/16/16 06:31 Schistocytes Not Reportable 10/16/16 06:31 Malaria parasites Not Reportable 10/16/16 06:31 Jhony Bodies Not Reportable 10/16/16 06:31 Hem Pathologist Commnt No 10/16/16 06:31 POC ABG pH 7.544 (7.35-7.45) H 10/12/16 21:17 POC ABG pCO2 29.4 (35-45) L 10/12/16 21:17 POC ABG pO2 110 (80-105) H 10/12/16 21:17 POC ABG HCO3 25.4 10/12/16 21:17 POC ABG Total CO2 26 10/12/16 21:17 POC ABG O2 Sat 99 10/12/16 21:17 POC ABG Base Excess 3 10/12/16 21:17 VBG pH 6.953 (7.320-7.420) L* 10/12/16 06:45 FiO2 32 % 10/12/16 21:17 Sodium 140 mmol/L (137-145) 10/17/16 07:48 Potassium 3.2 mmol/L (3.6-5.0) L D 10/17/16 07:48 Chloride 98.3 mmol/L (98-107) 10/17/16 07:48 Carbon Dioxide 24 mmol/L (22-30) 10/17/16 07:48 Anion Gap 21 mmol/L 10/17/16 07:48 BUN 17 mg/dL (7-17) 10/17/16 07:48 Creatinine 3.3 mg/dL (0.7-1.2) H 10/17/16 07:48 Estimated GFR 17 ml/min 10/17/16 07:48 BUN/Creatinine Ratio 5.15 % 10/17/16 07:48 Glucose 127 mg/dL (65-100) H 10/17/16 07:48 POC Glucose 136 (70-105) H 10/18/16 05:52 Lactic Acid 1.1 mmol/L (0.7-2.0) 10/14/16 11:20 Calcium 7.8 mg/dL (8.4-10.2) L 10/17/16 07:48 Total Bilirubin 0.2 mg/dL (0.1-1.2) 10/13/16 17:45 AST 43 units/L (5-40) H 10/13/16 17:45 ALT 5 units/L (7-56) L 10/13/16 17:45 Alkaline Phosphatase 66 units/L (35-129) 10/13/16 17:45 Troponin T 0.087 ng/mL (0.00-0.029) H 10/12/16 00:02 Total Protein 5.2 g/dL (6.3-8.2) L 10/13/16 17:45 Albumin 2.4 g/dL (3.9-5) L 10/13/16 17:45 Albumin/Globulin Ratio 0.9 % 10/13/16 17:45 Triglycerides 132 mg/dL (2-149) 10/12/16 00:02 Cholesterol 135 mg/dL (50-199) 10/12/16 00:02 LDL Cholesterol Direct 68 mg/dL (50-130) 10/12/16 00:02 HDL Cholesterol 41 mg/dL (40-59) 10/12/16 00:02 Cholesterol/HDL Ratio 3.29 % 10/12/16 00:02 Lipase 214 units/L (13-60) H 10/12/16 00:02 Urine Color Yellow (Yellow) 10/11/16 00:10 Urine Turbidity Clear (Clear) 10/11/16 00:10 Urine pH 5.0 (5.0-7.0) 10/11/16 00:10 Ur Specific [place] 1.011 (1.003-1.030) 10/11/16 00:10 Urine Protein 100 mg/dl mg/dL (Negative) 10/11/16 00:10 Urine Glucose (UA) Neg mg/dL (Negative) 10/11/16 00:10 Urine Ketones Tr mg/dL (Negative) 10/11/16 00:10 Urine Blood Sm (Negative) 10/11/16 00:10 Urine Nitrite Neg (Negative) 10/11/16 00:10 Urine Bilirubin Neg (Negative) 10/11/16 00:10 Urine Urobilinogen < 2.0 mg/dL (<2.0) 10/11/16 00:10 Ur Leukocyte Esterase Neg (Negative) 10/11/16 00:10 Urine WBC (Auto) 1.0 /HPF (0.0-6.0) 10/11/16 00:10 Urine RBC (Auto) < 1.0 /HPF (0.0-6.0) 10/11/16 00:10 U Epithel Cells (Auto) 5.0 /HPF (0-13.0) 10/11/16 00:10 Amorphous Crystals 1+ 10/11/16 00:10 Blood Type O POSITIVE 10/13/16 07:51 Antibody Screen Negative 10/13/16 07:51 Crossmatch See Detail 10/13/16 07:51
[2016-10-18] MEDS ORDERED: NACL 0.9 (PRIMING MACHINE ONLY DIALYSIS) MC ONE (11:52)
[2016-10-18] MEDS: HEPARIN IV PRN (13:17)
[2016-10-18] MEDS ORDERED: NACL 0.9% 100 ML IV PRN (13:31)
--- NOTE | 2016-10-18 13:32 | Progress Note ---
Assessment and Plan Impression: * End stage renal disease on HD MWF * Severe metabolic acidosis - resolved * Malfunctioning IJ permcath * Sepsis * Anemia secondary to ESRD * Hypokalemia Plan: * Hemodialysis MWF; UF as tolerated * HD via right internal jugular permcath - exchanged 10/16; femoral vas cath removed yesterday * Adjust K bath w/ dialysis - currently on 4k bath * Abx per primary team * Renal diet * Epogen for goal Hb 10-12 Subjective Date of service: 10/18/16 Principal diagnosis: SIRS Interval history: Patient seen on dialysis without complaint Objective - Vital Signs Vital signs: Vital Signs - 12hr 10/18/16 10/18/16 10/18/16 08:03 10:00 10:15 Temperature 98.9 F 98.2 F Pulse Rate 105 H 102 H Pulse Rate [ 109 H From Monitor] Respiratory 18 18 Rate Blood Pressure 174/97 157/88 Blood Pressure 166/79 [Left Arm] O2 Sat by Pulse 97 Oximetry 10/18/16 10/18/16 10/18/16 10:30 10:45 11:00 Temperature Pulse Rate 100 H 101 H 102 H Pulse Rate [ From Monitor] Respiratory Rate Blood Pressure 157/88 160/91 156/94 Blood Pressure [Left Arm] O2 Sat by Pulse Oximetry 10/18/16 10/18/16 10/18/16 11:15 11:30 11:45 Temperature Pulse Rate 100 H 100 H 104 H Pulse Rate [ From Monitor] Respiratory Rate Blood Pressure 155/90 161/93 159/92 Blood Pressure [Left Arm] O2 Sat by Pulse Oximetry 10/18/16 10/18/16 10/18/16 12:00 12:15 12:30 Temperature Pulse Rate 107 H 100 H 96 H Pulse Rate [ From Monitor] Respiratory Rate Blood Pressure 158/92 160/89 168/96 Blood Pressure [Left Arm] O2 Sat by Pulse Oximetry - General Appearance General appearance: well-developed, well-nourished EENT: other (left eye ecchymosis) Neck: no JVD Respiratory: Present: Clear to Ascultation Cardiology: regular, S1S2 Gastrointestinal: normal Integumentary: no rash, warm and dry Musculoskeletal: other (no edema) Psychiatric: mood/affect appropriate, cooperative - Lab 10/16/16 06:31 10/17/16 07:48 Most recent lab results Calcium 7.8 mg/dL (8.4-10.2) L 10/17/16 07:48
[2016-10-18] MEDS: COZAAR PO SCH (16:11)
[2016-10-18] MEDS: PEPCID PO SCH (16:15)
[2016-10-19] MEDS: NOVOLOG SUB-Q SCH ×3 (08:54→17:12)
--- NOTE | 2016-10-19 09:15 | XRay Report ---
RIGHT FOREARM TWO VIEWS : 10/18/16 16:20:00 CLINICAL: Pain and swelling. History of falling. FINDINGS: Mild osteopenia. No fracture or dislocation. Degenerative changes in the wrist. Calcifications versus radiopaque foreign bodies in the medial soft tissues of the midforearm. IMPRESSION: No bony injury.
--- NOTE | 2016-10-19 09:16 | XRay Report ---
RIGHT WRIST 2 VIEWS: 10/18/16 16:20:00 CLINICAL: Pain and swelling. FINDINGS: Osteopenia. No fracture or dislocation. Radiocarpal joint space narrowing. Degenerative cysts in several carpal bones and in the distal ulna. Normal soft tissues. IMPRESSION: No acute change.
--- NOTE | 2016-10-19 09:18 | XRay Report ---
RIGHT HAND 2 VIEWS: 10/18/16 16:20:00 CLINICAL: Pain and swelling. FINDINGS: Osteopenia. Degenerative changes in the wrist but minimal degenerative change in the hand. No fracture or dislocation. Soft tissue swelling of the second, third and fourth digits with greater swelling in the proximal portion of the index finger. Soft tissue swelling at the lateral aspect of the. No soft tissue air or foreign body. IMPRESSION: Soft tissue swelling and osteopenia. No fracture.
[2016-10-19 09:46] LABS: Basophils % (Auto) 0.1 % (0.0-1.8); Eosinophils % (Auto) 0.2 % (0.0-4.3); Hematocrit 26.1 % (30.3-42.9); Hemoglobin 8.5 gm/dl (10.1-14.3); Mean Corpuscular HGB Conc 33 % (30-34); Mean Corpuscular Hemoglobin 29 pg (28-32); Mean Corpuscular Volume 88 fl (79-97); Platelet Count 173 K/mm3 (140-440); Red Blood Count 2.98 M/mm3 (3.65-5.03); Red Cell Distribution Width 14.7 % (13.2-15.2); White Blood Count 12.4 K/mm3 (4.5-11.0)
--- NOTE | 2016-10-19 09:50 | Progress Note ---
Assessment and Plan Assessment and plan: 1. ESRD. Continue hemodialysis Friday, Friday and Friday. Nephrology following. 2. Severe metabolic acidosis. Resolved. 3. Malfunctioning IJ PermCath. Hemodialysis via right internal jugular PermCath exchange 10/16/16. 4. SIRS. No clear evidence of infection. Antibiotics have been discontinued. Patient has had negative cultures, chest x-ray and UA. 5. Right hand/wrist swelling. ? Cellulitis. No reports of trauma. We'll start antibiotics. Uric acid level normal. Hand and wrist plain films are pending. Orthopedics consultation pending. History Interval history: Patient complains of right wrist and hand pain. Patient reports more swelling and tenderness. Hospitalist Physical - Constitutional Vitals: Temp Pulse Resp BP Pulse Ox 100.1 F H 117 H 20 153/86 96 10/19/16 08:10 10/19/16 08:10 10/19/16 08:10 10/19/16 08:10 10/19/16 08:10 General appearance: Present: no acute distress - EENT Eyes: Present: PERRL, EOM intact ENT: hearing intact, clear oral mucosa, dentition normal - Neck Neck: Present: supple, normal ROM - Respiratory Respiratory effort: normal Respiratory: bilateral: CTA - Cardiovascular Rhythm: regular Heart Sounds: Present: S1 & S2. Absent: gallop, rub - Extremities Extremities: no ischemia, Full ROM Extremity abnormal: edema (Right hand and wrist), erythema - Abdominal General gastrointestinal: soft, non-tender, non-distended, normal bowel sounds - Integumentary Integumentary: Present: clear, warm, dry - Neurologic Neurologic: CNII-XII intact, moves all extremities Results - Labs CBC & Chem 7: 10/19/16 09:01 10/17/16 07:48 Labs: Laboratory Last Values WBC 12.4 K/mm3 (4.5-11.0) H 10/19/16 09:01 RBC 2.98 M/mm3 (3.65-5.03) L 10/19/16 09:01 Hgb 8.5 gm/dl (10.1-14.3) L 10/19/16 09:01 Hct 26.1 % (30.3-42.9) L 10/19/16 09:01 MCV 88 fl (79-97) 10/19/16 09:01 MCH 29 pg (28-32) 10/19/16 09:01 MCHC 33 % (30-34) 10/19/16 09:01 RDW 14.7 % (13.2-15.2) 10/19/16 09:01 Plt Count 173 K/mm3 (140-440) 10/19/16 09:01 Lymph % (Auto) 5.6 % (13.4-35.0) L 10/19/16 09:01 [place] % (Auto) 7.5 % (0.0-7.3) H 10/19/16 09:01 Eos % (Auto) 0.2 % (0.0-4.3) 10/19/16 09:01 Baso % (Auto) 0.1 % (0.0-1.8) 10/19/16 09:01 Lymph # 0.7 K/mm3 (1.2-5.4) L 10/19/16 09:01 [place] # 0.9 K/mm3 (0.0-0.8) H 10/19/16 09:01 Eos # 0.0 K/mm3 (0.0-0.4) 10/19/16 09:01 Baso # 0.0 K/mm3 (0.0-0.1) 10/19/16 09:01 Add Manual Diff Complete 10/16/16 06:31 Total Counted 100 10/16/16 06:31 Seg Neutrophils % 86.6 % (40.0-70.0) H 10/19/16 09:01 Seg Neuts % (Manual) 93.0 % (40.0-70.0) H 10/16/16 06:31 Band Neutrophils % 1.0 % 10/16/16 06:31 Lymphocytes % (Manual) 4.0 % (13.4-35.0) L 10/16/16 06:31 Reactive Lymphs % (Man) 0 % 10/16/16 06:31 Monocytes % (Manual) 2.0 % (0.0-7.3) 10/16/16 06:31 Eosinophils % (Manual) 0 % (0.0-4.3) 10/16/16 06:31 Basophils % (Manual) 0 % (0.0-1.8) 10/16/16 06:31 Metamyelocytes % 0 % 10/16/16 06:31 Myelocytes % 0 % 10/16/16 06:31 Promyelocytes % 0 % 10/16/16 06:31 Blast Cells % 0 % 10/16/16 06:31 Nucleated RBC % Not Reportable 10/16/16 06:31 Seg Neutrophils # 10.8 K/mm3 (1.8-7.7) H 10/19/16 09:01 Seg Neutrophils # Man 11.7 K/mm3 (1.8-7.7) H 10/16/16 06:31 Band Neutrophils # 0.1 K/mm3 10/16/16 06:31 Lymphocytes # (Manual) 0.5 K/mm3 (1.2-5.4) L 10/16/16 06:31 Abs React Lymphs (Man) 0.0 K/mm3 10/16/16 06:31 Monocytes # (Manual) 0.3 K/mm3 (0.0-0.8) 10/16/16 06:31 Eosinophils # (Manual) 0.0 K/mm3 (0.0-0.4) 10/16/16 06:31 Basophils # (Manual) 0.0 K/mm3 (0.0-0.1) 10/16/16 06:31 Metamyelocytes # 0.0 K/mm3 10/16/16 06:31 Myelocytes # 0.0 K/mm3 10/16/16 06:31 Promyelocytes # 0.0 K/mm3 10/16/16 06:31 Blast Cells # 0.0 K/mm3 10/16/16 06:31 WBC Morphology Not Reportable 10/16/16 06:31 Hypersegmented Neuts Not Reportable 10/16/16 06:31 Hyposegmented Neuts Not Reportable 10/16/16 06:31 Hypogranular Neuts Not Reportable 10/16/16 06:31 Smudge Cells Not Reportable 10/16/16 06:31 Toxic Granulation Not Reportable 10/16/16 06:31 Toxic Vacuolation Not Reportable 10/16/16 06:31 Dohle Bodies Not Reportable 10/16/16 06:31 Pelger-Huet Anomaly Not Reportable 10/16/16 06:31 Ladan Rods Not Reportable 10/16/16 06:31 Platelet Estimate Consistent w auto 10/16/16 06:31 Clumped Platelets Not Reportable 10/16/16 06:31 Plt Clumps, EDTA Not Reportable 10/16/16 06:31 Large Platelets Not Reportable 10/16/16 06:31 Giant Platelets Not Reportable 10/16/16 06:31 Platelet Satelliting Not Reportable 10/16/16 06:31 Plt Morphology Comment Not Reportable 10/16/16 06:31 RBC Morphology Not Reportable 10/16/16 06:31 Dimorphic RBCs Not Reportable 10/16/16 06:31 Polychromasia Not Reportable 10/16/16 06:31 Hypochromasia Not Reportable 10/16/16 06:31 Poikilocytosis Not Reportable 10/16/16 06:31 Anisocytosis 1+ 10/16/16 06:31 Microcytosis Not Reportable 10/16/16 06:31 Macrocytosis Not Reportable 10/16/16 06:31 Spherocytes Not Reportable 10/16/16 06:31 Pappenheimer Bodies Not Reportable 10/16/16 06:31 Sickle Cells Not Reportable 10/16/16 06:31 Target Cells Not Reportable 10/16/16 06:31 Tear Drop Cells Not Reportable 10/16/16 06:31 Ovalocytes Not Reportable 10/16/16 06:31 Stomatocytes Few 10/16/16 06:31 Helmet Cells Not Reportable 10/16/16 06:31 [place] Bodies Not Reportable 10/16/16 06:31 [place] Rings Not Reportable 10/16/16 06:31 [place] Cells Not Reportable 10/16/16 06:31 Bite Cells Not Reportable 10/16/16 06:31 Crenated Cell Not Reportable 10/16/16 06:31 Elliptocytes Not Reportable 10/16/16 06:31 Acanthocytes (Spur) Not Reportable 10/16/16 06:31 Rouleaux Not Reportable 10/16/16 06:31 Hemoglobin C Crystals Not Reportable 10/16/16 06:31 Schistocytes Not Reportable 10/16/16 06:31 Malaria parasites Not Reportable 10/16/16 06:31 Jhony Bodies Not Reportable 10/16/16 06:31 Hem Pathologist Commnt No 10/16/16 06:31 POC ABG pH 7.544 (7.35-7.45) H 10/12/16 21:17 POC ABG pCO2 29.4 (35-45) L 10/12/16 21:17 POC ABG pO2 110 (80-105) H 10/12/16 21:17 POC ABG HCO3 25.4 10/12/16 21:17 POC ABG Total CO2 26 10/12/16 21:17 POC ABG O2 Sat 99 10/12/16 21:17 POC ABG Base Excess 3 10/12/16 21:17 VBG pH 6.953 (7.320-7.420) L* 10/12/16 06:45 FiO2 32 % 10/12/16 21:17 Sodium 140 mmol/L (137-145) 10/17/16 07:48 Potassium 3.2 mmol/L (3.6-5.0) L D 10/17/16 07:48 Chloride 98.3 mmol/L (98-107) 10/17/16 07:48 Carbon Dioxide 24 mmol/L (22-30) 10/17/16 07:48 Anion Gap 21 mmol/L 10/17/16 07:48 BUN 17 mg/dL (7-17) 10/17/16 07:48 Creatinine 3.3 mg/dL (0.7-1.2) H 10/17/16 07:48 Estimated GFR 17 ml/min 10/17/16 07:48 BUN/Creatinine Ratio 5.15 % 10/17/16 07:48 Glucose 127 mg/dL (65-100) H 10/17/16 07:48 POC Glucose 146 (70-105) H 10/19/16 06:51 Lactic Acid 1.1 mmol/L (0.7-2.0) 10/14/16 11:20 Uric Acid 2.9 mg/dL (3.5-7.6) L 10/18/16 17:04 Calcium 7.8 mg/dL (8.4-10.2) L 10/17/16 07:48 Total Bilirubin 0.2 mg/dL (0.1-1.2) 10/13/16 17:45 AST 43 units/L (5-40) H 10/13/16 17:45 ALT 5 units/L (7-56) L 10/13/16 17:45 Alkaline Phosphatase 66 units/L (35-129) 10/13/16 17:45 Troponin T 0.087 ng/mL (0.00-0.029) H 10/12/16 00:02 Total Protein 5.2 g/dL (6.3-8.2) L 10/13/16 17:45 Albumin 2.4 g/dL (3.9-5) L 10/13/16 17:45 Albumin/Globulin Ratio 0.9 % 10/13/16 17:45 Triglycerides 132 mg/dL (2-149) 10/12/16 00:02 Cholesterol 135 mg/dL (50-199) 10/12/16 00:02 LDL Cholesterol Direct 68 mg/dL (50-130) 10/12/16 00:02 HDL Cholesterol 41 mg/dL (40-59) 10/12/16 00:02 Cholesterol/HDL Ratio 3.29 % 10/12/16 00:02 Lipase 214 units/L (13-60) H 10/12/16 00:02 Urine Color Yellow (Yellow) 10/11/16 00:10 Urine Turbidity Clear (Clear) 10/11/16 00:10 Urine pH 5.0 (5.0-7.0) 10/11/16 00:10 Ur Specific [place] 1.011 (1.003-1.030) 10/11/16 00:10 Urine Protein 100 mg/dl mg/dL (Negative) 10/11/16 00:10 Urine Glucose (UA) Neg mg/dL (Negative) 10/11/16 00:10 Urine Ketones Tr mg/dL (Negative) 10/11/16 00:10 Urine Blood Sm (Negative) 10/11/16 00:10 Urine Nitrite Neg (Negative) 10/11/16 00:10 Urine Bilirubin Neg (Negative) 10/11/16 00:10 Urine Urobilinogen < 2.0 mg/dL (<2.0) 10/11/16 00:10 Ur Leukocyte Esterase Neg (Negative) 10/11/16 00:10 Urine WBC (Auto) 1.0 /HPF (0.0-6.0) 10/11/16 00:10 Urine RBC (Auto) < 1.0 /HPF (0.0-6.0) 10/11/16 00:10 U Epithel Cells (Auto) 5.0 /HPF (0-13.0) 10/11/16 00:10 Amorphous Crystals 1+ 10/11/16 00:10 Blood Type O POSITIVE 10/13/16 07:51 Antibody Screen Negative 10/13/16 07:51 Crossmatch See Detail 10/13/16 07:51
[2016-10-19 09:52] LABS: BUN/Creatinine Ratio 5.16; Calcium 8.4 mg/dL (8.4-10.2); Chloride 98.4 mmol/L (98-107); Potassium 4.2 mmol/L (3.6-5.0)
[2016-10-19] MEDS ORDERED: LEVAQUIN 500MG/100ML 500 MG/100 ML BAG IV SCH (10:00)
[2016-10-19] MEDS: COZAAR PO SCH (10:51)
[2016-10-19] MEDS: PEPCID PO SCH (10:52)
[2016-10-19] MEDS: ULTRAM PO PRN ×2 (11:02→17:21)
[2016-10-19] MEDS ORDERED: LEVAQUIN 500MG/100ML 500 MG/100 ML BAG IV ONE (12:00)
--- NOTE | 2016-10-19 13:16 | Progress Note ---
Assessment and Plan mpression: * End stage renal disease on HD MWF * Severe metabolic acidosis - resolved * Malfunctioning IJ permcath * Sepsis * Anemia secondary to ESRD * Hypokalemia Plan: * Hemodialysis MWF; UF as tolerated * HD via right internal jugular permcath - exchanged 10/16 * Adjust K bath w/ dialysis * Abx per primary team * Renal diet * Epogen for goal Hb 10-12 * stable for dc from renal standpoint Subjective Date of service: 10/19/16 Principal diagnosis: SIRS Interval history: resting well in bed today Objective - Exam Narrative Exam: - General Appearance General appearance: well-developed, well-nourished EENT: other (left eye ecchymosis) Neck: no JVD Respiratory: Present: Clear to Ascultation Cardiology: regular, S1S2 Gastrointestinal: normal Integumentary: no rash, warm and dry Musculoskeletal: other (no edema) Psychiatric: mood/affect appropriate, cooperative - Vital Signs Vital signs: Vital Signs - 12hr 10/19/16 10/19/16 10/19/16 08:10 10:51 12:22 Temperature 100.1 F H 99.3 F Pulse Rate 117 H Pulse Rate [ 117 H 117 H Left Radial] Respiratory 20 20 Rate Blood Pressure 153/86 Blood Pressure 153/86 182/98 [Left Arm] O2 Sat by Pulse 96 96 Oximetry - Lab 10/19/16 09:01 10/19/16 09:01 Most recent lab results Calcium 8.4 mg/dL (8.4-10.2) 10/19/16 09:01
--- NOTE | 2016-10-19 14:09 | Progress Note ---
Assessment and Plan - Patient Problems (1) Lactic acidosis Current Visit: Yes Status: Acute (2) Septic shock Current Visit: Yes Status: Acute (3) Acute on chronic renal failure Current Visit: No Status: Acute (4) End stage renal disease Current Visit: No Status: Acute (5) Mental status, decreased Current Visit: No Status: Acute (6) Physical deconditioning Current Visit: Yes Status: Acute Subjective Principal diagnosis: SIRS Interval history: awake Objective Vital Signs - 12hr 10/19/16 10/19/16 10/19/16 08:10 10:51 12:22 Temperature 100.1 F H 99.3 F Pulse Rate 117 H Pulse Rate [ 117 H 117 H Left Radial] Respiratory 20 20 Rate Blood Pressure 153/86 Blood Pressure 153/86 182/98 [Left Arm] O2 Sat by Pulse 96 96 Oximetry Constitutional: no acute distress, alert Eyes: non-icteric ENT: oropharynx moist Neck: supple Effort: normal Ascultation: Bilateral: clear Cardiovascular: regular rate and rhythm (no mrg) Gastrointestinal: normoactive bowel sounds, soft, non-tender, non-distended Integumentary: normal Extremities: no cyanosis, no edema, pink and warm Neurologic: normal mental status, non-focal exam, pupils equal and round, CN II- XII normal Psychiatric: mood appropriate, affect normal CBC and BMP: 10/19/16 09:01 10/19/16 09:01 ABG, PT/INR, D-dimer: ABG POC ABG pH 7.544 (7.35-7.45) H 10/12/16 21:17 POC ABG pCO2 29.4 (35-45) L 10/12/16 21:17 POC ABG pO2 110 (80-105) H 10/12/16 21:17 POC ABG HCO3 25.4 10/12/16 21:17 POC ABG Total CO2 26 10/12/16 21:17 POC ABG O2 Sat 99 10/12/16 21:17 Abnormal lab findings: Abnormal Labs 10/12/16 10/12/16 10/12/16 06:39 06:45 06:45 WBC RBC Hgb Hct Plt Count Lymph % (Auto) [place] % (Auto) Lymph # [place] # Seg Neutrophils % Seg Neuts % (Manual) Lymphocytes % (Manual) Seg Neutrophils # Seg Neutrophils # Man Lymphocytes # (Manual) POC ABG pH POC ABG pCO2 POC ABG pO2 VBG pH 6.953 L* Potassium Chloride Carbon Dioxide BUN Creatinine Glucose POC Glucose 378 H 365 H Lactic Acid Uric Acid Calcium AST ALT Total Protein Albumin Crossmatch 10/12/16 10/12/16 10/12/16 07:51 08:05 08:05 WBC RBC Hgb Hct Plt Count Lymph % (Auto) [place] % (Auto) Lymph # [place] # Seg Neutrophils % Seg Neuts % (Manual) Lymphocytes % (Manual) Seg Neutrophils # Seg Neutrophils # Man Lymphocytes # (Manual) POC ABG pH POC ABG pCO2 POC ABG pO2 VBG pH Potassium 6.0 H Chloride 81.9 L Carbon Dioxide 3 L* BUN 52 H Creatinine 8.6 H Glucose 320 H POC Glucose 298 H Lactic Acid 22.7 H* Uric Acid Calcium AST ALT < 5 L Total Protein Albumin 2.7 L Crossmatch 10/12/16 10/12/16 10/12/16 08:42 11:13 12:24 WBC RBC Hgb Hct Plt Count Lymph % (Auto) [place] % (Auto) Lymph # [place] # Seg Neutrophils % Seg Neuts % (Manual) Lymphocytes % (Manual) Seg Neutrophils # Seg Neutrophils # Man Lymphocytes # (Manual) POC ABG pH 7.080 L POC ABG pCO2 13.8 L POC ABG pO2 155 H VBG pH Potassium Chloride Carbon Dioxide BUN Creatinine Glucose POC Glucose 281 H 256 H Lactic Acid Uric Acid Calcium AST ALT Total Protein Albumin Crossmatch 10/12/16 10/12/16 10/12/16 14:06 17:18 19:08 WBC RBC Hgb Hct Plt Count Lymph % (Auto) [place] % (Auto) Lymph # [place] # Seg Neutrophils % Seg Neuts % (Manual) Lymphocytes % (Manual) Seg Neutrophils # Seg Neutrophils # Man Lymphocytes # (Manual) POC ABG pH POC ABG pCO2 POC ABG pO2 VBG pH Potassium Chloride Carbon Dioxide BUN Creatinine Glucose POC Glucose 279 H 281 H Lactic Acid 4.1 H* Uric Acid Calcium AST ALT Total Protein Albumin Crossmatch 10/12/16 10/12/16 10/12/16 21:13 21:17 22:43 WBC RBC Hgb 6.6 L Hct 21.2 L D Plt Count Lymph % (Auto) [place] % (Auto) Lymph # [place] # Seg Neutrophils % Seg Neuts % (Manual) Lymphocytes % (Manual) Seg Neutrophils # Seg Neutrophils # Man Lymphocytes # (Manual) POC ABG pH 7.544 H POC ABG pCO2 29.4 L POC ABG pO2 110 H VBG pH Potassium 3.3 L D Chloride 94.4 L Carbon Dioxide BUN Creatinine 2.1 H D Glucose 222 H POC Glucose Lactic Acid Uric Acid Calcium 7.6 L D AST ALT Total Protein Albumin Crossmatch 10/12/16 10/13/16 10/13/16 23:48 00:25 02:07 WBC RBC Hgb Hct Plt Count Lymph % (Auto) [place] % (Auto) Lymph # [place] # Seg Neutrophils % Seg Neuts % (Manual) Lymphocytes % (Manual) Seg Neutrophils # Seg Neutrophils # Man Lymphocytes # (Manual) POC ABG pH POC ABG pCO2 POC ABG pO2 VBG pH Potassium Chloride Carbon Dioxide BUN Creatinine Glucose POC Glucose 237 H 173 H Lactic Acid 2.7 H* Uric Acid Calcium AST ALT Total Protein Albumin Crossmatch 10/13/16 10/13/16 10/13/16 04:21 07:51 09:46 WBC RBC Hgb Hct Plt Count Lymph % (Auto) [place] % (Auto) Lymph # [place] # Seg Neutrophils % Seg Neuts % (Manual) Lymphocytes % (Manual) Seg Neutrophils # Seg Neutrophils # Man Lymphocytes # (Manual) POC ABG pH POC ABG pCO2 POC ABG pO2 VBG pH Potassium Chloride Carbon Dioxide BUN Creatinine Glucose POC Glucose 177 H 195 H Lactic Acid Uric Acid Calcium AST ALT Total Protein Albumin Crossmatch See Detail 10/13/16 10/13/16 10/13/16 11:59 15:30 17:45 WBC RBC 2.02 L Hgb 5.7 L* Hct 17.8 L* Plt Count Lymph % (Auto) 4.6 L [place] % (Auto) Lymph # 0.3 L [place] # Seg Neutrophils % 87.6 H Seg Neuts % (Manual) Lymphocytes % (Manual) Seg Neutrophils # Seg Neutrophils # Man Lymphocytes # (Manual) POC ABG pH POC ABG pCO2 POC ABG pO2 VBG pH Potassium Chloride Carbon Dioxide BUN Creatinine Glucose POC Glucose 177 H 145 H Lactic Acid Uric Acid Calcium AST ALT Total Protein Albumin Crossmatch 10/13/16 10/13/16 10/14/16 17:45 21:57 06:07 WBC RBC Hgb Hct Plt Count Lymph % (Auto) [place] % (Auto) Lymph # [place] # Seg Neutrophils % Seg Neuts % (Manual) Lymphocytes % (Manual) Seg Neutrophils # Seg Neutrophils # Man Lymphocytes # (Manual) POC ABG pH POC ABG pCO2 POC ABG pO2 VBG pH Potassium 2.5 L* D Chloride 96.0 L Carbon Dioxide BUN 20 H Creatinine 3.6 H D Glucose 132 H POC Glucose 142 H 112 H Lactic Acid Uric Acid Calcium 7.1 L AST 43 H ALT 5 L Total Protein 5.2 L Albumin 2.4 L Crossmatch 10/14/16 10/14/16 10/14/16 11:20 11:20 14:02 WBC RBC 2.96 L Hgb 8.5 L Hct 25.9 L D Plt Count 123 L Lymph % (Auto) [place] % (Auto) Lymph # [place] # Seg Neutrophils % Seg Neuts % (Manual) Lymphocytes % (Manual) Seg Neutrophils # Seg Neutrophils # Man Lymphocytes # (Manual) POC ABG pH POC ABG pCO2 POC ABG pO2 VBG pH Potassium 2.4 L* Chloride Carbon Dioxide BUN 27 H Creatinine 4.6 H Glucose 105 H POC Glucose 122 H Lactic Acid Uric Acid Calcium 7.2 L AST ALT Total Protein Albumin Crossmatch 10/14/16 10/15/16 10/15/16 18:15 03:06 03:48 WBC RBC Hgb Hct Plt Count Lymph % (Auto) [place] % (Auto) Lymph # [place] # Seg Neutrophils % Seg Neuts % (Manual) Lymphocytes % (Manual) Seg Neutrophils # Seg Neutrophils # Man Lymphocytes # (Manual) POC ABG pH POC ABG pCO2 POC ABG pO2 VBG pH Potassium Chloride Carbon Dioxide BUN Creatinine Glucose POC Glucose 137 H 121 H 124 H Lactic Acid Uric Acid Calcium AST ALT Total Protein Albumin Crossmatch 10/15/16 10/15/16 10/15/16 06:47 16:52 20:20 WBC RBC Hgb Hct Plt Count Lymph % (Auto) [place] % (Auto) Lymph # [place] # Seg Neutrophils % Seg Neuts % (Manual) Lymphocytes % (Manual) Seg Neutrophils # Seg Neutrophils # Man Lymphocytes # (Manual) POC ABG pH POC ABG pCO2 POC ABG pO2 VBG pH Potassium 2.5 L* Chloride Carbon Dioxide BUN Creatinine Glucose POC Glucose 112 H 180 H Lactic Acid Uric Acid Calcium AST ALT Total Protein Albumin Crossmatch 10/15/16 10/16/16 10/16/16 22:06 06:16 06:31 WBC 12.6 H RBC 3.13 L Hgb 9.0 L Hct 27.1 L Plt Count 130 L Lymph % (Auto) [place] % (Auto) Lymph # [place] # Seg Neutrophils % Seg Neuts % (Manual) 93.0 H Lymphocytes % (Manual) 4.0 L Seg Neutrophils # Seg Neutrophils # Man 11.7 H Lymphocytes # (Manual) 0.5 L POC ABG pH POC ABG pCO2 POC ABG pO2 VBG pH Potassium Chloride Carbon Dioxide BUN Creatinine Glucose POC Glucose 223 H 127 H Lactic Acid Uric Acid Calcium AST ALT Total Protein Albumin Crossmatch 10/16/16 10/16/16 10/16/16 06:31 17:02 21:08 WBC RBC Hgb Hct Plt Count Lymph % (Auto) [place] % (Auto) Lymph # [place] # Seg Neutrophils % Seg Neuts % (Manual) Lymphocytes % (Manual) Seg Neutrophils # Seg Neutrophils # Man Lymphocytes # (Manual) POC ABG pH POC ABG pCO2 POC ABG pO2 VBG pH Potassium 2.4 L* Chloride 96.3 L Carbon Dioxide BUN 23 H Creatinine 3.7 H Glucose 129 H POC Glucose 133 H 145 H Lactic Acid Uric Acid Calcium 7.1 L AST ALT Total Protein Albumin Crossmatch 10/17/16 10/17/16 10/17/16 06:54 07:48 10:00 WBC RBC Hgb Hct Plt Count Lymph % (Auto) [place] % (Auto) Lymph # [place] # Seg Neutrophils % Seg Neuts % (Manual) Lymphocytes % (Manual) Seg Neutrophils # Seg Neutrophils # Man Lymphocytes # (Manual) POC ABG pH POC ABG pCO2 POC ABG pO2 VBG pH Potassium 3.2 L D Chloride Carbon Dioxide BUN Creatinine 3.3 H Glucose 127 H POC Glucose 124 H 191 H Lactic Acid Uric Acid Calcium 7.8 L AST ALT Total Protein Albumin Crossmatch 10/17/16 10/17/16 10/18/16 16:20 22:51 05:52 WBC RBC Hgb Hct Plt Count Lymph % (Auto) [place] % (Auto) Lymph # [place] # Seg Neutrophils % Seg Neuts % (Manual) Lymphocytes % (Manual) Seg Neutrophils # Seg Neutrophils # Man Lymphocytes # (Manual) POC ABG pH POC ABG pCO2 POC ABG pO2 VBG pH Potassium Chloride Carbon Dioxide BUN Creatinine Glucose POC Glucose 183 H 176 H 136 H Lactic Acid Uric Acid Calcium AST ALT Total Protein Albumin Crossmatch 10/18/16 10/18/16 10/18/16 16:25 17:04 21:10 WBC RBC Hgb Hct Plt Count Lymph % (Auto) [place] % (Auto) Lymph # [place] # Seg Neutrophils % Seg Neuts % (Manual) Lymphocytes % (Manual) Seg Neutrophils # Seg Neutrophils # Man Lymphocytes # (Manual) POC ABG pH POC ABG pCO2 POC ABG pO2 VBG pH Potassium Chloride Carbon Dioxide BUN Creatinine Glucose POC Glucose 170 H 137 H Lactic Acid Uric Acid 2.9 L Calcium AST ALT Total Protein Albumin Crossmatch 10/19/16 10/19/16 10/19/16 06:51 09:01 09:01 WBC 12.4 H RBC 2.98 L Hgb 8.5 L Hct 26.1 L Plt Count Lymph % (Auto) 5.6 L [place] % (Auto) 7.5 H Lymph # 0.7 L [place] # 0.9 H Seg Neutrophils % 86.6 H Seg Neuts % (Manual) Lymphocytes % (Manual) Seg Neutrophils # 10.8 H Seg Neutrophils # Man Lymphocytes # (Manual) POC ABG pH POC ABG pCO2 POC ABG pO2 VBG pH Potassium Chloride Carbon Dioxide BUN Creatinine 3.1 H Glucose 132 H POC Glucose 146 H Lactic Acid Uric Acid Calcium AST ALT Total Protein Albumin Crossmatch 10/19/16 11:37 WBC RBC Hgb Hct Plt Count Lymph % (Auto) [place] % (Auto) Lymph # [place] # Seg Neutrophils % Seg Neuts % (Manual) Lymphocytes % (Manual) Seg Neutrophils # Seg Neutrophils # Man Lymphocytes # (Manual) POC ABG pH POC ABG pCO2 POC ABG pO2 VBG pH Potassium Chloride Carbon Dioxide BUN Creatinine Glucose POC Glucose 163 H Lactic Acid Uric Acid Calcium AST ALT Total Protein Albumin Crossmatch
[2016-10-20] MEDS: NOVOLOG SUB-Q SCH ×5 (01:33→22:00)
--- NOTE | 2016-10-20 05:28 | Consultation ---
REASON FOR CONSULTATION: Right hand swelling. BRIEF HISTORY: The patient is a 66-year-old female who is being admitted to the hospital secondary to multiple medical issues who consultation was carried out today secondary to patient is being seen with a swollen hand on the right. Discussion with the patient was done the patient had an IV on the hand the day before this evaluation. PHYSICAL EXAMINATION: Today demonstrates an alert and oriented female, who on exam demonstrates a swollen hand on the right with slight swelling deformed. There is a puncture wound on the hand that appears to be doing well. There is soft tissue swelling basically in the soft tissues and dorsum of the hand. The patient has limited flexion, extension and motion of the finger secondary to that. There is no redness, no erythema, and no other abnormalities. IMPRESSION: I believe the symptoms of the patient are secondary to using IV and secondary inflammation. At the present time, I do not believe the patient requires anything specific for this problem. JOB# [id number] MAXIMO/JAYDEN CLAY
[2016-10-20 07:00] LABS: Basophils % (Auto) 0.1 % (0.0-1.8); Eosinophils % (Auto) 0.2 % (0.0-4.3); Hematocrit 25.6 % (30.3-42.9); Hemoglobin 8.3 gm/dl (10.1-14.3); Mean Corpuscular HGB Conc 33 % (30-34); Mean Corpuscular Hemoglobin 29 pg (28-32); Mean Corpuscular Volume 88 fl (79-97); Platelet Count 181 K/mm3 (140-440); Red Blood Count 2.91 M/mm3 (3.65-5.03); Red Cell Distribution Width 14.8 % (13.2-15.2); White Blood Count 12.9 K/mm3 (4.5-11.0)
[2016-10-20 07:24] LABS: BUN/Creatinine Ratio 7.56; Calcium 8.4 mg/dL (8.4-10.2); Chloride 99.5 mmol/L (98-107); Potassium 4.3 mmol/L (3.6-5.0)
--- NOTE | 2016-10-20 08:01 | Progress Note ---
Assessment and Plan mpression: * End stage renal disease on HD MWF * Severe metabolic acidosis - resolved * Malfunctioning IJ permcath * Sepsis * Anemia secondary to ESRD * Hypokalemia Plan: * Hemodialysis MWF; UF as tolerated * HD via right internal jugular permcath - exchanged 10/16 * Adjust K bath w/ dialysis * Abx per primary team * Renal diet * Epogen for goal Hb 10-12 * stable for dc from renal standpoint * pt/ot to eval and treat, numerous complaints Subjective Date of service: 10/20/16 Principal diagnosis: SIRS Interval history: resting well in bed today Objective - Exam Narrative Exam: - General Appearance General appearance: well-developed, well-nourished EENT: other (left eye ecchymosis) Neck: no JVD Respiratory: Present: Clear to Ascultation Cardiology: regular, S1S2 Gastrointestinal: normal Integumentary: no rash, warm and dry Musculoskeletal: other (no edema) Psychiatric: mood/affect appropriate, cooperative - Vital Signs Vital signs: Vital Signs - 12hr 10/19/16 10/20/16 10/20/16 20:15 00:08 04:27 Temperature 98.9 F 98.6 F 98.2 F Pulse Rate [ 119 H 117 H Left Radial] Pulse Rate [ 118 H Right Radial] Respiratory 18 18 20 Rate Blood Pressure 168/93 173/87 147/96 [Left Arm] O2 Sat by Pulse 98 98 98 Oximetry - Lab 10/20/16 06:33 10/20/16 06:33 Most recent lab results Calcium 8.4 mg/dL (8.4-10.2) 10/20/16 06:33
--- NOTE | 2016-10-20 08:52 | Progress Note ---
Assessment and Plan Assessment and plan: 1. ESRD. Continue hemodialysis Friday, Friday and Friday. Nephrology following. 2. Severe metabolic acidosis. Resolved. 3. Malfunctioning IJ PermCath. Hemodialysis via right internal jugular PermCath exchange 10/16/16. 4. SIRS. No clear evidence of infection. Patient has had negative cultures, chest x-ray and UA. 5. Right hand/wrist swelling. ? Cellulitis. No reports of trauma. Continue antibiotics for now. Uric acid level normal. Hand and wrist plain films only revealed soft tissue swelling. No other abnormalities. I discussed the case with Dr. Nuñez yesterday--Orthopedics consultation pending. 6. Dysphagia. Speech evaluation. History Interval history: Patient still complains of right wrist and hand pain. Nursing reports patient with some difficulty swallowing yesterday afternoon and evening. Hospitalist Physical - Constitutional Vitals: Temp Pulse Resp BP Pulse Ox 101.1 F H 117 H 22 163/87 99 10/20/16 08:15 10/20/16 08:15 10/20/16 08:15 10/20/16 08:15 10/20/16 08:15 General appearance: Present: no acute distress - EENT Eyes: Present: PERRL, EOM intact ENT: hearing intact, clear oral mucosa, dentition normal - Neck Neck: Present: supple, normal ROM - Respiratory Respiratory effort: normal Respiratory: bilateral: CTA - Cardiovascular Rhythm: regular Heart Sounds: Present: S1 & S2. Absent: gallop, rub - Extremities Extremities: no ischemia, Full ROM Extremity abnormal: edema (right hand and wrist pain) - Abdominal General gastrointestinal: soft, non-tender, non-distended, normal bowel sounds - Integumentary Integumentary: Present: clear, warm, dry - Neurologic Neurologic: CNII-XII intact, moves all extremities Results - Labs CBC & Chem 7: 10/20/16 06:33 10/20/16 06:33 Labs: Laboratory Last Values WBC 12.9 K/mm3 (4.5-11.0) H 10/20/16 06:33 RBC 2.91 M/mm3 (3.65-5.03) L 10/20/16 06:33 Hgb 8.3 gm/dl (10.1-14.3) L 10/20/16 06:33 Hct 25.6 % (30.3-42.9) L 10/20/16 06:33 MCV 88 fl (79-97) 10/20/16 06:33 MCH 29 pg (28-32) 10/20/16 06:33 MCHC 33 % (30-34) 10/20/16 06:33 RDW 14.8 % (13.2-15.2) 10/20/16 06:33 Plt Count 181 K/mm3 (140-440) 10/20/16 06:33 Lymph % (Auto) 5.2 % (13.4-35.0) L 10/20/16 06:33 [place] % (Auto) 7.2 % (0.0-7.3) 10/20/16 06:33 Eos % (Auto) 0.2 % (0.0-4.3) 10/20/16 06:33 Baso % (Auto) 0.1 % (0.0-1.8) 10/20/16 06:33 Lymph # 0.7 K/mm3 (1.2-5.4) L 10/20/16 06:33 [place] # 0.9 K/mm3 (0.0-0.8) H 10/20/16 06:33 Eos # 0.0 K/mm3 (0.0-0.4) 10/20/16 06:33 Baso # 0.0 K/mm3 (0.0-0.1) 10/20/16 06:33 Add Manual Diff Complete 10/16/16 06:31 Total Counted 100 10/16/16 06:31 Seg Neutrophils % 87.3 % (40.0-70.0) H 10/20/16 06:33 Seg Neuts % (Manual) 93.0 % (40.0-70.0) H 10/16/16 06:31 Band Neutrophils % 1.0 % 10/16/16 06:31 Lymphocytes % (Manual) 4.0 % (13.4-35.0) L 10/16/16 06:31 Reactive Lymphs % (Man) 0 % 10/16/16 06:31 Monocytes % (Manual) 2.0 % (0.0-7.3) 10/16/16 06:31 Eosinophils % (Manual) 0 % (0.0-4.3) 10/16/16 06:31 Basophils % (Manual) 0 % (0.0-1.8) 10/16/16 06:31 Metamyelocytes % 0 % 10/16/16 06:31 Myelocytes % 0 % 10/16/16 06:31 Promyelocytes % 0 % 10/16/16 06:31 Blast Cells % 0 % 10/16/16 06:31 Nucleated RBC % Not Reportable 10/16/16 06:31 Seg Neutrophils # 11.3 K/mm3 (1.8-7.7) H 10/20/16 06:33 Seg Neutrophils # Man 11.7 K/mm3 (1.8-7.7) H 10/16/16 06:31 Band Neutrophils # 0.1 K/mm3 10/16/16 06:31 Lymphocytes # (Manual) 0.5 K/mm3 (1.2-5.4) L 10/16/16 06:31 Abs React Lymphs (Man) 0.0 K/mm3 10/16/16 06:31 Monocytes # (Manual) 0.3 K/mm3 (0.0-0.8) 10/16/16 06:31 Eosinophils # (Manual) 0.0 K/mm3 (0.0-0.4) 10/16/16 06:31 Basophils # (Manual) 0.0 K/mm3 (0.0-0.1) 10/16/16 06:31 Metamyelocytes # 0.0 K/mm3 10/16/16 06:31 Myelocytes # 0.0 K/mm3 10/16/16 06:31 Promyelocytes # 0.0 K/mm3 10/16/16 06:31 Blast Cells # 0.0 K/mm3 10/16/16 06:31 WBC Morphology Not Reportable 10/16/16 06:31 Hypersegmented Neuts Not Reportable 10/16/16 06:31 Hyposegmented Neuts Not Reportable 10/16/16 06:31 Hypogranular Neuts Not Reportable 10/16/16 06:31 Smudge Cells Not Reportable 10/16/16 06:31 Toxic Granulation Not Reportable 10/16/16 06:31 Toxic Vacuolation Not Reportable 10/16/16 06:31 Dohle Bodies Not Reportable 10/16/16 06:31 Pelger-Huet Anomaly Not Reportable 10/16/16 06:31 Ladan Rods Not Reportable 10/16/16 06:31 Platelet Estimate Consistent w auto 10/16/16 06:31 Clumped Platelets Not Reportable 10/16/16 06:31 Plt Clumps, EDTA Not Reportable 10/16/16 06:31 Large Platelets Not Reportable 10/16/16 06:31 Giant Platelets Not Reportable 10/16/16 06:31 Platelet Satelliting Not Reportable 10/16/16 06:31 Plt Morphology Comment Not Reportable 10/16/16 06:31 RBC Morphology Not Reportable 10/16/16 06:31 Dimorphic RBCs Not Reportable 10/16/16 06:31 Polychromasia Not Reportable 10/16/16 06:31 Hypochromasia Not Reportable 10/16/16 06:31 Poikilocytosis Not Reportable 10/16/16 06:31 Anisocytosis 1+ 10/16/16 06:31 Microcytosis Not Reportable 10/16/16 06:31 Macrocytosis Not Reportable 10/16/16 06:31 Spherocytes Not Reportable 10/16/16 06:31 Pappenheimer Bodies Not Reportable 10/16/16 06:31 Sickle Cells Not Reportable 10/16/16 06:31 Target Cells Not Reportable 10/16/16 06:31 Tear Drop Cells Not Reportable 10/16/16 06:31 Ovalocytes Not Reportable 10/16/16 06:31 Stomatocytes Few 10/16/16 06:31 Helmet Cells Not Reportable 10/16/16 06:31 [place] Bodies Not Reportable 10/16/16 06:31 [place] Rings Not Reportable 10/16/16 06:31 [place] Cells Not Reportable 10/16/16 06:31 Bite Cells Not Reportable 10/16/16 06:31 Crenated Cell Not Reportable 10/16/16 06:31 Elliptocytes Not Reportable 10/16/16 06:31 Acanthocytes (Spur) Not Reportable 10/16/16 06:31 Rouleaux Not Reportable 10/16/16 06:31 Hemoglobin C Crystals Not Reportable 10/16/16 06:31 Schistocytes Not Reportable 10/16/16 06:31 Malaria parasites Not Reportable 10/16/16 06:31 Jhony Bodies Not Reportable 10/16/16 06:31 Hem Pathologist Commnt No 10/16/16 06:31 POC ABG pH 7.544 (7.35-7.45) H 10/12/16 21:17 POC ABG pCO2 29.4 (35-45) L 10/12/16 21:17 POC ABG pO2 110 (80-105) H 10/12/16 21:17 POC ABG HCO3 25.4 10/12/16 21:17 POC ABG Total CO2 26 10/12/16 21:17 POC ABG O2 Sat 99 10/12/16 21:17 POC ABG Base Excess 3 10/12/16 21:17 VBG pH 6.953 (7.320-7.420) L* 10/12/16 06:45 FiO2 32 % 10/12/16 21:17 Sodium 140 mmol/L (137-145) 10/20/16 06:33 Potassium 4.3 mmol/L (3.6-5.0) 10/20/16 06:33 Chloride 99.5 mmol/L (98-107) 10/20/16 06:33 Carbon Dioxide 24 mmol/L (22-30) 10/20/16 06:33 Anion Gap 21 mmol/L 10/20/16 06:33 BUN 28 mg/dL (7-17) H 10/20/16 06:33 Creatinine 3.7 mg/dL (0.7-1.2) H 10/20/16 06:33 Estimated GFR 15 ml/min 10/20/16 06:33 BUN/Creatinine Ratio 7.56 % 10/20/16 06:33 Glucose 155 mg/dL (65-100) H 10/20/16 06:33 POC Glucose 163 (70-105) H 10/20/16 05:44 Lactic Acid 1.1 mmol/L (0.7-2.0) 10/14/16 11:20 Uric Acid 2.9 mg/dL (3.5-7.6) L 10/18/16 17:04 Calcium 8.4 mg/dL (8.4-10.2) 10/20/16 06:33 Total Bilirubin 0.2 mg/dL (0.1-1.2) 10/13/16 17:45 AST 43 units/L (5-40) H 10/13/16 17:45 ALT 5 units/L (7-56) L 10/13/16 17:45 Alkaline Phosphatase 66 units/L (35-129) 10/13/16 17:45 Troponin T 0.087 ng/mL (0.00-0.029) H 10/12/16 00:02 Total Protein 5.2 g/dL (6.3-8.2) L 10/13/16 17:45 Albumin 2.4 g/dL (3.9-5) L 10/13/16 17:45 Albumin/Globulin Ratio 0.9 % 10/13/16 17:45 Triglycerides 132 mg/dL (2-149) 10/12/16 00:02 Cholesterol 135 mg/dL (50-199) 10/12/16 00:02 LDL Cholesterol Direct 68 mg/dL (50-130) 10/12/16 00:02 HDL Cholesterol 41 mg/dL (40-59) 10/12/16 00:02 Cholesterol/HDL Ratio 3.29 % 10/12/16 00:02 Lipase 214 units/L (13-60) H 10/12/16 00:02 Urine Color Yellow (Yellow) 10/11/16 00:10 Urine Turbidity Clear (Clear) 10/11/16 00:10 Urine pH 5.0 (5.0-7.0) 10/11/16 00:10 Ur Specific [place] 1.011 (1.003-1.030) 10/11/16 00:10 Urine Protein 100 mg/dl mg/dL (Negative) 10/11/16 00:10 Urine Glucose (UA) Neg mg/dL (Negative) 10/11/16 00:10 Urine Ketones Tr mg/dL (Negative) 10/11/16 00:10 Urine Blood Sm (Negative) 10/11/16 00:10 Urine Nitrite Neg (Negative) 10/11/16 00:10 Urine Bilirubin Neg (Negative) 10/11/16 00:10 Urine Urobilinogen < 2.0 mg/dL (<2.0) 10/11/16 00:10 Ur Leukocyte Esterase Neg (Negative) 10/11/16 00:10 Urine WBC (Auto) 1.0 /HPF (0.0-6.0) 10/11/16 00:10 Urine RBC (Auto) < 1.0 /HPF (0.0-6.0) 10/11/16 00:10 U Epithel Cells (Auto) 5.0 /HPF (0-13.0) 10/11/16 00:10 Amorphous Crystals 1+ 10/11/16 00:10 Blood Type O POSITIVE 10/13/16 07:51 Antibody Screen Negative 10/13/16 07:51 Crossmatch See Detail 10/13/16 07:51
[2016-10-20] MEDS: COZAAR PO SCH (10:21)
[2016-10-20] MEDS: PEPCID PO SCH (10:21)
[2016-10-20] MEDS: TYLENOL PO PRN ×2 (10:23→21:51)
[2016-10-20] MEDS: ULTRAM PO PRN (19:24)
[2016-10-21] MEDS ORDERED: MOTRIN PO ONE (01:21)
[2016-10-21] MEDS: APRESOLINE IV PRN ×2 (02:08→10:10)
[2016-10-21] MEDS ORDERED: MORPHINE IV ONE (04:03)
[2016-10-21] MEDS: NITRO-BID 2% TP SCH ×2 (06:24→14:00)
[2016-10-21] MEDS: NOVOLOG SUB-Q SCH ×3 (07:30→16:00)
--- NOTE | 2016-10-21 07:55 | Progress Note ---
Assessment and Plan mpression: * End stage renal disease on HD MWF * Severe metabolic acidosis - resolved * Malfunctioning IJ permcath--s/p exchange * Sepsis * Anemia secondary to ESRD * Hypokalemia Plan: * Hemodialysis MWF; UF as tolerated * HD via right internal jugular permcath - exchanged 10/16 * Adjust K bath w/ dialysis * Abx per primary team * Renal diet * Epogen for goal Hb 10-12 * stable for dc from renal standpoint * pt/ot to eval and treat, numerous complaints Subjective Date of service: 10/21/16 Principal diagnosis: SIRS Interval history: resting well in bed today Objective - Exam Narrative Exam: - General Appearance General appearance: well-developed, well-nourished EENT: other (left eye ecchymosis) Neck: no JVD Respiratory: Present: Clear to Ascultation Cardiology: regular, S1S2 Gastrointestinal: normal Integumentary: no rash, warm and dry Musculoskeletal: other (no edema) Psychiatric: mood/affect appropriate, cooperative - Vital Signs Vital signs: Vital Signs - 12hr 10/20/16 10/20/16 10/20/16 21:06 22:00 23:59 Temperature 99.8 F H 98.4 F Pulse Rate Pulse Rate [ 127 H From Monitor] Pulse Rate [ 129 H Left Radial] Pulse Rate [ 127 H Right Radial] Respiratory 20 20 20 Rate Blood Pressure Blood Pressure 197/104 [Left Calf] Blood Pressure 191/104 [Right Calf] O2 Sat by Pulse 96 97 98 Oximetry 10/21/16 10/21/16 10/21/16 02:08 03:58 06:24 Temperature 98.6 F Pulse Rate 127 H 70 Pulse Rate [ From Monitor] Pulse Rate [ Left Radial] Pulse Rate [ 138 H Right Radial] Respiratory 18 Rate Blood Pressure 191/104 182/133 Blood Pressure [Left Calf] Blood Pressure 179/117 [Right Calf] O2 Sat by Pulse 97 Oximetry - Lab 10/20/16 06:33 10/20/16 06:33 Most recent lab results Calcium 8.4 mg/dL (8.4-10.2) 10/20/16 06:33
[2016-10-21] MEDS: PEPCID PO SCH (10:10)
[2016-10-21] MEDS: ULTRAM PO PRN (10:10)
[2016-10-21] MEDS: COZAAR PO SCH (10:10)
[2016-10-21] MEDS ORDERED: LEVAQUIN 250MG/50ML 250 MG/50 ML BAG IV SCH (12:00)
--- NOTE | 2016-10-21 13:36 | Progress Note ---
Assessment and Plan Assessment and plan: 1. ESRD. Continue hemodialysis Friday, Friday and Friday. Nephrology following. 2. Severe metabolic acidosis. Resolved. 3. Malfunctioning IJ PermCath. Hemodialysis via right internal jugular PermCath exchange 10/16/16. 4. SIRS. No clear evidence of infection. Patient has had negative cultures, chest x-ray and UA. 5. Right hand/wrist swelling. ? Cellulitis. No reports of trauma. Continue antibiotics for now. Uric acid level normal. Hand and wrist plain films only revealed soft tissue swelling. No other abnormalities. I discussed the case with Dr. Nuñez yesterday--Orthopedics consultation pending. Restart colchicine. 6. Dysphagia. Await Speech evaluation. 7. Accelerated hypertension. And hydralazine to her regimen. History Interval history: Patient still complains of right wrist and hand pain. Hospitalist Physical - Constitutional Vitals: Temp Pulse Resp BP Pulse Ox 98 F 98 H 18 184/98 98 10/21/16 12:00 10/21/16 12:00 10/21/16 12:00 10/21/16 12:00 10/21/16 08:00 General appearance: Present: no acute distress - EENT Eyes: Present: PERRL, EOM intact ENT: hearing intact, clear oral mucosa, dentition normal - Neck Neck: Present: supple, normal ROM - Respiratory Respiratory effort: normal Respiratory: bilateral: CTA - Cardiovascular Rhythm: regular Heart Sounds: Present: S1 & S2. Absent: gallop, rub - Extremities Extremities: no ischemia, No edema, Full ROM - Abdominal General gastrointestinal: soft, non-tender, non-distended, normal bowel sounds - Integumentary Integumentary: Present: clear, warm, dry - Neurologic Neurologic: CNII-XII intact, moves all extremities Results - Labs CBC & Chem 7: 10/20/16 06:33 10/20/16 06:33 Labs: Laboratory Last Values WBC 12.9 K/mm3 (4.5-11.0) H 10/20/16 06:33 RBC 2.91 M/mm3 (3.65-5.03) L 10/20/16 06:33 Hgb 8.3 gm/dl (10.1-14.3) L 10/20/16 06:33 Hct 25.6 % (30.3-42.9) L 10/20/16 06:33 MCV 88 fl (79-97) 10/20/16 06:33 MCH 29 pg (28-32) 10/20/16 06:33 MCHC 33 % (30-34) 10/20/16 06:33 RDW 14.8 % (13.2-15.2) 10/20/16 06:33 Plt Count 181 K/mm3 (140-440) 10/20/16 06:33 Lymph % (Auto) 5.2 % (13.4-35.0) L 10/20/16 06:33 [place] % (Auto) 7.2 % (0.0-7.3) 10/20/16 06:33 Eos % (Auto) 0.2 % (0.0-4.3) 10/20/16 06:33 Baso % (Auto) 0.1 % (0.0-1.8) 10/20/16 06:33 Lymph # 0.7 K/mm3 (1.2-5.4) L 10/20/16 06:33 [place] # 0.9 K/mm3 (0.0-0.8) H 10/20/16 06:33 Eos # 0.0 K/mm3 (0.0-0.4) 10/20/16 06:33 Baso # 0.0 K/mm3 (0.0-0.1) 10/20/16 06:33 Add Manual Diff Complete 10/16/16 06:31 Total Counted 100 10/16/16 06:31 Seg Neutrophils % 87.3 % (40.0-70.0) H 10/20/16 06:33 Seg Neuts % (Manual) 93.0 % (40.0-70.0) H 10/16/16 06:31 Band Neutrophils % 1.0 % 10/16/16 06:31 Lymphocytes % (Manual) 4.0 % (13.4-35.0) L 10/16/16 06:31 Reactive Lymphs % (Man) 0 % 10/16/16 06:31 Monocytes % (Manual) 2.0 % (0.0-7.3) 10/16/16 06:31 Eosinophils % (Manual) 0 % (0.0-4.3) 10/16/16 06:31 Basophils % (Manual) 0 % (0.0-1.8) 10/16/16 06:31 Metamyelocytes % 0 % 10/16/16 06:31 Myelocytes % 0 % 10/16/16 06:31 Promyelocytes % 0 % 10/16/16 06:31 Blast Cells % 0 % 10/16/16 06:31 Nucleated RBC % Not Reportable 10/16/16 06:31 Seg Neutrophils # 11.3 K/mm3 (1.8-7.7) H 10/20/16 06:33 Seg Neutrophils # Man 11.7 K/mm3 (1.8-7.7) H 10/16/16 06:31 Band Neutrophils # 0.1 K/mm3 10/16/16 06:31 Lymphocytes # (Manual) 0.5 K/mm3 (1.2-5.4) L 10/16/16 06:31 Abs React Lymphs (Man) 0.0 K/mm3 10/16/16 06:31 Monocytes # (Manual) 0.3 K/mm3 (0.0-0.8) 10/16/16 06:31 Eosinophils # (Manual) 0.0 K/mm3 (0.0-0.4) 10/16/16 06:31 Basophils # (Manual) 0.0 K/mm3 (0.0-0.1) 10/16/16 06:31 Metamyelocytes # 0.0 K/mm3 10/16/16 06:31 Myelocytes # 0.0 K/mm3 10/16/16 06:31 Promyelocytes # 0.0 K/mm3 10/16/16 06:31 Blast Cells # 0.0 K/mm3 10/16/16 06:31 WBC Morphology Not Reportable 10/16/16 06:31 Hypersegmented Neuts Not Reportable 10/16/16 06:31 Hyposegmented Neuts Not Reportable 10/16/16 06:31 Hypogranular Neuts Not Reportable 10/16/16 06:31 Smudge Cells Not Reportable 10/16/16 06:31 Toxic Granulation Not Reportable 10/16/16 06:31 Toxic Vacuolation Not Reportable 10/16/16 06:31 Dohle Bodies Not Reportable 10/16/16 06:31 Pelger-Huet Anomaly Not Reportable 10/16/16 06:31 Ladan Rods Not Reportable 10/16/16 06:31 Platelet Estimate Consistent w auto 10/16/16 06:31 Clumped Platelets Not Reportable 10/16/16 06:31 Plt Clumps, EDTA Not Reportable 10/16/16 06:31 Large Platelets Not Reportable 10/16/16 06:31 Giant Platelets Not Reportable 10/16/16 06:31 Platelet Satelliting Not Reportable 10/16/16 06:31 Plt Morphology Comment Not Reportable 10/16/16 06:31 RBC Morphology Not Reportable 10/16/16 06:31 Dimorphic RBCs Not Reportable 10/16/16 06:31 Polychromasia Not Reportable 10/16/16 06:31 Hypochromasia Not Reportable 10/16/16 06:31 Poikilocytosis Not Reportable 10/16/16 06:31 Anisocytosis 1+ 10/16/16 06:31 Microcytosis Not Reportable 10/16/16 06:31 Macrocytosis Not Reportable 10/16/16 06:31 Spherocytes Not Reportable 10/16/16 06:31 Pappenheimer Bodies Not Reportable 10/16/16 06:31 Sickle Cells Not Reportable 10/16/16 06:31 Target Cells Not Reportable 10/16/16 06:31 Tear Drop Cells Not Reportable 10/16/16 06:31 Ovalocytes Not Reportable 10/16/16 06:31 Stomatocytes Few 10/16/16 06:31 Helmet Cells Not Reportable 10/16/16 06:31 [place] Bodies Not Reportable 10/16/16 06:31 [place] Rings Not Reportable 10/16/16 06:31 [place] Cells Not Reportable 10/16/16 06:31 Bite Cells Not Reportable 10/16/16 06:31 Crenated Cell Not Reportable 10/16/16 06:31 Elliptocytes Not Reportable 10/16/16 06:31 Acanthocytes (Spur) Not Reportable 10/16/16 06:31 Rouleaux Not Reportable 10/16/16 06:31 Hemoglobin C Crystals Not Reportable 10/16/16 06:31 Schistocytes Not Reportable 10/16/16 06:31 Malaria parasites Not Reportable 10/16/16 06:31 Jhony Bodies Not Reportable 10/16/16 06:31 Hem Pathologist Commnt No 10/16/16 06:31 POC ABG pH 7.544 (7.35-7.45) H 10/12/16 21: POC ABG pCO2 29.4 (35-45) L 10/12/16 21:17 POC ABG pO2 110 (80-105) H 10/12/16 21:17 POC ABG HCO3 25.4 10/12/16 21:17 POC ABG Total CO2 26 10/12/16 21:17 POC ABG O2 Sat 99 10/12/16 21:17 POC ABG Base Excess 3 10/12/16 21:17 VBG pH 6.953 (7.320-7.420) L* 10/12/16 06:45 FiO2 32 % 10/12/16 21:17 Sodium 140 mmol/L (137-145) 10/20/16 06:33 Potassium 4.3 mmol/L (3.6-5.0) 10/20/16 06:33 Chloride 99.5 mmol/L (98-107) 10/20/16 06:33 Carbon Dioxide 24 mmol/L (22-30) 10/20/16 06:33 Anion Gap 21 mmol/L 10/20/16 06:33 BUN 28 mg/dL (7-17) H 10/20/16 06:33 Creatinine 3.7 mg/dL (0.7-1.2) H 10/20/16 06:33 Estimated GFR 15 ml/min 10/20/16 06:33 BUN/Creatinine Ratio 7.56 % 10/20/16 06:33 Glucose 155 mg/dL (65-100) H 10/20/16 06:33 POC Glucose 139 (70-105) H 10/21/16 11:48 Lactic Acid 1.1 mmol/L (0.7-2.0) 10/14/16 11:20 Uric Acid 2.9 mg/dL (3.5-7.6) L 10/18/16 17:04 Calcium 8.4 mg/dL (8.4-10.2) 10/20/16 06:33 Total Bilirubin 0.2 mg/dL (0.1-1.2) 10/13/16 17:45 AST 43 units/L (5-40) H 10/13/16 17:45 ALT 5 units/L (7-56) L 10/13/16 17:45 Alkaline Phosphatase 66 units/L (35-129) 10/13/16 17:45 Troponin T 0.087 ng/mL (0.00-0.029) H 10/12/16 00:02 Total Protein 5.2 g/dL (6.3-8.2) L 10/13/16 17:45 Albumin 2.4 g/dL (3.9-5) L 10/13/16 17:45 Albumin/Globulin Ratio 0.9 % 10/13/16 17:45 Triglycerides 132 mg/dL (2-149) 10/12/16 00:02 Cholesterol 135 mg/dL (50-199) 10/12/16 00:02 LDL Cholesterol Direct 68 mg/dL (50-130) 10/12/16 00:02 HDL Cholesterol 41 mg/dL (40-59) 10/12/16 00:02 Cholesterol/HDL Ratio 3.29 % 10/12/16 00:02 Lipase 214 units/L (13-60) H 10/12/16 00:02 Urine Color Yellow (Yellow) 10/11/16 00:10 Urine Turbidity Clear (Clear) 10/11/16 00:10 Urine pH 5.0 (5.0-7.0) 10/11/16 00:10 Ur Specific [place] 1.011 (1.003-1.030) 10/11/16 00:10 Urine Protein 100 mg/dl mg/dL (Negative) 10/11/16 00:10 Urine Glucose (UA) Neg mg/dL (Negative) 10/11/16 00:10 Urine Ketones Tr mg/dL (Negative) 10/11/16 00:10 Urine Blood Sm (Negative) 10/11/16 00:10 Urine Nitrite Neg (Negative) 10/11/16 00:10 Urine Bilirubin Neg (Negative) 10/11/16 00:10 Urine Urobilinogen < 2.0 mg/dL (<2.0) 10/11/16 00:10 Ur Leukocyte Esterase Neg (Negative) 10/11/16 00:10 Urine WBC (Auto) 1.0 /HPF (0.0-6.0) 10/11/16 00:10 Urine RBC (Auto) < 1.0 /HPF (0.0-6.0) 10/11/16 00:10 U Epithel Cells (Auto) 5.0 /HPF (0-13.0) 10/11/16 00:10 Amorphous Crystals 1+ 10/11/16 00:10 Blood Type O POSITIVE 10/13/16 07:51 Antibody Screen Negative 10/13/16 07:51 Crossmatch See Detail 10/13/16 07:51
[2016-10-21] MEDS: APRESOLINE PO SCH ×2 (14:37→23:39)
[2016-10-21] MEDS ORDERED: NACL 0.9 (PRIMING MACHINE ONLY DIALYSIS) MC ONE (18:24)
[2016-10-21] MEDS: HEPARIN IV PRN (21:09)
[2016-10-21] MEDS: COLCRYS PO SCH (23:40)
[2016-10-21] MEDS: TYLENOL PO PRN (23:40)
[2016-10-22] MEDS: NOVOLOG SUB-Q SCH ×3 (00:02→11:30)
[2016-10-22] MEDS: NITRO-BID 2% TP SCH (06:14)
[2016-10-22] MEDS: APRESOLINE PO SCH ×2 (06:15→14:10)
[2016-10-22] MEDS: ULTRAM PO PRN (09:54)
[2016-10-22] MEDS: PEPCID PO SCH (09:54)
[2016-10-22] MEDS: COZAAR PO SCH (09:54)
[2016-10-22] MEDS: COLCRYS PO SCH (12:38)
[2016-10-22] MEDS ORDERED: MORPHINE IV PRN (13:26)
[2016-10-22] MEDS ORDERED: MORPHINE IV ONE (13:46)
[2016-10-22] MEDS ORDERED: TRIPLE ANTIBIOTIC TP ONE (15:00)
[2016-10-22 16:07] VITALS: BP 132/78
[2016-10-24] MEDS ORDERED: COLCRYS PO SCH (10:00)
== END 2016-10-22 17:41 | DRG 286 ==
LOC: ED 23:43 → CC1 10-12 05:39 → 3A 10-14 19:44 → UNDODISIN 10-22 15:55
PROVIDERS: ADMIT Internal Medicine; ATTEND Internal Medicine
PROC: 06H033Z Insertion of Infusion Device into Inferior Vena Cava, Percutaneous Approach (ICD-10-PCS; principal; 2016-10-12)
PROC: B549ZZA Ultrasonography of Inferior Vena Cava, Guidance (ICD-10-PCS; principal; 2016-10-12)
PROC: 5A1D60Z (ICD-10-PCS; 2016-10-12)
PROC: 30233N1 Transfusion of Nonautologous Red Blood Cells into Peripheral Vein, Percutaneous Approach (ICD-10-PCS; 2016-10-12)
PROC: B549ZZA Ultrasonography of Inferior Vena Cava, Guidance (ICD-10-PCS; 2016-10-12)
PROC: 02H633Z Insertion of Infusion Device into Right Atrium, Percutaneous Approach (ICD-10-PCS; 2016-10-16)
PROC: 06PYX3Z Removal of Infusion Device from Lower Vein, External Approach (ICD-10-PCS; 2016-10-16)
PROC: B2141ZZ Fluoroscopy of Right Heart using Low Osmolar Contrast (ICD-10-PCS; 2016-10-16)
DX: T82.898A Other specified complication of vascular prosthetic devices, implants and grafts, initial encounter (principal); N18.6 End stage renal disease; J96.00 Acute respiratory failure, unspecified whether with hypoxia or hypercapnia; G92 Toxic encephalopathy; I12.0 Hypertensive chronic kidney disease with stage 5 chronic kidney disease or end stage renal disease; N17.9 Acute kidney failure, unspecified; Z99.2 Dependence on renal dialysis; Z86.73 Personal history of transient ischemic attack (TIA), and cerebral infarction without residual deficits; E11.649 Type 2 diabetes mellitus with hypoglycemia without coma; K21.9 Gastro-esophageal reflux disease without esophagitis; E87.5 Hyperkalemia; Z82.49 Family history of ischemic heart disease and other diseases of the circulatory system; D63.1 Anemia in chronic kidney disease; E87.6 Hypokalemia; Z91.15 Patient's noncompliance with renal dialysis; R13.10 Dysphagia, unspecified; M10.9 Gout, unspecified; W19.XXXA Unspecified fall, initial encounter; Z91.81 History of falling
CPT/HCPCS: 36415; 36581; 36600; 70450; 71010; 72170; 74000; 77001; 80048; 80053; 80061; 81001; 82140; 82803; 82805; 82962; 83690; 84132; 84484; 84550; 85007; 85014; 85018; 85025; 85027; 86850; 86900; 86901; 86920; 87040; 90686; 90732; 93005; 93010; 94760; 96361; 96365; 96367; 96375; A6250; C1769; G8978-GP; G8979-GP; G8987-GO; G8988-GO; G8996-GN; G8997-GN; J0360; J0690; J0696; J1644; J1815; J1956; J2250; J2270; J2405; J2543; J2930; J3010; J3370; J3480; J7030; J7040; J7050; J7070; P9016

== ENCOUNTER 2017-06-10 05:42 | Day surgery (SDC) | payer MEDICARE ==
[2017-06-10] MEDS ORDERED: ANCEF/STERILE WATER 2 GM/20 ML 2 GM/20 ML SYRINGE IV NR (06:00)
[2017-06-10] MEDS ORDERED: NACL 0.9% 1000 ML 1,000 ML IV SCH (06:00)
[2017-06-10] MEDS ORDERED: NACL BACTERIOSTATIC INFILTRATI ONE (06:21)
[2017-06-10] MEDS ORDERED: DILAUDID IV PRN (06:48)
--- NOTE | 2017-06-10 06:48 | Anesthesia Consultation ---
Anesthesia Consult and Med Hx Date of service: 06/10/17 - Airway Anesthetic Teeth Evaluation: Poor ROM Head & Neck: Adequate Mental/Hyoid Distance: Adequate Mallampati Class: Class II Intubation Access Assessment: Probably Good - Pulmonary Exam CTA: Yes - Cardiac Exam Cardiac Exam: RRR - Pre-Operative Health Status ASA Pre-Surgery Classification: ASA4 Proposed Anesthetic Plan: General - Cardiovascular System Hx Hypertension: Yes Hx Heart Attack/AMI: Yes (2005) - Central Nervous System CVA: Yes (2012, left sided weakness) Hx Psychiatric Problems: No - Endocrine Hx Renal Disease: Yes Hx End Stage Renal Disease: Yes (dialysis MWF) - Other Systems Hx Cancer: No
--- NOTE | 2017-06-10 06:48 | Anesthesia Day of Surgery ---
Anesthesia Day of Surgery - Day of Surgery Patient Examined: Yes Patient H&P Reviewed: Yes Patient is NPO: Yes Beta Blockers: Yes
[2017-06-10 06:56] LABS: Basophils % (Auto) 0.6 % (0.0-1.8); Eosinophils % (Auto) 3.7 % (0.0-4.3); Hematocrit 35.8 % (30.3-42.9); Hemoglobin 11.8 gm/dl (10.1-14.3); Mean Corpuscular HGB Conc 33 % (30-34); Mean Corpuscular Hemoglobin 30 pg (28-32); Mean Corpuscular Volume 91 fl (79-97); Platelet Count 136 K/mm3 (140-440); Red Blood Count 3.92 M/mm3 (3.65-5.03); Red Cell Distribution Width 17.3 % (13.2-15.2)
[2017-06-10 07:06] LABS: INR 1.3 (0.87-1.13)
[2017-06-10 07:13] LABS: Calcium 8.8 mg/dL (8.4-10.2); Chloride 100.2 mmol/L (98-107); Potassium 4.8 mmol/L (3.6-5.0)
[2017-06-10] MEDS ORDERED: DILAUDID ONE (07:14)
[2017-06-10] MEDS ORDERED: XYLOCAINE MPF 2% ONE (07:15)
[2017-06-10] MEDS ORDERED: DIPRIVAN 10 MG/ML IV ONE (07:15)
[2017-06-10] MEDS ORDERED: NACL 0.9% 250ML 250 ML ONE (07:35)
[2017-06-10] MEDS ORDERED: RIFADIN ONE (07:35)
[2017-06-10] MEDS ORDERED: MARCAINE 0.5% INFILTRATI ONE ×2 (07:35→09:04)
[2017-06-10] MEDS ORDERED: HEPARIN 10,000 UNITS/10 ML ONE (07:35)
[2017-06-10] MEDS ORDERED: ZOFRAN ONE ×2 (08:47→13:20)
[2017-06-10] MEDS ORDERED: NACL 0.9% IR ONE (09:04)
[2017-06-10] MEDS ORDERED: HEPARIN 10,000 UNITS/10 ML 1,000 UNIT in NACL 0.9% 250ML 250 ML IR ONE (09:04)
--- NOTE | 2017-06-10 09:51 | Short Stay Summary ---
Short Stay Documentation Date of service: 06/10/17 Narrative H&P: See H&P - Allergies and Medications Current Medications: Allergies No Known Allergies Allergy (Verified 06/10/17 06:20) Home Medications Medication Instructions Recorded Confirmed Last Taken Type AtorvaSTATin [Lipitor] 80 mg PO HS 09/27/16 06/10/17 06/06/17 History Colchicine 0.6 mg PO BID 09/27/16 06/10/17 06/09/17 History HYDROcodone/APAP 5-325 [[place] 1 each PO Q4HR PRN #6 tablet 10/22/16 06/10/17 2 Months Ago Rx 5-325 mg TAB] Carvedilol [Coreg] 3.125 mg PO BID 06/10/17 06/10/17 06/10/17 04:45 History Hydroxyzine HCl 25 mg PO QDAY PRN 06/10/17 06/10/17 06/09/17 History Mirtazapine [Remeron] 30 mg PO QHS 06/10/17 06/10/17 06/09/17 History Sevelamer Carbonate [Renvela] 800 mg PO TIDWM 06/10/17 06/10/17 06/09/17 History Warfarin Sodium [Coumadin] 4 mg PO QDAY 06/10/17 06/10/17 06/09/17 History Active Medications Hydromorphone HCl (Dilaudid) 0.25 mg IV Q10MIN PRN PRN Reason: Pain , Severe (7-10) Stop: 06/10/17 23:59 Cefazolin Sodium (Ancef/Sterile Water 2 Gm/20 Ml) 2 gm in 20 mls @ 80 mls/hr IV PREOP NR PRN Reason: Protocol Stop: 06/10/17 23:59 Sodium Chloride (Nacl 0.9% 1000 Ml) 1,000 mls @ 42 mls/hr IV DIRECT GUANACO Last Admin: 06/10/17 06:45 Dose: 42 mls/hr - Brief post op/procedure progress note Date of procedure: 06/10/17 Pre-op diagnosis: End-Stage Renal Disease Post-op diagnosis: same Procedure: Creation of Right Brachiocephalic Arteriovenous Fistula Anesthesia: GETA Surgeon: MARYLOU STEVENSON Estimated blood loss: minimal Pathology: none Condition: stable - Disposition Condition at discharge: Good Disposition: DC-01 TO HOME OR SELFCARE Short Stay Discharge Plan Wound: open to air, keep clean and dry, other (okay to wash the wound with soap and water but do not soak in water) Special Instructions: no heavy lifting (with left arm) Follow up with: MARYLOU STEVENSON MD [Staff Physician] - 14 Days Prescriptions: HYDROcodone/APAP 7.5-325 [[place] 7.5/325] 1 each PO Q6HR PRN #40 tablet PRN Reason: Pain
--- NOTE | 2017-06-10 09:53 | Operative Report ---
Operative Report Operative Report: Date of procedure: 06/10/2017 Pre-operative diagnosis: End-Stage Renal Disease Post-operative diagnosis: End-Stage Renal Disease Procedure(s): Creation of Right Brachial Artery to Cephalic Vein Arteriovenous Fistula Surgeon: Santo Aguilar MD Commercial Credit Officer: None Anesthesia: Gen. Endotracheal Anesthesia EBL: Minimal Counts: Correct Complications: None Condition: Stable Findings: Successful creation of right brachiocephalic arteriovenous fistula palpable thrill and palpable radial pulse at the completion of the case. Specimen: None Indications: The patient is a 67-year-old female with history of end-stage renal disease currently on hemodialysis through a left internal jugular PermCath. She is in need of long-term access and a vein size and demonstrated adequate vein for creation of a right brachiocephalic arteriovenous fistula. She was given the risks, benefits, and alternative procedures and consented to the procedure. Description of Procedure: The patient was brought to the operating room and laid in supine position after general endotracheal anesthesia was administered the patient was prepped and draped in normal sterile fashion. After anesthetizing the skin a transverse incision was created just below the antecubital crease. Dissection was carried down to the the cephalic vein using sharp dissection. The vein was dissected out both proximally and distally and suture ligated and divided distally. I then ran a 3 Rosemarie proximally in the vein, to ensure patency of the vein. Then flushed the vein with heparinized saline and flow was controlled with a bulldog clamp. I then dissected out the brachial artery through this incision circumferentially both proximal and distal and controlled the artery with vessel loops. I then placed the vessel loops on tension controlling the flow through the artery and created an arteriotomy using an 11 blade and Nguyễn scissors. I created an end to side anastomosis between the cephalic vein and brachial artery using a 6-0 Prolene in running fashion. Prior to completing the anastomosis I flushed the artery both proximally and distally and then advanced a 3 Rosemarie proximally to break the spasm in the artery. I then completed the anastomosis and removed all vessel loops allowing flow into the fistula which had an excellent thrill. I achieved hemostasis with a combination of direct pressure and electrocautery. Once hemostasis was achieved I anesthetized the wound with Marcaine. I then closed the wound in 2 layers and 3-0 Vicryl in a running fashion to close the deep dermal layer and 4- 0 Monocryl in a running fashion in the subcuticular layer. I dressed the wound with Surgicel. The patient tolerated the procedure well, all sponge needle and instrument counts were correct. The patient was taken to recovery in stable condition.
--- NOTE | 2017-06-10 10:22 | Post Anesthesia Evaluation ---
- Post Anesthesia Evaluation Patient Participated: Yes Airway Patent: Yes Stable Respiratory Function: Yes Nausea/Vomiting: No Temp > 96.8F: Yes Pain Manageable: Yes Adequeate Hydration: Yes Anesthesia Complications: No Block Receding Appropriately: Not Applicable Patient on Ventilator: No
[2017-06-10] MEDS ORDERED: NACL P/F VIAL (10 ML) 10 ML ONE (11:45)
[2017-06-10] MEDS ORDERED: HEPARIN IV SCH (12:00)
[2017-06-10] MEDS ORDERED: XYLOCAINE 2% INFILTRATI ONE (13:10)
[2017-06-10] MEDS ORDERED: HEPARIN/NS 5000 UNIT/500ML(CATH LAB) 1,000 ML IR ONE (13:10)
[2017-06-10] MEDS: HEPARIN 10,000 UNITS/10 ML ONE ×2 (13:50→13:51)
--- NOTE | 2017-06-10 13:57 | Event Note ---
Date: 06/10/17 Patient's left internal jugular permacath was inadvertently pulled out while transferring in the recovery area she is in need of replacement. Risks benefits and alternative procedures were given to the daughter who consented to the procedure.
--- NOTE | 2017-06-10 14:01 | Operative Report ---
Operative Report Operative Report: Date of procedure: 06/10/2017 Pre-operative diagnosis: Complications of dialysis access Post-operative diagnosis: Same Procedure(s): 1. Placement of 23 cm GlidePath Permacath 2. Radiologic Supervision with Interpretation Surgeon: Santo Aguilar MD Corpsman: None Anesthesia: Local EBL: Minimal Counts: Correct Complications: None Condition: Stable Findings: Successful placement of left IJ permacath. Specimen: None Indication: The patient is a 67-year-old female with a history of end-stage renal disease who recently underwent creation of a right arm AV fistula. Her permacath was used for IV access. While the patient was transferred to go to the restroom the catheter was inadvertently pulled out and she is in need of replacement. Her daughter was given the risks, benefits, and alternative procedures and consented to the procedure. Description of Procedure: The patient was brought to the terrazzo laborer and laid in supine position and his left neck and chest were prepped and draped in normal sterile fashion. A stiff 0.035 Glidewire was inserted into the exit site on the chest and was able to be advanced through the patient's previous track and into the central venous system under fluoroscopy. The permacath was then placed through the previous track by Seldinger technique, the distal tip in the right atrium. Both ports were aspirated and flushed and then primed with the appropriate amount of heparin. A 2-0 Prolene was used to secure the catheter to the patient's chest. The catheters was dressed sterilely. Final fluoroscopy demonstrated the catheter was in excellent position without any evidence of pneumothorax. The patient tolerated the procedure well, all sponge needle and instrument counts were correct, the patient was taken to recovery in stable condition.
[2017-06-10] MEDS ORDERED: NORCO 5/325 ONE (14:33)
[2017-06-10] MEDS ORDERED: NORCO 5/325 PO ONE (14:48)
[2017-06-10 16:27] VITALS: BP 138/77
--- NOTE | 2017-06-11 14:32 | Vascular Lab Report ---
MISCELLANEOUS VESSEL IDENTIFICATION: COMMENTS ON THE SCAN: The left internal jugular vein was identified and under real-time ultrasound guidance was cannulated. IMPRESSION: Successful ultrasound guided vein cannulation.
== END 2017-06-10 15:30 | disposition home or self-care (01) ==
LOC: OR 05:42
PROVIDERS: ATTEND Surgery Vascular Surgery
DX: T82.49XA Other complication of vascular dialysis catheter, initial encounter (principal); I12.0 Hypertensive chronic kidney disease with stage 5 chronic kidney disease or end stage renal disease; E11.22 Type 2 diabetes mellitus with diabetic chronic kidney disease; N18.6 End stage renal disease; M10.9 Gout, unspecified; I25.2 Old myocardial infarction; F32.9 Major depressive disorder, single episode, unspecified; Z86.73 Personal history of transient ischemic attack (TIA), and cerebral infarction without residual deficits; Z79.01 Long term (current) use of anticoagulants; Z79.899 Other long term (current) drug therapy; Z98.890 Other specified postprocedural states; Z95.1 Presence of aortocoronary bypass graft; E78.00 Pure hypercholesterolemia, unspecified; Z82.49 Family history of ischemic heart disease and other diseases of the circulatory system; Z88.3 Allergy status to other anti-infective agents
CPT/HCPCS: 36415; 36558; 36821; 76937; 77001; 80048; 82962; 85025; 85610; C1750; C1769; J0690; J1170; J1644; J2405; J2704; J3490; J7030; J7050